=== PATIENT | male | born 1945 | race Caucasian/White ===

== ENCOUNTER → 2016-06-27 | Outpatient (CLI) | payer MEDICARE, OTHER ==
--- NOTE | 2016-06-27 07:40 | US ---
EXAMINATION TYPE: US gallbladder DATE OF EXAM: 06/27/2016 7:22 AM COMPARISON: NONE CLINICAL HISTORY: 70-year-old male with abdominal pain. TECHNIQUE: Multiple sonographic images of the right upper quadrant are obtained. FINDINGS: Liver Length: 16.0cm Gallbladder Wall: 3.5 mm CBD: 0.4cm Right Kidney: 11.7 x 4.9 x 5.8cm Pancreas: Within normal limits. Liver: Reaching the upper limits of normal in size. There is increased echogenicity with heterogeneo us echotexture. This secondarily limits assessment for focal lesion. Gallbladder: There is borderline to mild gallbladder wall thickening. No abnormal distention, perich olecystic fluid, or shadowing calculi. Evidence for sonographic Costa's sign: no CBD: Within normal limits. Right Kidney: No hydronephrosis. IMPRESSION: 1. Liver reaching the upper limits of normal in size. There is also increased echogenicity and hetero geneous echotexture. Correlate for hepatic steatosis or other nonspecific hepatocellular disease. 2. Nonspecific gallbladder wall thickening. No ancillary findings of acute cholecystitis. Gallbladder wall thickening can be seen in other settings such as fluid overload states and with adjacent inflam mation (hepatitis, pancreatitis, etc.). Clinical correlation recommended.
== END | disposition home or self-care (01) ==
LOC: RADUSWWP 06:51
PROVIDERS: ATTEND Surgery Plastic and Reconstructive Surgery
DX: K82.8 Other specified diseases of gallbladder (principal); R10.84 Generalized abdominal pain
CPT/HCPCS: 76705

== ENCOUNTER 2016-07-03 08:42 | Day surgery (SDC) | payer MEDICARE, OTHER ==
[2016-06-28 15:07] VITALS: BMI 28.1
[~2016-07-03 08:42] MED LIST: LACTATED RINGERS 1,000 ML IV SCH; LIDOCAINE 1% 20 ML VIAL (10MG/ML) FOR IV START INTRADERMA PRN
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
[2016-07-03] MEDS ORDERED: LIDOCAINE 1% INJ 10MG/ML (20 ML MDV) ONE (09:45)
[2016-07-03] MEDS ORDERED: PROPOFOL 10 MG/ML 20 ML VIAL IV ONE (09:45)
[2016-07-03 09:46] VITALS: TEMP 98.1
--- NOTE | 2016-07-03 10:00 | P.PCN ---
Date of Procedure: 07/03/16 Description of Procedure: PREOPERATIVE DIAGNOSIS: Gastroesophageal reflux disease. POSTOPERATIVE DIAGNOSIS: Erosive esophagitis. Diaphragmatic hiatal hernia. Gastroesophageal reflux disease. OPERATION: Esophagogastroduodenoscopy with biopsies along antrum and esophagus. SURGEON: Melania Murillo MD ANESTHESIA: MAC. INDICATIONS: The patient is a 70-year-old male who presents with a history of reflux disease. Benefits and risks of the procedure were described. Informed consent was obtained. DESCRIPTION: The patient was brought into the endoscopy suite and laid in the left lateral decubitus position. An Olympus gastroscope was passed along the posterior oropharynx down to the distal esophagus where the squamocolumnar junction was encountered at 35 cm from the incisors. The stomach was entered and minimal bile reflux was found. Additional findings are listed below. Biopsies with cold forceps were obtained of the antrum. The first through third portion of the duodenum was examined and unremarkable. Retroflexion of the scope confirmed Hill grade 4 lower esophageal valve. The squamocolumnar junction demostrated LA grade D erosive esophagitis. The stomach was desufflated. The patient tolerated the procedure well. FINDINGS: Squamocolumnar junction 35 cm from the incisors. Diaphragmatic hiatus at 39 cm from the incisors. Hiatal hernia, 4 cm, fixed. Hill grade 4 lower esophageal valve. LA grade D erosive esophagitis. No active duodenitis. RECOMMENDATIONS: Continue medical therapy. Further recommendations pending results of pathology report. Upper endoscopy as needed. Recommend antireflux operation for possible Cuellar's disease.
[2016-07-03 10:29] VITALS: BP 113/66; PULSE 66; RESP 18
== END 2016-07-03 10:50 | disposition home or self-care (01) ==
LOC: ORWHC2ENDO 08:42
PROVIDERS: ATTEND Surgery Plastic and Reconstructive Surgery
DX: K21.0 Gastro-esophageal reflux disease with esophagitis (principal); K44.9 Diaphragmatic hernia without obstruction or gangrene; J44.9 Chronic obstructive pulmonary disease, unspecified; Z86.73 Personal history of transient ischemic attack (TIA), and cerebral infarction without residual deficits; I10 Essential (primary) hypertension; E78.5 Hyperlipidemia, unspecified; Z79.82 Long term (current) use of aspirin; Z79.899 Other long term (current) drug therapy; Z87.891 Personal history of nicotine dependence
CPT/HCPCS: 88305; 43239; J2001; J2704

== ENCOUNTER 2016-09-20 06:41 | Inpatient (IN) | payer MEDICARE, OTHER ==
[2016-09-16 15:49] VITALS: BMI 28.1
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
[~2016-09-20 06:41] MED LIST changes: +ACETAMINOPHEN IV (For NPO) 1,000 MG in EMPTY BAG 1 BAG IVPB ONE; +DEXAMETHASONE SOD PHOSPHATE 10 MG/ML 1 ML VIAL IV ONE; +HEPARIN SODIUM,PORCINE 5,000 UNIT/ML 1 ML VIAL SQ ONE; +HYDROmorphone 1 MG/ML 1 ML SYRINGE IVP PRN; -LACTATED RINGERS 1,000 ML IV SCH; +MIDAZOLAM 2 MG/2 ML VIAL IV PRN; +ONDANSETRON 4 MG/2 ML VIAL IVP ONE; +SCOPOLAMINE 1.5MG/72HR PATCH TRANSDERM ONE; +ceFAZolin 2 GM in SODIUM CHLORIDE 0.9% 100 ML IVPB ONE
[2016-09-20] MEDS: LACTATED RINGERS 1,000 ML IV SCH (07:50)
[2016-09-20] MEDS ORDERED: fentaNYL (PF) 50 MCG/ML 2 ML AMP ONE (08:00)
[2016-09-20] MEDS ORDERED: NEOSTIGMINE 1 MG/ML 10 ML VIAL ONE (08:00)
[2016-09-20] MEDS ORDERED: SUCCINYLCHOLINE CHLORIDE 100 MG/5 ML SYR IV ONE (08:00)
[2016-09-20] MEDS ORDERED: PROPOFOL 10 MG/ML 20 ML VIAL IV ONE (08:00)
[2016-09-20] MEDS ORDERED: LIDOCAINE 1% INJ 10MG/ML (20 ML MDV) ONE (08:00)
[2016-09-20] MEDS ORDERED: ePHEDrine 50 MG/ML 1 ML AMP ONE (08:00)
[2016-09-20] MEDS ORDERED: VECURONIUM 10 MG VIAL IV ONE (08:00)
[2016-09-20] MEDS ORDERED: HYDROmorphone (PF) 1 MG/ML ONE (08:00)
[2016-09-20] MEDS ORDERED: MIDAZOLAM 2 MG/2 ML VIAL ONE (08:00)
[2016-09-20] MEDS ORDERED: GLYCOPYRROLATE 0.2 MG/ML 2 ML VIAL ONE (08:00)
[2016-09-20] MEDS ORDERED: PHENYLEPHRINE-0.9% NACL SYG 1 MG/10 ML SYRINGE ONE (08:00)
[2016-09-20 08:09] LABS: Basophils # (A) 0.1 k/uL (0-0.2); Basophils % (A) 1 %; CHCM 35.4; Eosinophils # (A) 0.3 k/uL (0-0.7); Eosinophils % (A) 6 %; HCT 39.3 % (39.0-53.0); HDW 3.05; HGB 13.6 gm/dL (13.0-17.5); Luc # (Auto) 0.13; Luc % (Auto) 2; Lymphocytes # (A) 1.4 k/uL (1.0-4.8); Lymphocytes % (A) 26 %; MCH 33.3 pg (25.0-35.0); MCHC 34.5 g/dL (31.0-37.0); MCV 96.5 fL (80.0-100.0); Mean Platelet Volume 7.4; Monocytes # (A) 0.4 k/uL (0-1.0); Monocytes % (A) 7 %; Neutrophils # (A) 3.1 k/uL (1.3-7.7); Neutrophils % (A) 57 %; RBC 4.08 m/uL (4.30-5.90); RDW 13.4 % (11.5-15.5); WBC 5.4 k/uL (3.8-10.6); WBC (Perox) 5.42
[2016-09-20 08:20] LABS: ALT 21 U/L (21-72); AST 18 U/L (17-59); Alkaline Phosphatase 42 U/L (38-126); Anion Gap 10 mmol/L; Blood Urea Nitrogen 16 mg/dL (9-20); Calcium 9.4 mg/dL (8.4-10.2); Carbon Dioxide 23 mmol/L (22-30); Chloride 106 mmol/L (98-107); Glucose 83 mg/dL (74-99); Non-African American GFR(MDRD) >60 (>60 ml/min/1.73 sqM); Potassium 3.9 mmol/L (3.5-5.1); Sodium 139 mmol/L (137-145); Total Bilirubin 0.8 mg/dL (0.2-1.3); Total Protein 5.9 g/dL (6.3-8.2)
[2016-09-20] MEDS ORDERED: BUPIVACAIN-EPI 0.25%-1:200,000 30 ML VIAL SQ ONE ×2 (08:34)
[2016-09-20] MEDS ORDERED: SIMETHICONE 40 MG/0.6 ML DROPS 2,000 MG/30 ML BOTTLE PO PRN (10:50)
[2016-09-20] MEDS ORDERED: ONDANSETRON 4 MG/2 ML VIAL IVP PRN (10:50)
[2016-09-20] MEDS ORDERED: HYOSCYAMINE ORAL DROPS 1.875 MG/15 ML BOTTLE PO PRN (10:50)
[2016-09-20] MEDS ORDERED: NALOXONE 0.4 MG/ML 1 ML VIAL IV PRN (10:50)
--- NOTE | 2016-09-20 10:50 | P.OP ---
Date of Procedure: 09/20/16 Description of Procedure: SURGEON: GELACIO FIORE MD PHYSICIAN LOCUMS URGENT CARE: NONE PREOPERATIVE DIAGNOSES: 1. Regurgitation. 2. Symptomatic diaphragmatic hiatal hernia. 3. Gastroesophageal reflux disease. 4. Atypical chest pain. 5. Angina. 6. COPD. 7. Previous history of CVA/TIA. 8. Hypertensive heart disease with heart failure, diastolic dysfunction. 9. Previous history of ischemic small bowel. 10. Migraines. 11. Kidney stones. POSTOPERATIVE DIAGNOSES: 1. Regurgitation. 2. Symptomatic diaphragmatic hiatal hernia. 3. Gastroesophageal reflux disease. 4. Atypical chest pain. 5. Paraesophageal midline diaphragmatic hernia, 5 cm. 6. COPD. 7. Previous history of CVA/TIA. 8. Hypertensive heart disease with heart failure, diastolic dysfunction. 9. Previous history of ischemic small bowel. 10. Migraines. 11. Kidney stones. 12. Angina. OPERATION: 1. Laparoscopic repair of incarcerated paraesophageal hiatal hernia 5 cm with mesh, [place] Biopatch A 8 x 8 cm. 2. Laparoscopic Jm fundoplasty. 3. Intraoperative esophagogastroduodenoscopy. ANESTHESIA: General with 30 mL 0.25% Marcaine with epinephrine. ESTIMATED BLOOD LOSS: 10 mL SPECIMENS: None. COMPLICATIONS: None. INDICATIONS: The patient is a 70-year-old male with long-standing history of gastroesophageal reflux disease including regurgitation. He completed an upper endoscopy demonstrating a symptomatic diaphragmatic hiatal hernia. Additionally a manometry demonstrating no evidence of achalasia or scleroderma. His total lower esophageal sphincter length including intra-abdominal length were short. Surgical intervention with a paraesophageal hiatal hernia repair, Jm fundoplasty and mesh was described. Risks and benefits including but not limited to collapse of the lung, dysphagia, recurrence, need for revisional surgery were reviewed in detail. Informed consent was obtained as all benefits and risks were described. DESCRIPTION: Patient was brought into the operating room, laid in supine position on a split-leg table. After general induction, the abdomen was prepped and draped in a standard sterile fashion using ChloraPrep. An [place] drape was placed. Hodges catheter was not place as the patient had voided. A timeout protocol was confirmed with the surgical team, for which the patient's name, procedure to be performed including DVT prophylaxis with bilateral SCDs, and preoperative antibiotics were also confirmed. From the xiphoid to the umbilicus, an incision was made approximately 12 cm distal and off to the left of the xiphoid using #11 blade after localizing the skin with anesthetic. His thoracic length is 19 cm for his 5 foot 7 inch frame. A 0-degree 5 mm laparoscopic trocar entry was performed to enter the peritoneal cavity at 12 cm distal to the xiphoid. Diagnostic laparoscopy demonstrated no hepatomegaly. A 5 mm trocar was placed along the left lateral costal margin followed by a 11 mm port along the left midclavicular line. A Abner medium-sized liver retractor was placed below the xiphoid and held in place using an iron spring intern. The patient was placed in steep reverse Trendelenburg position. Initial attention was brougth at the hiatus where a 5-cm defect of the anterior hiatus was measured. Circumferentially, the phrenoesophageal ligament and the hiatus were mobilized such that the right and left cathi were visualized. The final defect was 5 cm in size. The distal esophagus intra-abdominal length of at least 3 cm was obtained as moderate dissection into the chest was performed. The bilateral vagi nerves were identified and freed from harm during this portion of dissection. To adequately mobilize the posterior esophagus, the greater curvature of the stomach was mobilized along the short gastrics. Additional difficulty of the case included dense adherence of the gastric cardia to the diaphragm, hiatus and immediate adherence to the spleen. Careful dissection over 30 minutes was performed without injury to the stomach or spleen. The hiatus was reapproximated using 2-0 Surgidac on an Endo Stitch with a [id number] suture posteriorly. [place] Biopatch A 8 x 8 cm was cut in a "arriaga-hole fashion" and placed as an onlay and buttressed to the posterior and anterior hiatal hernia repair. The mesh was tacked to the left cathi using 2-0 Surgidac. The hiatal repair was consistent with a 56-Hungarian bougie as a fenestrated grasper had easily passed through the repair. I then went to the head of the bed to do an intraoperative esophagogastroduodenoscopy. The squamocolumnar junction laid into the intra- abdominal cavity. Additionally no injury to the stomach or esophagus was identified. No gastric or duodenal ulcers were found. A Hill grade 1 lower esophageal valve was confirmed. The stomach was desufflated. This concluded endoscopic portion procedure. All instruments and pneumoperitoneum were evacuated from the abdominal cavity. The incisions were reapproximated using 4-0 Monocryl in a subcuticular fashion for the skin. Total of 30 mL 0.25% Marcaine with epinephrine was infiltrated to all wounds for postop analgesia. Dermabond was applied to the skin. At the end of the procedure, needle, sponge, and instrument count was verified correct by certified surgical assistant. Total of 10 mL blood loss. Intraoperative films were taken and shared with the patient's family. FINDINGS: 1. 5 cm midline paraesophageal hiatal hernia, incarcerated type. 2. [place] Biopatch A 8 x 8 cm used for hernioplasty of the hiatus. 3. Hiatus repair consistent with 56-Hungarian bougie. 4. Dense adherence of super pole of the stomach to hiatus, diaphragm and adherence to the spleen requiring more than 30 minutes of additional dissection.
[2016-09-20] MEDS ORDERED: TAMSULOSIN 0.4 MG CAP.ER.24H PO STA (10:53)
[2016-09-20] MEDS ORDERED: ALBUTEROL INHALER 60 PUFF/8 GM INHALER INHALATION PRN (10:54)
[2016-09-20] MEDS ORDERED: NITROGLYCERIN SL TABS 0.4 MG TAB SUBLINGUAL PRN (10:54)
[2016-09-20] MEDS ORDERED: LORazepam 0.5 MG TAB PO PRN (10:54)
[2016-09-20] MEDS ORDERED: ACETAMINOPHEN IV (For NPO) 1,000 MG in EMPTY BAG 1 BAG IVPB ONE (12:30)
[2016-09-20] MEDS: GABAPENTIN 100 MG CAP PO SCH ×2 (13:31→20:34)
[2016-09-20] MEDS: 0.9% NACL WITH KCL 20 MEQ/L 1,000 ML IV SCH (14:57)
[2016-09-20] MEDS: ceFAZolin 2 GM in SODIUM CHLORIDE 0.9% 100 ML IVPB SCH ×2 (14:59→23:37)
--- NOTE | 2016-09-20 16:51 | FL ---
EXAMINATION TYPE: FL UGI DATE OF EXAM: 09/20/2016 4:43 PM LIMITED UGI-ESOPHAGRAM: CLINICAL HISTORY: History of multiple abdominal surgeries presents with severe reflux-like symptoms status post Justino fundoplication earlier today. TECHNIQUE: Limited esophagram is performed utilizing 50 oz of Omnipaque 350. A total of 92 seconds o f fluoroscopic time was utilized during procedure. FINDINGS: The patient swallowed contrast without difficulty or delay. Esophageal peristalsis and mo tility are satisfactory. There is delayed flow of contrast along the diaphragmatic hiatus into the st omach, there is no evidence of contrast extravasation to suggest leak. Only small amount of contrast flows into stomach majority pooled in dilated distal esophagus. No persistent hiatal hernia is seen. Patient it is noted to remain asymptomatic. IMPRESSION: No evidence of leak status post Justino fundoplication surgery earlier today. Fairly moder ate obstruction at diaphragmatic hiatus or site of surgery is present though patient is noted to yvonne in asymptomatic.
[2016-09-20] MEDS: HYDROmorphone 1 MG/ML 1 ML SYRINGE IVP PRN (18:52)
[2016-09-20] MEDS ORDERED: TAMSULOSIN 0.4 MG CAP.ER.24H PO SCH (21:00)
[2016-09-20] MEDS: HYDROcodone/APAP 15 ML SOLUTION PO PRN (21:55)
[2016-09-21] MEDS: 0.9% NACL WITH KCL 20 MEQ/L 1,000 ML IV SCH (01:13)
[2016-09-21] MEDS: HYDROmorphone 1 MG/ML 1 ML SYRINGE IVP PRN ×2 (01:56→12:58)
[2016-09-21] MEDS: ALBUTEROL NEBULIZED 2.5 MG/3 ML INHALATION PRN ×3 (02:53→11:29)
[2016-09-21] MEDS ORDERED: 0.9% NACL WITH KCL 20 MEQ/L 1,000 ML IV SCH (08:00)
[2016-09-21 08:06] VITALS: RESP 16
[2016-09-21] MEDS: LACTATED RINGERS 1,000 ML IV SCH (08:24)
[2016-09-21] MEDS: HYDROcodone/APAP 15 ML SOLUTION PO PRN (08:29)
[2016-09-21] MEDS: GABAPENTIN 100 MG CAP PO SCH ×2 (08:30→11:22)
[2016-09-21] MEDS ORDERED: ASPIRIN 81 MG CHEW PO SCH (09:00)
[2016-09-21] MEDS ORDERED: amLODIPine 10 MG TAB PO SCH (09:00)
[2016-09-21] MEDS ORDERED: PANTOPRAZOLE 40 MG/10 ML VIAL IV SCH (09:00)
[2016-09-21] MEDS ORDERED: LISINOPRIL 20 MG TAB PO SCH (09:00)
[2016-09-21] MEDS ORDERED: ENOXAPARIN 40 MG/0.4 ML SYRINGE SQ SCH (09:00)
[2016-09-21 09:18] LABS: Anion Gap 10 mmol/L; Blood Urea Nitrogen 10 mg/dL (9-20); Carbon Dioxide 22 mmol/L (22-30); Chloride 106 mmol/L (98-107); Non-African American GFR(MDRD) >60 (>60 ml/min/1.73 sqM); Phosphorous 3.4 mg/dL (2.5-4.5); Potassium 3.9 mmol/L (3.5-5.1); Sodium 138 mmol/L (137-145)
[2016-09-21] MEDS ORDERED: TAMSULOSIN 0.4 MG CAP.ER.24H PO STA (10:43)
--- NOTE | 2016-09-21 10:48 | P.PN ---
Subjective Principal diagnosis: Gastroesophageal reflux disease with hiatal hernia The patient is postoperative day one status post hiatal hernia repair with Jm fundoplasty. He reports mild chest pressure with drinking liquids. He completed an esophagram this morning. He complains of abdominal gas bloat. He was inadvertently given a straw to drink through. Pain is controlled. Objective - Vital Signs Vital signs: Vital Signs Temp 99.2 F 09/21/16 07:00 Pulse 80 09/21/16 07:34 Resp 16 09/21/16 08:00 BP 95/66 09/21/16 07:00 Pulse Ox 92 L 09/21/16 07:00 Intake & Output 09/20/16 09/21/16 09/21/16 18:59 06:59 18:59 Intake Total 2500 650 Output Total 780 2600 195 Balance 1720 -1950 -195 Weight 81.647 kg Intake: IV 2500 Oral 650 Output: Urine 770 2600 195 Straight 195 Estimated Blood Loss 10 Other: Voiding Method Indwelling Catheter Indwelling Catheter - Exam GENERAL: Well developed and in no acute distress. Pleasant. HEENT: No sclera icterus. Extraocular movements grossly intact. Moist buccal mucosa. Head is atraumatic, normocephalic. Hears conversational speech. No nasal drainage. NECK: Supple without lymphadenopathy. No JV distention. CHEST: Non-labored respirations and equal bilateral excursions. CARDIOVASCULAR: Regular rate and rhythm. Palpable 2+ radial pulses. ABDOMEN: Soft, nontender. Has mild to moderate abdominal distention. MUSCULOSKELETAL: No clubbing, cyanosis or edema. NEUROLOGIC: No focal or lateralizing signs. PSYCH: Appropriate affect. Alert and oriented to person, place and time. - Labs CBC & Chem 7: 09/20/16 07:40 09/21/16 07:45 - Imaging and Cardiology Esophagram demonstrates hesitancy of fluid into the stomach. No evidence of leak. Assessment and Plan (1) Status post Jm fundoplication Status: Acute (2) S/P hernia repair Status: Acute (3) GERD (gastroesophageal reflux disease) Status: Acute (4) Hiatal hernia Status: Acute Plan: 1. For his gas bloat, straws were discontinued. Nursing education was provided regarding Jm diet. 2. He has history of obstructive uropathy and is on Flomax. Additional dose of Flomax given this morning. Hodges catheter has been discontinued at 8 AM. Will reevaluate in 6 hours for voids. Bladder scan as needed if no void at noon. 3. For gases distention, Levsin including simethicone for discharge home. 4. Medication adjustment for pharmacy review including crushing medications or liquid form. 5. Potential discharge home pending voids this afternoon.
--- NOTE | 2016-09-21 10:51 | P.DS ---
Providers Date of admission: 09/20/16 06:41 Expected date of discharge: 09/21/16 Attending physician: Melania Murillo Primary care physician: Jayy Schmidt - Discharge Diagnosis(es) (1) Status post Jm fundoplication Current Visit: Yes Status: Acute (2) S/P hernia repair Current Visit: Yes Status: Acute (3) GERD (gastroesophageal reflux disease) Current Visit: No Status: Acute (4) Hiatal hernia Current Visit: No Status: Acute (5) History of urinary tract obstruction Current Visit: Yes Status: Acute Hospital Course: The patient is a 70-year-old gentleman with symptomatic diaphragmatic hiatal hernia including reflux disease. He is status post Jm fundoplasty including hiatal hernia repair. Post-Jm diet instructions reviewed in detail including liquid diet for 2 weeks. He did complain of gas bloat for which medications including simethicone and Levsin was advised for discharge as well. He was asked to avoid all straws to minimize abdominal distention. Medication review including adjustments were advised. Follow-up in the office within 5 days. Prior to discharge, he was unable to void with a history of obstructive uropathy. Urology consultation obtained. Patient will also follow up with urologist outpatient with clear instructions of discontinuing her Hodges catheter the morning of office visit. He was instructed to take those Flomax daily. Pertinent Studies: Esophagram demonstrated no leaks. Procedures: 1. Laparoscopic hiatal hernia repair with mesh. 2. Laparoscopic Jm fundoplasty. 3. Intraoperative esophagogastroduodenoscopy. Patient Condition at Discharge: Stable Plan - Discharge Summary New Discharge Prescriptions: HYDROcodone/APAP [[place] Elixir 7.5-325Mg/15Ml] 15 ml PO Q4HR PRN #300 ml PRN Reason: Pain RX: Simethicone 40 mg/0.6 ml Drops [Mylicon Drops] 40 mg PO QID #120 ml Discharge Medication List RX: Gabapentin [Neurontin] 100 mg PO DAILY@1200 06/17/14 [History] RX: Albuterol Inhaler [Ventolin Hfa Inhaler] 2 puff INHALATION RT-TID PRN [History] RX: Gabapentin [Neurontin] 200 mg PO BID 09/16/14 [History] RX: Aspirin EC [Ecotrin Low Dose] 81 mg PO DAILY tablet. 09/30/14 [Rx] RX: Nitroglycerin Sl Tabs [Nitrostat] 0.4 mg SUBLINGUAL Q5M PRN #0 tab 09/30/14 [Rx] RX: Albuterol Nebulized [Ventolin Nebulized] 2.5 mg INHALATION RT-Q6H PRN [History] LORazepam [Ativan] 0.5 mg PO TID PRN #10 tab 05/24/16 [Rx] Cyanocobalamin (Vitamin B-12) [Vitamin B-12] 1,000 mcg PO DAILY 09/16/16 [ History] amLODIPine BESYLATE/BENAZEPRIL [amLODIPine BESYLATE/BENAZEPRIL 10-20 mg] 1 cap PO DAILY 09/16/16 [History] Tamsulosin [Flomax] 0.4 mg PO HS 09/17/16 [History] HYDROcodone/APAP [[place] Elixir 7.5-325Mg/15Ml] 15 ml PO Q4HR PRN #300 ml [Rx] RX: Simethicone 40 mg/0.6 ml Drops [Mylicon Drops] 40 mg PO QID #120 ml [Rx] Follow up Appointment(s)/Referral(s): Melania Murillo MD [STAFF PHYSICIAN] - 09/24/16 (Please call to confirm time) Patient Instructions/Handouts: *Surgery [facility] - Hodges Catheter Instructions, Hodges Catheter Placement and Care (DC), Adult Laparoscopic Jm Fundoplication (DC), Urinary Leg Bag (GEN), Laparoscopic Hiatal Hernia Repair ( DC) Activity/Diet/Wound Care/Special Instructions: Please follow post-Jm diet. Liquid diet only for 2 weeks. No lifting over 4 pounds in 4 weeks. Please see list for medications to open capsule or crush. After at 6 AM in the morning prior to office visit. Discharge Disposition: HOME SELF-CARE
[2016-09-21 15:37] VITALS: BP 110/74; PULSE 87; TEMP 98.7
== END 2016-09-21 15:52 | disposition home or self-care (01) | DRG 328 ==
LOC: 2ORWHC 06:41 → EDSTATUS 07:30 → 4MS4W 11:24
PROVIDERS: ADMIT Surgery Plastic and Reconstructive Surgery; ATTEND Surgery Plastic and Reconstructive Surgery
PROC: 0BUR4JZ (ICD-10-PCS; principal; 2016-09-20 08:00)
PROC: 0DV44ZZ Restriction of Esophagogastric Junction, Percutaneous Endoscopic Approach (ICD-10-PCS; principal; 2016-09-20 08:00)
PROC: 0BUS4JZ (ICD-10-PCS; principal; 2016-09-20 08:00)
PROC: 0DJ08ZZ Inspection of Upper Intestinal Tract, Via Natural or Artificial Opening Endoscopic (ICD-10-PCS; principal; 2016-09-20 08:00)
DX: K44.9 Diaphragmatic hernia without obstruction or gangrene (principal); J44.9 Chronic obstructive pulmonary disease, unspecified; K21.9 Gastro-esophageal reflux disease without esophagitis; Z87.891 Personal history of nicotine dependence; Z79.899 Other long term (current) drug therapy; Z80.0 Family history of malignant neoplasm of digestive organs; Z82.5 Family history of asthma and other chronic lower respiratory diseases; Z86.73 Personal history of transient ischemic attack (TIA), and cerebral infarction without residual deficits; Z87.442 Personal history of urinary calculi
CPT/HCPCS: 74240; 80051; 80053; 82565; 83735; 84100; 84520; 85025; 94640

== ENCOUNTER 2016-10-22 13:07 | Emergency (ER) | payer MEDICARE, OTHER ==
[2016-10-22 13:19] VITALS: RESP 18
[2016-10-22] MEDS ORDERED: SODIUM CHLORIDE 0.9% 1,000 ML IV ONE (13:30)
[2016-10-22] MEDS ORDERED: MORPHINE SULFATE 4 MG/ML SYRINGE IVP STA (13:30)
[2016-10-22] MEDS ORDERED: KETOROLAC 30 MG/ML 1 ML VIAL IVP STA (13:30)
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
[2016-10-22 14:21] LABS: Basophils % (A) 1 %; CH 33.5; CHCM 35.6; Eosinophils # (A) 0.3 k/uL (0-0.7); Eosinophils % (A) 5 %; HCT 42.3 % (39.0-53.0); HDW 3.17; HGB 14.3 gm/dL (13.0-17.5); Luc % (Auto) 2; Lymphocytes # (A) 1.9 k/uL (1.0-4.8); Lymphocytes % (A) 34 %; MCH 32.1 pg (25.0-35.0); MCHC 33.9 g/dL (31.0-37.0); MCV 94.8 fL (80.0-100.0); Monocytes # (A) 0.4 k/uL (0-1.0); Monocytes % (A) 7 %; Neutrophils # (A) 2.8 k/uL (1.3-7.7); Neutrophils % (A) 52 %; RBC 4.46 m/uL (4.30-5.90); RDW 13.7 % (11.5-15.5); WBC 5.5 k/uL (3.8-10.6); WBC (Perox) 5.49
--- NOTE | 2016-10-22 14:30 | CT ---
EXAMINATION TYPE: CT abdomen pelvis wo con DATE OF EXAM: 10/22/2016 2:24 PM COMPARISON: 05/05/2016 HISTORY: Rt flank pain CT DLP: 374.5 mGycm FINDINGS: LUNG BASES: No evidence for nodule. No evidence for infiltrate. Small fixed hiatal hernia identified. LIVER/GB: The gallbladder is unremarkable. No space-occupying hepatic lesion. PANCREAS: No pancreatic mass identified. No inflammatory process seen. SPLEEN: No evidence for splenomegaly. No intrasplenic lesions seen. ADRENALS: No adrenal nodules identified. No evidence for thickening. KIDNEYS: Nonspecific hypoattenuating lesion mid pole right kidney may reflect a cyst. No nephrolithia sis. No hydronephrosis. BOWEL: Right hemicolectomy changes. Moderate fecal stasis. No evidence of bowel obstruction. No infla mmatory process. Lymph nodes: No evidence for adenopathy greater than 1 cm. Abdominal aorta: Atheromatous changes seen. No evidence for aneurysm. Genital organs: Prostate calcifications identified. Other: Postoperative changes lumbar spine. IMPRESSION: 1. NO EVIDENCE FOR HYDRONEPHROSIS OR NEPHROLITHIASIS. 2. SMALL FIXED HIATAL HERNIA. 3. MODERATE FECAL STASIS.
[2016-10-22 14:31] LABS: Appearance,Urine Clear (Clear); Bilirubin,Urine Negative (Negative); Glucose,Urine (UA) Negative (Negative); Ketones,Urine Negative (Negative); Leukocyte Esterase,Urine Negative (Negative); Nitrite,Urine Negative (Negative); PH, Urine 5.5 (5.0-8.0); Protein,Urine Negative (Negative); Specific Gravity,Urine 1.018 (1.001-1.035); UA Billing (MACRO vs. MICRO) CHEM; Urobilinogen,Urine <2.0 mg/dL (<2.0)
[2016-10-22 14:35] LABS: ALT 24 U/L (21-72); AST 19 U/L (17-59); Alkaline Phosphatase 42 U/L (38-126); Anion Gap 8 mmol/L; Blood Urea Nitrogen 10 mg/dL (9-20); Calcium 9.4 mg/dL (8.4-10.2); Carbon Dioxide 25 mmol/L (22-30); Chloride 107 mmol/L (98-107); Glucose 83 mg/dL (74-99); Non-African American GFR(MDRD) >60 (>60 ml/min/1.73 sqM); Potassium 3.7 mmol/L (3.5-5.1); Sodium 140 mmol/L (137-145); Total Bilirubin 0.7 mg/dL (0.2-1.3); Total Protein 5.9 g/dL (6.3-8.2)
[2016-10-22 15:40] VITALS: BP 127/70; PULSE 61; TEMP 98.3
== END 2016-10-22 15:45 | disposition home or self-care (01) ==
LOC: EC 13:07
DX: R10.9 Unspecified abdominal pain (principal); K59.00 Constipation, unspecified; R39.198 Other difficulties with micturition; M54.9 Dorsalgia, unspecified; I10 Essential (primary) hypertension; F41.9 Anxiety disorder, unspecified; Z87.891 Personal history of nicotine dependence; Z79.899 Other long term (current) drug therapy; Z91.041 Radiographic dye allergy status; Z87.442 Personal history of urinary calculi; Z86.79 Personal history of other diseases of the circulatory system
CPT/HCPCS: 36415; 80053; 85025; 81003; 74176; 99283; 96374; 96375; J2270; J1885; 76705

== ENCOUNTER → 2016-10-22 | Outpatient (CLI) | payer MEDICARE, OTHER ==
--- NOTE | 2016-10-22 18:36 | US ---
EXAMINATION TYPE: US gallbladder DATE OF EXAM: 10/22/2016 6:15 PM COMPARISON: CT and US in PACS 06/27/2016 CLINICAL HISTORY: Abd Pain R10.84. EXAM MEASUREMENTS: Liver Length: 16.0 cm Gallbladder Wall: 0.2 cm CBD: 0.5 cm Right Kidney: 10.4 x 4.9 x 4.6 cm Pancreas: Obscured by bowel gas Liver: Limited visualization due to overlying bowel gas, visualized portions are heterogeneous Gallbladder: Probable sludge visualized Evidence for sonographic Costa's sign: Yes CBD: wnl as visualized, distal portion obscured by bowel gas Right Kidney: Difficult visualization due to bowel gas. Cystic area visualize mid pole measuring 1.0 cm IMPRESSION: 1 cm right renal cortical cyst. Echogenic bile but no gallstones seen. No dilated ducts.
== END | disposition home or self-care (01) ==
LOC: RADUSMAIN 17:45
PROVIDERS: ATTEND Surgery Plastic and Reconstructive Surgery
DX: N28.1 Cyst of kidney, acquired (principal); R10.84 Generalized abdominal pain
CPT/HCPCS: 76705

== ENCOUNTER 2016-10-24 12:20 | Day surgery (SDC) | payer MEDICARE, OTHER ==
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
--- NOTE | 2016-10-24 11:50 | P.HPADDEND ---
H&P Addendum H&P Addendum Date: 10/24/16 Robotic-assisted laparoscopic cholecystectomy also discussed.
[2016-10-24] MEDS ORDERED: LIDOCAINE 1% 20 ML VIAL (10MG/ML) FOR IV START INTRADERMA ONE (13:30)
[2016-10-24] MEDS ORDERED: LACTATED RINGERS 1,000 ML IV ONE ×2 (13:31→17:02)
[2016-10-24 13:41] VITALS: BMI 26.6
[2016-10-24] MEDS ORDERED: MIDAZOLAM 2 MG/2 ML VIAL IV PRN (13:50)
[2016-10-24] MEDS ORDERED: LIDOCAINE 1% 20 ML VIAL (10MG/ML) FOR IV START INTRADERMA PRN (13:50)
[2016-10-24] MEDS ORDERED: DEXAMETHASONE SOD PHOSPHATE 10 MG/ML 1 ML VIAL IV ONE (13:50)
[2016-10-24] MEDS ORDERED: ONDANSETRON 4 MG/2 ML VIAL IVP ONE (13:50)
[2016-10-24] MEDS ORDERED: SCOPOLAMINE 1.5MG/72HR PATCH TRANSDERM ONE (13:50)
[2016-10-24] MEDS ORDERED: ceFAZolin 2 GM in SODIUM CHLORIDE 0.9% 100 ML IVPB ONE (14:48)
[2016-10-24] MEDS ORDERED: ACETAMINOPHEN IV (For NPO) 1,000 MG in EMPTY BAG 1 BAG IVPB ONE (14:48)
[2016-10-24] MEDS ORDERED: HEPARIN SODIUM,PORCINE 5,000 UNIT/ML 1 ML VIAL SQ ONE (14:49)
[2016-10-24] MEDS ORDERED: SUCCINYLCHOLINE CHLORIDE 100 MG/5 ML SYR IV ONE (15:10)
[2016-10-24] MEDS ORDERED: fentaNYL (PF) 50 MCG/ML 2 ML AMP ONE (15:10)
[2016-10-24] MEDS ORDERED: LABETALOL 5 MG/ML VIAL MDV ONE (15:10)
[2016-10-24] MEDS ORDERED: ePHEDrine 50 MG/ML 1 ML AMP ONE (15:10)
[2016-10-24] MEDS ORDERED: GLYCOPYRROLATE 0.2 MG/ML 2 ML VIAL ONE (15:10)
[2016-10-24] MEDS ORDERED: LIDOCAINE 1% INJ 10MG/ML (20 ML MDV) ONE (15:10)
[2016-10-24] MEDS ORDERED: HYDROmorphone (PF) 1 MG/ML ONE (15:10)
[2016-10-24] MEDS ORDERED: ROCURONIUM BROMIDE 10 MG/ML 10 ML VIAL IV ONE (15:10)
[2016-10-24] MEDS ORDERED: NEOSTIGMINE 1 MG/ML 10 ML VIAL ONE (15:10)
[2016-10-24] MEDS ORDERED: PROPOFOL 10 MG/ML 20 ML VIAL IV ONE (15:10)
[2016-10-24] MEDS ORDERED: MIDAZOLAM 2 MG/2 ML VIAL ONE (15:10)
[2016-10-24] MEDS ORDERED: BUPIVACAIN-EPI 0.25%-1:200,000 30 ML VIAL SQ ONE (15:46)
[2016-10-24] MEDS: HYDROmorphone 1 MG/ML 1 ML SYRINGE IVP PRN ×4 (17:36→18:03)
[2016-10-24] MEDS ORDERED: NALOXONE 0.4 MG/ML 1 ML VIAL IV PRN (18:13)
[2016-10-24] MEDS ORDERED: METOCLOPRAMIDE 5 MG/ML 2 ML VIAL IVP PRN (18:13)
[2016-10-24] MEDS ORDERED: NITROGLYCERIN SL TABS 0.4 MG TAB SUBLINGUAL PRN (18:16)
[2016-10-24] MEDS ORDERED: ALBUTEROL NEBULIZED 2.5 MG/3 ML INHALATION PRN (18:16)
[2016-10-24] MEDS ORDERED: ALBUTEROL INHALER 60 PUFF/8 GM INHALER INHALATION PRN (18:16)
--- NOTE | 2016-10-24 18:19 | P.PCN ---
Date of Procedure: 10/24/16 Preoperative Diagnosis: Right upper quadrant pain, cholecystitis, obstructive uropathy, angina Postoperative Diagnosis: Same, Procedure(s) Performed: Robotic assisted laparoscopic cholecystectomy Anesthesia: GETA, local Surgeon: Melania Murillo Estimated Blood Loss (ml): 10 Pathology: other (gallbladder) Condition: stable Disposition: floor
[2016-10-24 19:33] VITALS: RESP 14
--- NOTE | 2016-10-24 19:33 | P.PN ---
Progress Note - Text Patient seen and evaluated. He complains of moderate pain. He has history of obstructive uropathy and angia. Recommend hospitalization.
[2016-10-24] MEDS: HYDROmorphone 2 MG/ML 1 ML SYRINGE IVP PRN ×2 (19:39→23:39)
[2016-10-24] MEDS: HYDROcodone/APAP 5-325MG 1 EACH TAB PO PRN (20:54)
[2016-10-24] MEDS ORDERED: TAMSULOSIN 0.4 MG CAP.ER.24H PO SCH (21:00)
[2016-10-24] MEDS: DOCUSATE 100 MG CAP PO SCH (21:23)
[2016-10-24] MEDS: GABAPENTIN 100 MG CAP PO SCH (21:23)
[2016-10-25] MEDS: HYDROcodone/APAP 5-325MG 1 EACH TAB PO PRN ×3 (02:17→14:13)
[2016-10-25] MEDS: HYDROmorphone 2 MG/ML 1 ML SYRINGE IVP PRN ×3 (06:22→15:09)
[2016-10-25] MEDS: LACTATED RINGERS 1,000 ML IV SCH ×2 (07:12→10:12)
[2016-10-25 07:16] VITALS: BP 123/81; PULSE 71; TEMP 97.2
[2016-10-25 07:53] LABS: Anion Gap 13 mmol/L; Blood Urea Nitrogen 11 mg/dL (9-20); Calcium 9.5 mg/dL (8.4-10.2); Carbon Dioxide 19 mmol/L (22-30); Chloride 106 mmol/L (98-107); Glucose 94 mg/dL (74-99); Non-African American GFR(MDRD) >60 (>60 ml/min/1.73 sqM); Potassium 4.3 mmol/L (3.5-5.1); Sodium 138 mmol/L (137-145)
[2016-10-25] MEDS: DOCUSATE 100 MG CAP PO SCH (09:11)
[2016-10-25] MEDS: GABAPENTIN 100 MG CAP PO SCH (09:11)
[2016-10-25] MEDS ORDERED: GABAPENTIN 100 MG CAP PO SCH (12:00)
--- NOTE | 2016-10-25 13:20 | P.PN ---
Subjective 70-year-old male being seen and examined this morning. Patient is postop done on October 24 robotic-assisted laparoscopic cholecystectomy for right upper quadrant pain Has chronic obstructive uropathy patient is being straight cath this morning for inability to void 1000cc urine return. . Patient continued to not be able to void indwelling Hodges catheter was inserted with well over 1000 obtained. Patient states he has had this problem it's chronic not new patient has a past medical history of obstructive-uropathy. Patient states he's been seen by a urologist and is on Flomax which he does take daily at home. The last surgical event the patient stated that he did go home with an indwelling Hodges catheter and did follow-up with the urologist in the office as directed Objective - Vital Signs Vital signs: Vital Signs Temp 97.2 F L 10/25/16 07:15 Pulse 71 10/25/16 07:15 Resp 14 10/25/16 02:30 BP 123/81 10/25/16 07:15 Pulse Ox 98 10/25/16 07:15 Intake & Output 10/24/16 10/25/16 10/25/16 18:59 06:59 18:59 Intake Total 2125 320 Output Total 10 1300 Balance 2115 320 -1300 Weight 77.111 kg 77.111 kg Intake: IV 2125 Intake, IV Titration 0 Amount Lactated Ringers 1,000 ml 0 As IV .[facility] Rx#: [id number] Oral 320 Output: Urine 1300 Straight 1300 Estimated Blood Loss 10 - Exam Physical exam 70-year-old male sitting up in bed appears in no acute distress Lungs essentially clear adequate air movement on room air Heart S1-S2 audible regular Abdomen soft surgical sites dry no evidence of redness slight surgical tenderness no stool Extremities no edema noted - Labs CBC & Chem 7: 10/25/16 07:07 Labs: Abnormal Lab Results - Last 24 Hours (Table) 10/25/16 Range/Units 07:07 Carbon Dioxide 19 L (22-30) mmol/L Assessment and Plan Plan: Impression History of urinary tract obstruction followed by urologist Robotic-assisted laparoscopic cholecystectomy done on October 24 Right upper quadrant pain suspect due to cholecystitis Plan Inserted indwelling Hodges catheter leave in place follow-up in the outpatient setting with Dr. Meade Postop surgical care as ordered Pain control Home meds as appropriate DVT and GI prophylaxis Follow-up in the outpatient setting with urology as directed Probable discharge in the next 24 hours The above dictated assessment and findings were discussed with dr laurie Dyson and the plan of care have been dictated as directed. Deann Burger nurse practitioner acting as a scribe for dr grimm
--- NOTE | 2016-10-25 14:54 | P.PN ---
Progress Note - Text Patient case was discussed with urologist. Patient will follow up as outpatient in the office for chronic obstructive uropathy. The catheter will continue with follow-up in urologist office.
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
== END 2016-10-25 16:55 | disposition home or self-care (01) ==
LOC: OR 12:20 → 3SUR 18:30 → OR 10-25 16:55
PROVIDERS: ATTEND Surgery Plastic and Reconstructive Surgery
DX: K81.2 Acute cholecystitis with chronic cholecystitis (principal); K66.0 Peritoneal adhesions (postprocedural) (postinfection); I11.9 Hypertensive heart disease without heart failure; I42.9 Cardiomyopathy, unspecified; K21.9 Gastro-esophageal reflux disease without esophagitis; K52.9 Noninfective gastroenteritis and colitis, unspecified; N13.9 Obstructive and reflux uropathy, unspecified; I20.9 Angina pectoris, unspecified; J44.9 Chronic obstructive pulmonary disease, unspecified; Z86.73 Personal history of transient ischemic attack (TIA), and cerebral infarction without residual deficits; M10.9 Gout, unspecified; Z90.49 Acquired absence of other specified parts of digestive tract; F41.9 Anxiety disorder, unspecified; N40.0 Benign prostatic hyperplasia without lower urinary tract symptoms; Z79.2 Long term (current) use of antibiotics; Z79.899 Other long term (current) drug therapy; Z87.891 Personal history of nicotine dependence
CPT/HCPCS: 88304; 80048; 47562; 49329; J2250; J1170 ×3; J1644; J1100; J2710; J0690; J2405; J2001; J3010; J0131; J0330; J2704

== ENCOUNTER 2017-02-14 15:50 | Inpatient (IN) | payer MEDICARE, OTHER ==
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
[2017-02-14 16:50] LABS: Basophils % (A) 1 %; CHCM 35.6; Eosinophils # (A) 0.1 k/uL (0-0.7); Eosinophils % (A) 2 %; HCT 44.1 % (39.0-53.0); HDW 2.95; HGB 15.6 gm/dL (13.0-17.5); Luc # (Auto) 0.12; Luc % (Auto) 2; Lymphocytes # (A) 1.7 k/uL (1.0-4.8); Lymphocytes % (A) 34 %; MCH 32.9 pg (25.0-35.0); MCHC 35.4 g/dL (31.0-37.0); MCV 93.1 fL (80.0-100.0); Mean Platelet Volume 7.6; Monocytes # (A) 0.3 k/uL (0-1.0); Monocytes % (A) 6 %; Neutrophils # (A) 2.8 k/uL (1.3-7.7); Neutrophils % (A) 55 %; RBC 4.74 m/uL (4.30-5.90); RDW 13.5 % (11.5-15.5); WBC 5.1 k/uL (3.8-10.6)
[2017-02-14 16:59] LABS: INR 1.2 (<1.2); Partial Thromboplastin Time 27.6 sec (22.0-30.0); Prothrombin Time 11.7 sec (9.0-12.0)
[2017-02-14 17:00] LABS: ALT 29 U/L (21-72); AST 18 U/L (17-59); Alkaline Phosphatase 53 U/L (38-126); Anion Gap 8 mmol/L; Blood Urea Nitrogen 11 mg/dL (9-20); Calcium 9.7 mg/dL (8.4-10.2); Carbon Dioxide 27 mmol/L (22-30); Chloride 105 mmol/L (98-107); Glucose 74 mg/dL (74-99); Non-African American GFR(MDRD) >60 (>60 ml/min/1.73 sqM); Potassium 4.4 mmol/L (3.5-5.1); Sodium 140 mmol/L (137-145); Total Bilirubin 0.6 mg/dL (0.2-1.3); Total Protein 6.3 g/dL (6.3-8.2)
--- NOTE | 2017-02-14 17:09 | CT ---
EXAMINATION TYPE: CT brain wo con DATE OF EXAM: 02/14/2017 COMPARISON: 05/21/2016 HISTORY: Dizziness today. CT DLP: 1019.3 mGycm Automated exposure control for dose reduction was used. FINDINGS: There is cerebral cortical atrophy. There is no mass effect nor midline shift. There is no sign of in tracranial hemorrhage. The calvarium is intact. IMPRESSION: CEREBRAL ATROPHY. NO ACUTE INTRACRANIAL ABNORMALITY. NO CHANGE COMPARED TO OLD EXAM.
--- NOTE | 2017-02-14 17:12 | XR ---
EXAMINATION TYPE: XR chest 2V DATE OF EXAM: 02/14/2017 COMPARISON: 05/21/2017 HISTORY: Chest pain TECHNIQUE: Frontal and lateral views of the chest are obtained. FINDINGS: Heart has normal size lungs are clear. There is no heart failure. There is no pleural effu tracy. There are chest leads. Bony thorax is intact. IMPRESSION: No active cardiopulmonary disease. No change.
[2017-02-14 17:13] LABS: Creatine Kinase 61 U/L (55-170)
[2017-02-14 17:25] LABS: Creatine Kinase MB 1.4 ng/mL (0.0-2.4); Troponin I <0.012 ng/mL (0.000-0.034)
[2017-02-14] MEDS ORDERED: RX INFO: IV CONTRAST WAS GIVEN 1 EACH MISC MISCELLANE PRN (18:37)
[2017-02-14] MEDS ORDERED: methylPREDNISolone SOD SUCCI 125 MG/2 ML VIAL IV STA (18:41)
[2017-02-14] MEDS ORDERED: FAMOTIDINE 20 MG/2 ML VIAL IV STA (18:41)
[2017-02-14] MEDS ORDERED: diphenhydrAMINE 50 MG/ML 1 ML VIAL IVP STA (18:41)
[2017-02-14] MEDS ORDERED: ASPIRIN 325 MG TAB PO STA (19:23)
--- NOTE | 2017-02-14 19:47 | CT ---
EXAMINATION TYPE: CT angio chest DATE OF EXAM: 02/14/2017 7:38 PM COMPARISON: NONE HISTORY: Mid to left sided chest pain that wraps around to back. CT DLP: 247.00 mGycm Automated exposure control for dose reduction was used. CONTRAST: CTA scan of the thorax is performed with IV Contrast, patient injected with 78 mL of Omnipaque 350, p ulmonary embolism protocol. There are 3-D post processed images.. FINDINGS: There are emphysematous changes in the upper lobes. The lungs are clear of consolidation. There is no evidence of a pulmonary mass. There is a low-density 1 cm area in the anterior right upper lobe. The re is a low-density 5 mm subpleural area in the lingula left upper lobe. There is no pleural effusion . Heart size is normal. There is no pericardial effusion. There is normal contrast opacification of the pulmonary arteries. I see no filling defect. There are no hilar masses. There is no mediastinal adenopathy. There are a few mediastinal lymph nodes that juancarlos sure less than 1 cm. The bony thorax is intact. IMPRESSION: THERE ARE SMALL DENSITIES IN BOTH LUNGS WHICH PROBABLY RELATE TO SCARRING AND APPEAR NOT SIGNIFICANTL Y DIFFERENT THAN OLD EXAM OF 05/05/2016. THERE IS NO EVIDENCE OF PULMONARY EMBOLISM. EMPHYSEMA.
--- NOTE | 2017-02-14 20:07 | US ---
EXAMINATION TYPE: US carotid duplex BILAT DATE OF EXAM: 02/14/2017 COMPARISON: 05/22/2016 CLINICAL HISTORY: Dizziness. EXAM MEASUREMENTS: RIGHT: Peak Systolic Velocity (PSV) cm/sec ----- Right CCA: 62.5 ----- Right ICA: 86.7 ----- Right ECA: 69.1 ICA/CCA ratio: 1.4 RIGHT: End Diastole cm/sec ----- Right CCA: 20.7 ----- Right ICA: 40.6 ----- Right ECA: 8.7 LEFT: Peak Systolic Velocity (PSV) cm/sec ----- Left CCA: 67.5 ----- Left ICA: 83.6 ----- Left ECA: 80.1 ICA/CCA ratio: 1.2 LEFT: End Diastole cm/sec ----- Left CCA: 24.0 ----- Left ICA: 32.0 ----- Left ECA: 14.8 VERTEBRALS (direction of flow): Right Vertebral: Antegrade Left Vertebral: Antegrade Mild amount of plaque visualized in bilateral bulbs, no elevated velocities, no significant stenosis IMPRESSION: There is antegrade flow in the vertebral arteries. The images and measurements suggest 1 0-20% stenosis in both internal carotid arteries. Criteria for Assigning % of Stenosis / Diameter reduction (Estimation based on the indirect measurements of the internal carotid artery velocities (ICA PSV). 1. Normal (no stenosis)=ICA PSV < 125 cm/s: ratio < 2.0: ICA EDV<40 cm/s. 2. Less than 50% stenosis=ICA PSV < 125 cm/s: ratio < 2.0: ICA EDV<40 cm/s. 3. 50 to 69% stenosis=ICA PSV of 125 to 230 cm/s: ration 2.0 ? 4.0: ICA EDV 40-100 cm/s. 4. Greater than 70% stenosis to near occlusion= ICA PSV > 230 cm/s: ratio > 4.0: ICA EDV > 100 cm/s. 5. Near occlusion= ICA PSV velocities may be low or undetectable: variable ratio and ICA EDV. 6. Total occlusion=unable to detect flow.
[2017-02-14] MEDS ORDERED: NITROGLYCERIN SL TABS 0.4 MG TAB SUBLINGUAL ONE (21:04)
[2017-02-14] MEDS: SODIUM CHLORIDE 0.9% 1,000 ML IV SCH (21:11)
[2017-02-14] MEDS ORDERED: TAMSULOSIN 0.4 MG CAP.ER.24H PO STA (22:39)
[2017-02-14] MEDS ORDERED: GABAPENTIN 100 MG CAP PO STA (22:40)
[2017-02-14] MEDS: ACETAMINOPHEN TAB 500 MG TAB PO PRN (22:50)
[2017-02-15 06:18] LABS: Cholesterol 138 mg/dL (<200); HDL Cholesterol 49 mg/dL (40-60)
[2017-02-15] MEDS: SODIUM CHLORIDE 0.9% 1,000 ML IV SCH ×2 (06:21→21:13)
[2017-02-15] MEDS ORDERED: GABAPENTIN 300 MG CAP PO SCH (09:00)
[2017-02-15] MEDS ORDERED: ASPIRIN 325 MG TAB PO SCH (09:00)
[2017-02-15] MEDS: ATORVASTATIN 40 MG TAB PO SCH (09:17)
[2017-02-15] MEDS: ENOXAPARIN 40 MG/0.4 ML SYRINGE SQ SCH (09:17)
[2017-02-15] MEDS: ASPIRIN 81 MG CHEW PO SCH (09:17)
[2017-02-15] MEDS: GABAPENTIN 300 MG CAP PO SCH (09:17)
--- NOTE | 2017-02-15 10:04 | ECHOF ---
Referral Reason:Thrombus MEASUREMENTS -------- HEIGHT: 170.2 cm WEIGHT: 75.7 kg BP: 148/59 RVIDd: 3.3 cm (< 3.3) IVSd: 1.2 cm (0.6 - 1.1) LVIDd: 4.2 cm (3.9 - 5.3) LVPWd: 1.3 cm (0.6 - 1.1) EDV(Teich): 77 ml IVSs: 1.7 cm LVIDs: 3.0 cm LVPWs: 1.6 cm %IVS Thck: 37 % ESV(Teich): 35 ml EF(Teich): 55 % %FS: 28 % SV(Teich): 42 ml LA Diam: 3.4 cm (2.7 - 3.8) IVC: 1.9 cm LALs A4C: 4.1 cm LAAs A4C: 11.1 cm LAESV A-L A4C: 25 ml LAESV MOD A4C: 24 ml LALs A2C: 5.5 cm LAAs A2C: 15.4 cm LAESV A-L A2C: 37 ml LAESV MOD A2C: 37 ml LAESV(A-L): 35 ml LAESV Index (A-L): 18.75 ml/m Ao Diam: 3.2 cm (2.0 - 3.7) AV Cusp: 2.1 cm (1.5 - 2.6) MV EXCURSION: 12.690 mm (> 18.000) MV EF SLOPE: 83 mm/s (70 - 150) EPSS: 0.2 cm MV E Dread: 0.82 m/s MV DecT: 231 ms MV Dec Dodge: 3.6 m/s MV A Dread: 0.93 m/s MV E/A Ratio: 0.88 MV PHT: 67 ms E/E': 12.06 E': 0.07 m/s AV Vmax: 1.24 m/s AV maxP.16 mmHg FINDINGS -------- Sinus rhythm. This was a technically good study. The left ventricular size is normal. There is mild concentric left ventricular hypertrophy. Overall left ventricular systolic function is normal with, an EF between 60 - 65 %. The right ventricle is mildly enlarged. Normal LA size by volume 22+/-6 ml/m2. The right atrium is normal in size. There is mild aortic valve sclerosis. Mild mitral annular calcification present. There is trace mitral regurgitation. The tricuspid valve appears structurally normal. The pulmonic valve was not well visualized. The aortic root size is normal. Normal inferior vena cava with normal inspiratory collapse consistent with estimated right atrial pressure of 5 mmHg. There is no pericardial effusion. CONCLUSIONS -------- 1. Sinus rhythm. 2. Mild mitral annular calcification present. 3. There is trace mitral regurgitation. 4. The tricuspid valve appears structurally normal. 5. The pulmonic valve was not well visualized. 6. The aortic root size is normal. 7. Normal inferior vena cava with normal inspiratory collapse consistent with estimated right atrial pressure of 5 mmHg. 8. There is no pericardial effusion. 9. This was a technically good study. 10. The left ventricular size is normal. 11. There is mild concentric left ventricular hypertrophy. 12. Overall left ventricular systolic function is normal with, an EF between 60 - 65 %. 13. The right ventricle is mildly enlarged. 14. Normal LA size by volume 22+/-6 ml/m2. 15. The right atrium is normal in size. 16. There is mild aortic valve sclerosis. SLAG WHEELER: Thu Wu RDCS
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
--- NOTE | 2017-02-15 12:25 | MR ---
EXAMINATION TYPE: MR brain wo/w con DATE OF EXAM: 02/15/2017 COMPARISON: MRI brain May 22, 2016. CT brain February 14, 2017. HISTORY: chest and back pain/pressure radiating into right arm, dizziness TECHNIQUE: Multiplanar, multisequence images of the brain and brainstem is performed without and with IV contras t, utilizing 7.0 mL intravenous Gadavist . FINDINGS: Diffusion weighted images demonstrate no evidence of a recent infarct or other diffusion ab normality. There is no worrisome extra-axial fluid collection. There is persistent ventricular and s ulcal prominence consistent with diffuse cerebral atrophy. There is persistent slightly more prominen t bilateral frontal lobe atrophy with prominent sulci along the anterior interhemispheric fissure red emonstrated. More suspicious temporal lobe atrophy is noted. There are focal and confluent areas of T 2 hyperintensity seen throughout the deep and periventricular white matter. Lesions are nonspecific i n appearance and distribution but most likely on basis of product of chronic small vessel ischemic ch yessica in patient this age. Midline structures demonstrate normal morphology. The craniocervical junction appears within normal limits. Post contrast images demonstrate no abnormal enhancement. The dural venous sinuses appear pa tent. The visualized sinuses are relatively clear on current study. The globes are intact. No suspici ous fluid signal is seen in mastoid air cells. IMPRESSION: 1. No evidence of a recent infarct. 2. There is persistent moderate diffuse cerebral atrophy and chronic small vessel ischemic change wit h more asymmetrically more prominent bilateral frontal and temporal lobe atrophy once again noted finnegan sing concern for Pick's disease.
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
[2017-02-15] MEDS ORDERED: GABAPENTIN 100 MG CAP PO SCH (21:00)
[2017-02-15] MEDS: GABAPENTIN 100 MG CAP PO SCH (21:13)
[2017-02-15] MEDS: TAMSULOSIN 0.4 MG CAP.ER.24H PO SCH (21:13)
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
[2017-02-16] MEDS: SODIUM CHLORIDE 0.9% 1,000 ML IV SCH ×3 (05:19→21:30)
[2017-02-16] MEDS: ASPIRIN 81 MG CHEW PO SCH (08:53)
[2017-02-16] MEDS: ATORVASTATIN 40 MG TAB PO SCH (08:54)
[2017-02-16] MEDS: ENOXAPARIN 40 MG/0.4 ML SYRINGE SQ SCH (08:54)
[2017-02-16] MEDS: GABAPENTIN 300 MG CAP PO SCH (08:54)
[2017-02-16] MEDS: ACETAMINOPHEN TAB 500 MG TAB PO PRN ×2 (09:00→17:02)
--- NOTE | 2017-02-16 12:12 | P.PN ---
<AlvinoRamses - Last Filed: 02/16/17 19:21> Progress Note - Text Attending note. Date of service-02/16/2017 This patient was seen and examined by me . Discussed the patient with my nurse practitioner Ms. Hectortalia. Admitted with what appears to be all viral pleuritic pain. Some dizziness was present. On examination: Lungs-decreased breath sounds, cardiovascular first seconds are normal, psych and baseline able to answer simple questions Investigations: Assessment and plan: Probably a Acute viral pleurisy. Discussed with the patient that it it makes her take some time to get better. Also associated acute vestibulitis. We'll start the patient on Antivert. <MarilynjonathanGwendolyn Sharri - Last Filed: 02/16/17 20:51> Progress Note - Text DATE OF SERVICE: 02/16/2017 PRESENTING COMPLAINT: Dizziness and chest pain HISTORY OF PRESENT ILLNESS: 71-year-old patient presented with chest pain for about a week with associated dizziness. INTERVAL HISTORY: 02/16/2017: Patient lying in bed appears comfortable. Cardiology has seen the patient etiology of chest pain appears to be pleuritic in nature noncardiac etiology. Neurology saw the patient ataxia was not reproducible, has come intermittent compensatory gait. Has reproducible vision changes which may contribute to his dizziness. EEG is pending for today. Appetite good eating about 50-75% of his meal, last BM 02/15/2017. Able to ambulate with some assistance. REVIEW OF SYSTEMS: Done for constitutional ,cardiovascular, GI, pulmonary, neurologic with relevant findings as above. CURRENT MEDICATIONS Aspirin, Lipitor, Neurontin, Flomax, Lovenox. PHYSICAL EXAM VITAL SIGNS: Temperature 98.2, pulse 72, respiratory rate 17, blood pressure 113/64, oxygen saturation 97% on 2 L. GENERAL APPEARANCE: Lying in bed, not in distress. EYES: Pupils equal. Conjunctiva normal. NECK: JVD not raised. Mass not palpable. RESPIRATORY: Respiratory effort normal. Lungs clear to auscultation. CARDIOVASCULAR: First and second sounds normal. No edema. ABDOMEN: Soft. Liver and spleen not palpable. No tenderness. No mass palpable. PSYCHIATRY: Alert and oriented x3. Mood and affect normal. NEUROLOGICAL: Cranial nerves grossly intact. No facial asymmetry. Power and sensation grossly intact, dizziness upon standing, no noted ataxia INVESTIGATIONS: LABS: None new ASSESSMENT: -Left-sided chest pain likely pleurisy given his presentation and associated upper respiratory tract nasal stuffiness, likely viral in nature. Doubt cardiac cause. -Dizziness could be associated with the above presentation. We'll check rule out orthostatics. 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 Hays, dizziness should be followed with ENT further workup can be done outpatient, Antivert 12.5 mg 3 times a day added and memory loss has been greater than 20 years therefore will need further workup outpatient to discover the underlying etiology of memory loss. Plan of care discussed with the patient and he is in agreement. Discharge planning for the next 24-48 hours. We will continue to follow closely. FAMILY RESOURCE COORDINATOR statement: Patient was seen and examined by nurse practitioner Gwendolyn Young and all elements of the case discussed with attending Dr. De Oliveira
[2017-02-16] MEDS ORDERED: MECLIZINE 12.5 MG TAB PO PRN (17:08)
[2017-02-16 18:46] LABS: Glucose,Whole Blood 96 mg/dL (75-99)
[2017-02-16] MEDS: GABAPENTIN 100 MG CAP PO SCH (21:12)
[2017-02-16] MEDS: TAMSULOSIN 0.4 MG CAP.ER.24H PO SCH (21:12)
[2017-02-16] MEDS: MECLIZINE 12.5 MG TAB PO SCH ×2 (21:13→22:24)
[2017-02-16] MEDS ORDERED: RX INFO: IV CONTRAST WAS GIVEN 1 EACH MISC MISCELLANE PRN (22:20)
--- NOTE | 2017-02-16 22:31 | P.PN ---
Subjective Principal diagnosis: Ataxia, Dizziness February 16, 2017: Provider entered the patient's room today and noted that the patient was right lateral recumbent, provider called patient by name the patient turned towards provider and it was immediately noted that the patient was friedman, experiencing difficulty breathingwheezing and was also having difficulty with air exchange. Patient was immediately placed on nasal cannula at 6 liters per minute, nursing staff assistance requested, nonrebreather mask placed at 15 L/m, patient placed in high followers. Within approximately 5 minutes, the patient' s difficulty breathing relented and patients normal skin color return. Patient was diaphoretic and stated that he was having difficulty due to his previously noted pleurisy. Additionally, the patient states that he has been having upper extremity numbness and tingling as well as vertigo with changes of position of the head and neck. Patient's complaints and further investigation revealed that his vision changes are significantly positional. February 15, 2017: Patient is a 71-year-old male being followed by neurology for ataxia and dizziness, rule out CVA. Patient has a history of heart disease, TIA. Denies prior symptoms and began having difficulty walking when he woke up 2 days ago. Symptoms continued after napping that day the patient presented to the emergency department. A presentation the patient was very ataxic, but denied headache, numbness, tingling in lateralizing weakness. Patient also complained of left-sided chest pain. MRI of the brain conducted on February 15, 2017 noted no evidence of recent infarct. Persistent moderate diffuse cerebral atrophy and chronic small vessel ischemic changes with more asymmetric prominent bilateral frontal and temporal lobe atrophy once again noted raising concern for pick's disease. Objective - Vital Signs Vital signs: Vital Signs Temp 97.8 F 02/16/17 20:00 Pulse 56 L 02/16/17 20:00 Resp 17 02/16/17 20:00 BP 142/80 02/16/17 20:00 Pulse Ox 98 02/16/17 20:00 Intake & Output 02/16/17 02/16/17 02/17/17 06:59 18:59 06:59 Intake Total 1200 1060 600 Balance 1200 1060 600 Weight 74.5 kg Intake: IV 1200 700 Sodium Chloride 0.9% 1, 1200 700 000 ml @ 100 mls/hr IV . Q10H [facility] Rx#:[id number] Oral 360 600 Other: Voiding Method Toilet Toilet - Exam Constitutional: AOx3, cooperative HEENT: NC/AT, no facial asymmetry is seen. Throat: Supple, no masses Respiratory: No increased work of breathing Cardiac: Regular rate and Rhythm GI: non tender, non distended Musculoskeletal: Career Services Director strengths are equal bilaterally 5/5, Lower extremity strengths are equal bilaterally at 5/5. Neurological: CN II-XII in tact, patient was AOx3, speech and language are normal, no unilateralizing weakness, no seizure activity note on physical exam. Sensation was normal. bilateral upper extremity numbness and tingling. Tenderness to touch and palpation of the cervical spine, cervical paraspinal muscles and reproducible dizziness with head and neck positional changes. Integementary: no rash, no erythema Psychiatric: mood and affect appropriate - Labs CBC & Chem 7: 02/14/17 16:20 02/14/17 16:20 Assessment and Plan (1) Dizziness Status: Acute (2) Ataxia Status: Acute (3) Pick's disease Status: Acute Plan: 1. Ataxia: Patient states that since approximately 3-4 days ago, he has begun having ataxia with veering to the right on ambulation. On exam, the patient did not have ataxia that was reproducible. Patient does state that it is intermittent with no distinct pattern, frequency. 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 Patient is being followed by Dr Hays out patient. He does appear to have an intermittent compensatory gait. Further workup can be conducted outpatient. 2. Dizziness/Cervicalgia: Patient does have reproducible vision changes with finger to nose. Patient does have reproducible vision changes with rotation of the neck bilaterally. Further questioning reveals patient does have intermittent sensation of choppy vision. Patient does have intermittent sensation of vertigo like symptoms. Patient has not had diagnostic workup for these complaints. Recommended consult for ear nose and throat provider. Patiently currently utilizing Antivert 12.5 mg 3 times a day to 4 times a day as prescribed by primary care provider. CT angiogram of the neck was ordered. patient does have complaints consistent with cervicalgia and radiation the bilateral upper extremities distally to the fingers. No distinct dermatome was noted on exam. Negative Phalen's, negative Tinel's. Further diagnostic workup to include: MRI cervical spine without contrast. 3. Memory loss/pick's disease: Provider noted that the patient was taking sxrp-bzp-cwvrcan prevagen which is a marketed supplement for memory loss. Patient did admit that he has had difficulty with memory for greater than 20 years. He has virtually no memory recollection of his childhood years. Short-term memory will last approximately 1 weeks to a month. Patient has compensated for his long-term memory by forced memorization of important facts, dates, information. Patient will need further workup outpatient to further investigate the underlying etiology of his memory loss. 4. CVA: At this time it does not appear that the patient has had a CVA. Patient's MRI of the brain was negative for any acute process. EEG is pending. Lipid panel has been ordered and received. The results are within normal limits. Patient is currently on 81 mg aspirin. Continue neuro checks per previous order. Status: Neurology will continue to follow and provide further updates as needed or warranted. Feel free to contact our office with any questions. I discussed the patient's pertinent medical information with Dr. Oden. He agrees with the plan of care as implemented.
[2017-02-17] MEDS ORDERED: methylPREDNISolone SOD SUCCI 125 MG/2 ML VIAL IV ONE (02:00)
[2017-02-17] MEDS: SODIUM CHLORIDE 0.9% 1,000 ML IV SCH ×3 (06:46→19:54)
[2017-02-17] MEDS ORDERED: FAMOTIDINE 20 MG/2 ML VIAL IV ONE (07:30)
[2017-02-17] MEDS ORDERED: diphenhydrAMINE 50 MG/ML 1 ML VIAL IVP ONE (07:30)
[2017-02-17] MEDS: ASPIRIN 81 MG CHEW PO SCH (07:43)
[2017-02-17] MEDS: MECLIZINE 12.5 MG TAB PO SCH ×4 (07:43→19:54)
[2017-02-17] MEDS: ATORVASTATIN 40 MG TAB PO SCH (07:43)
[2017-02-17] MEDS: GABAPENTIN 300 MG CAP PO SCH (07:44)
[2017-02-17] MEDS: ENOXAPARIN 40 MG/0.4 ML SYRINGE SQ SCH (07:44)
--- NOTE | 2017-02-17 08:46 | CT ---
EXAMINATION TYPE: CT angio neck DATE OF EXAM: 02/17/2017 HISTORY: dizziness, difficulty ambulating COMPARISON: Carotid ultrasound from [address] DLP: 255 mGycm. Automated Exposure Control for Dose Reduction was Utilized. TECHNIQUE: CTA scan of the neck is performed with IV Contrast, patient injected with 65 mL of Omnipa que 350, axial images are obtained, coronal and sagittal reformatted images are reviewed. Three-D rec onstructed images are created on an independent workstation and reviewed. FINDINGS: Carotid/Vascular Structures: There is mild to moderate mixed plaque in the aortic arch. There is norm al three-vessel origin from the aortic arch. The right common carotid artery shows normal origin from right brachiocephalic artery. There is no significant plaque or stenosis along course of right commo n or internal carotid arteries including carotid bulb . There is patent external carotid artery witho ut significant plaque or stenosis. There is mild mixed plaque in the proximal left internal carotid artery just past bulb. Remainder of common and internal carotid artery shows no significant plaque or stenosis. There is tortuous course to the internal carotid arteries bilaterally. Left external carotid artery shows no significant plaqu e or stenosis. There is dominant left vertebral artery. Vertebral arteries are patent to basilar junction. Other: There is fairly moderate emphysematous change in visualized lung apices. Visualized portion of brain parenchyma shows generalized age-related cerebral atrophy. There is mild to moderate spurring and disc space narrowing at C4-C5 through C6-C7 levels in the mid to lower cervical spine. IMPRESSION: No significant plaque or stenosis in common or internal carotid arteries bilaterally. Fi ndings correlate with recent carotid ultrasound findings.
--- NOTE | 2017-02-17 16:12 | P.PN ---
Subjective Principal diagnosis: Ataxia, Dizziness February 17, 2017: Patient was alert and seated at the bedside eating breakfast. Patient stated that he is still having some dizziness with movement. patient CT angiogram of the neck was negative. Patient is currently on Antivert 12.5 mg 4 times a day, when necessary. Patient states the medication has helped some. However he still has intermittent dizziness. February 16, 2017: Provider entered the patient's room today and noted that the patient was right lateral recumbent, provider called patient by name the patient turned towards provider and it was immediately noted that the patient was friedman, experiencing difficulty breathingwheezing and was also having difficulty with air exchange. Patient was immediately placed on nasal cannula at 6 liters per minute, nursing staff assistance requested, nonrebreather mask placed at 15 L/m, patient placed in high followers. Within approximately 5 minutes, the patient' s difficulty breathing relented and patients normal skin color return. Patient was diaphoretic and stated that he was having difficulty due to his previously noted pleurisy. Additionally, the patient states that he has been having upper extremity numbness and tingling as well as vertigo with changes of position of the head and neck. Patient's complaints and further investigation revealed that his vision changes are significantly positional. February 15, 2017: Patient is a 71-year-old male being followed by neurology for ataxia and dizziness, rule out CVA. Patient has a history of heart disease, TIA. Denies prior symptoms and began having difficulty walking when he woke up 2 days ago. Symptoms continued after napping that day the patient presented to the emergency department. A presentation the patient was very ataxic, but denied headache, numbness, tingling in lateralizing weakness. Patient also complained of left-sided chest pain. MRI of the brain conducted on February 15, 2017 noted no evidence of recent infarct. Persistent moderate diffuse cerebral atrophy and chronic small vessel ischemic changes with more asymmetric prominent bilateral frontal and temporal lobe atrophy once again noted raising concern for pick's disease. Objective - Vital Signs Vital signs: Vital Signs Temp 97.1 F L 02/17/17 04:00 Pulse 78 02/17/17 15:33 Resp 17 02/17/17 15:33 BP 139/76 02/17/17 15:33 Pulse Ox 97 02/17/17 15:33 Intake & Output 02/16/17 02/17/17 02/17/17 18:59 06:59 18:59 Intake Total 1060 2200 1280 Balance 1060 2200 1280 Weight 74.8 kg Intake: IV 700 1600 560 Sodium Chloride 0.9% 1, 700 1600 560 000 ml @ 100 mls/hr IV . Q10H [facility] Rx#:[id number] Oral 360 600 720 Other: Voiding Method Toilet - Exam Constitutional: AOx3, cooperative HEENT: NC/AT, no facial asymmetry is seen. Throat: Supple, no masses Respiratory: No increased work of breathing Cardiac: Regular rate and Rhythm GI: non tender, non distended Musculoskeletal: Physician Office Rep strengths are equal bilaterally 5/5, Lower extremity strengths are equal bilaterally at 5/5. Neurological: CN II-XII in tact, patient was AOx3, speech and language are normal, no unilateralizing weakness, no seizure activity note on physical exam. Sensation was normal. bilateral upper extremity numbness and tingling. Tenderness to touch and palpation of the cervical spine, cervical paraspinal muscles and reproducible dizziness with head and neck positional changes. Integementary: no rash, no erythema Psychiatric: mood and affect appropriate - Labs CBC & Chem 7: 02/14/17 16:20 02/14/17 16:20 Assessment and Plan (1) Dizziness Status: Acute (2) Ataxia Status: Acute (3) Pick's disease Status: Acute Plan: 1. Ataxia: Patient has ataxia with veering to the right on ambulation reported but it has declined. On exam, the patient did not have ataxia that was reproducible. Patient does state that it is intermittent with no distinct pattern, frequency. 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 Patient is being followed by Dr Hays out patient. He does appear to have an intermittent compensatory gait. Further workup can be conducted outpatient. 2. Dizziness/Cervicalgia: Patient does have reproducible vision changes with finger to nose. Patient does have reproducible vision changes with rotation of the neck bilaterally. Further questioning reveals patient does have intermittent sensation of choppy vision. Patient does have intermittent sensation of vertigo like symptoms. Patient has not had diagnostic workup for these complaints. Recommended consult for ear nose and throat provider. Patiently currently utilizing Antivert 12.5 mg 3 times a day to 4 times a day as prescribed by primary care provider. CT angiogram of the neck was ordered and is negative. CT cervical noted mild to moderate spurring and degenerative disc disease from C4-C7. patient does have complaints consistent with cervicalgia and radiation the bilateral upper extremities distally to the fingers. No distinct dermatome was noted on exam. Negative Phalen's, negative Tinel's. Further diagnostic workup to include: MRI cervical spine without contrast can be performed out patient. 3. Memory loss/pick's disease: Provider noted that the patient was taking ohan-stk-vceorrr prevagen which is a marketed supplement for memory loss. Patient did admit that he has had difficulty with memory for greater than 20 years. He has virtually no memory recollection of his childhood years. Short-term memory will last approximately 1 weeks to a month. Patient has compensated for his long-term memory by forced memorization of important facts, dates, information. Patient will need further workup outpatient to further investigate the underlying etiology of his memory loss. 4. CVA: At this time it does not appear that the patient has had a CVA. Patient's MRI of the brain was negative for any acute process. EEG is pending. Lipid panel has been ordered and received. The results are within normal limits. Patient is currently on 81 mg aspirin. Continue neuro checks per previous order. Status: Neurology will clear the patient for discharge. Patient can obtain EEG and MRI cervical out patient. Patient to continue Antivert at current dose and frequency. Patient to follow uup with our office within 10-14 days. Feel free to contact our office with any questions. I discussed the patient's pertinent medical information with Dr. Oden. He agrees with the plan of care as implemented.
[2017-02-17] MEDS: TAMSULOSIN 0.4 MG CAP.ER.24H PO SCH (19:54)
[2017-02-17] MEDS: GABAPENTIN 100 MG CAP PO SCH (19:54)
[2017-02-17] MEDS: ACETAMINOPHEN TAB 500 MG TAB PO PRN (19:59)
[2017-02-18] MEDS: ACETAMINOPHEN TAB 500 MG TAB PO PRN ×4 (02:07→22:23)
--- NOTE | 2017-02-18 08:35 | MR ---
EXAMINATION TYPE: MR cervical spine wo con DATE OF EXAM: 02/18/2017 COMPARISON: 02/02/2011 HISTORY: cervicalgia, dizziness TECHNIQUE: Multiplanar, multisequence images of the cervical spine were acquired. C2-C3: No evidence for degenerative disc disease. No disc bulge/herniation or protrusion. No Canal stenosis. Foramina are patent bilaterally. C3-C4: Central disc bulge with anterior thecal sac compression. No AP spinal canal stenosis is presen t. Neural foramen are patent. C4-C5: Mild disc bulging is anterior thecal sac flattening. No AP spinal canal stenosis present. Mild foraminal narrowing is present on the left. This disc level is somewhat narrowed and is slightly pro gressive from the comparison study. C5-C6: Broad-based disc bulge has moderate anterior thecal sac flattening. No AP spinal canal stenosi s is present. Neural foramen and mild narrowing from uncovertebral joint hypertrophy. C6-C7: Broad-based central disc bulge is present with mild anterior thecal sac compression. No cord c ontact is evident. No spinal canal stenosis present. Uncovertebral joint hypertrophy is moderate righ t foraminal narrowing. Left foramen is patent. C7-T1: No evidence for degenerative disc disease. No disc bulge/herniation or protrusion. No Canal stenosis. Foramina are patent bilaterally. Cervical segments are intact. There is normal alignment. Cervical spinal cord is of normal signal. Craniovertebral junction relationships are within normal limits. IMPRESSION: 1. Disc bulging C3-4 through C6-7. This appears greatest at C5-6 without stenosis. 2. Mild to moderate foraminal narrowing discussed above. Correlate with radicular symptoms.
[2017-02-18] MEDS: ATORVASTATIN 40 MG TAB PO SCH (08:45)
[2017-02-18] MEDS: ENOXAPARIN 40 MG/0.4 ML SYRINGE SQ SCH (08:45)
[2017-02-18] MEDS: MECLIZINE 12.5 MG TAB PO SCH ×4 (08:45→22:24)
[2017-02-18] MEDS: ASPIRIN 81 MG CHEW PO SCH (08:45)
[2017-02-18] MEDS: GABAPENTIN 300 MG CAP PO SCH (08:45)
[2017-02-18] MEDS: IPRATROPIUM-ALBUTEROL 3 ML NEB INHALATION SCH ×4 (08:49→20:00)
--- NOTE | 2017-02-18 11:11 | PN ---
PROGRESS NOTE DATE OF SERVICE: 02/17/2017. PRESENTING COMPLAINT: Dizziness. INTERVAL HISTORY: This patient admitted with what appears to be acute and acute vestibulitis. Started on Antivert. Neurological workup was negative. The patient's dizziness is somewhat better. REVIEW OF SYSTEMS: Review of systems done for constitutional, cardiovascular, GI, pulmonary, musculoskeletal, and neurological; relevant findings as above. CURRENT MEDICATIONS: Current medications include Antivert. EXAMINATION: On examination, temperature 97.1 pulse 64, respirations 17, blood pressure 143/74, pulse of 96 on 2 L. GENERAL APPEARANCE: Lying in bed, awake. EYES: Pupils equal. Conjunctivae normal. NECK: JVD not raised. Mass not palpable. RESPIRATORY: Effort normal. LUNGS: Slightly decreased breath sounds. CARDIOVASCULAR: First and second sounds normal. No edema. PSYCH: Answering questions. INVESTIGATIONS: D-dimer done the previous night was less than 0.17. ASSESSMENT: 1. Episode of acute exacerbation last night. 2. Left-sided chest pain due to probably viral , probably acute vestibulitis. 3. 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 4. Chronic obstructive pulmonary disease in exacerbation-smoker with exacerbation last night. 5. Gastroesophageal reflux disease. 6. Essential hypertension. 7. Primary osteoarthritis in multiple joints. PLAN: Follow with Neurology. Will continue with a dose of Antivert. Care was discussed with the patient. will see how he does. SPECIAL NOTE: Patient was seen on 02/17/17. MMODL / SURJITN: [id number] /
[2017-02-18] MEDS: SODIUM CHLORIDE 0.9% 1,000 ML IV SCH ×2 (12:24→23:07)
--- NOTE | 2017-02-18 14:18 | P.PN ---
<Ramses De Oliveira - Last Filed: 02/18/17 17:28> Progress Note - Text Attending note. Date of service-02/18/2017 This patient was seen and examined by me . Discussed the patient with my nurse practitioner Ms. Young. Dizziness is somewhat better. On Antivert. Neck and arm pain seems to be from radiculopathy. 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 Acute vestibulitis likely viral responding well to Antivert. Dr. Blackburn from orthopedic spine is being consulted <Gwendolyn Young - Last Filed: 02/18/17 17:54> Progress Note - Text DATE OF SERVICE: 02/18/2017 PRESENTING COMPLAINT: Dizziness and chest pain HISTORY OF PRESENT ILLNESS: 71-year-old patient presented with chest pain for about a week with associated dizziness. INTERVAL HISTORY: 02/18/2017: Sitting up on the bed, appears anxious. States his dizziness is improved with the Antivert, just returned from MRI. Continues to have some numbness and tingling to his left upper extremity. Continues to have left-sided chest pain that is reproducible, most painful area just below his left scapula. States it' s painful to take deep breath which is consistent with pleurisy. Appetite is good eating about 50% of his meals, last BM today. Ambulating within the room and hallway 02/17/2017: Started on Antivert. Neurological workup negative dizziness somewhat improved. 02/16/2017: Patient lying in bed appears comfortable. Cardiology has seen the patient etiology of chest pain appears to be pleuritic in nature noncardiac etiology. Neurology saw the patient ataxia was not reproducible, has come intermittent compensatory gait. Has reproducible vision changes which may contribute to his dizziness. EEG is pending for today. Appetite good eating about 50-75% of his meal, last BM 02/15/2017. Able to ambulate with some assistance. REVIEW OF SYSTEMS: Done for constitutional ,cardiovascular, GI, pulmonary, neurologic with relevant findings as above. CURRENT MEDICATIONS Aspirin, Lipitor, Neurontin, Flomax, Lovenox. PHYSICAL EXAM VITAL SIGNS: Temperature 97.6, pulse 74, respiratory rate 16, blood pressure 136/79, oxygen saturation 95% on room air. GENERAL APPEARANCE: Sitting up on the bed, somewhat anxious appearing. EYES: Pupils equal. Conjunctiva normal. NECK: JVD not raised. Mass not palpable. RESPIRATORY: Respiratory effort normal. Lungs diminished to auscultation. CARDIOVASCULAR: First and second sounds normal. No edema. ABDOMEN: Soft. Liver and spleen not palpable. No tenderness. No mass palpable. PSYCHIATRY: Can carry on a conversation. Mood and affect somewhat anxious appearing NEUROLOGICAL: Has some difficulty with sensation of the left hand and fingers. MUSCULOSKELETAL: Tenderness to posterior left back/flank just below left scapula INVESTIGATIONS: MRI cervical spine: This bulging C3 through 4 and C 6 through 7 this appears greatest at C5-6 without stenosis, mild to moderate foraminal narrowing. ASSESSMENT: -Left-sided chest pain likely pleurisy/viral pneumonia given his presentation and associated upper respiratory tract nasal stuffiness, likely viral in nature. Doubt cardiac cause. -Cervical radiculopathy causing numbness and tingling to the left upper extremity. 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 Continue using Antivert for symptoms of dizziness. Discharge planning in the next 24-48 hours. Plan of care discussed with the patient the bedside he is in agreement. We'll follow closely. PATIENT ESCORT statement: Patient was seen and examined by nurse practitioner Gwendolyn Young and all elements of the case discussed with attending Dr. De Oliveira
[2017-02-18] MEDS: GABAPENTIN 100 MG CAP PO SCH (20:24)
[2017-02-18] MEDS: TAMSULOSIN 0.4 MG CAP.ER.24H PO SCH (20:24)
[2017-02-18 20:48] VITALS: RESP 16
--- NOTE | 2017-02-18 22:58 | EEG ---
ELECTROENCEPHALOGRAM REPORT DATE OF SERVICE: 02/17/2017. REASON FOR TESTING: Dizziness. PROCEDURE: This EEG was performed using a 21 channel digital electroencephalograph, following international 10-20 system. DESCRIPTION OF THE RECORDING: From the beginning of the tracing, with patient's eyes closed, the background rhythm was mostly consisting of 9 Hz alpha frequency in the posterior occipital leads. No obvious asymmetry is seen. Photic stimulation was performed with a minimal driving response seen. No pathological waves were elicited. The patient does reach stage II of sleep during the tracing and occasional sleep spindles and K complexes are seen. Hyperventilation was not performed. No epileptiform discharges were seen. His EKG lead showed a regular rate and rhythm. INTERPRETATION: This asleep and awake EEG can be considered within normal limits. There is no asymmetry seen. No epileptiform discharges were noticed. The absence of epileptiform discharges does not rule out the diagnosis of epilepsy, therefore clinical correlation is recommended. MMROSALIAL / IJN: [id number] /
[2017-02-19] MEDS: IPRATROPIUM-ALBUTEROL 3 ML NEB INHALATION SCH ×3 (08:22→17:40)
[2017-02-19] MEDS: ASPIRIN 81 MG CHEW PO SCH (08:26)
[2017-02-19] MEDS: ATORVASTATIN 40 MG TAB PO SCH (08:26)
[2017-02-19] MEDS: ACETAMINOPHEN TAB 500 MG TAB PO PRN ×2 (08:27→15:30)
[2017-02-19] MEDS: GABAPENTIN 300 MG CAP PO SCH (08:27)
[2017-02-19] MEDS: MECLIZINE 12.5 MG TAB PO SCH ×3 (08:27→17:22)
[2017-02-19] MEDS: ENOXAPARIN 40 MG/0.4 ML SYRINGE SQ SCH (08:27)
[2017-02-19] MEDS: SODIUM CHLORIDE 0.9% 1,000 ML IV SCH (08:30)
[2017-02-19 15:46] VITALS: BP 148/70; PULSE 68; TEMP 97.2
--- NOTE | 2017-02-19 17:24 | MR ---
EXAMINATION TYPE: MR thoracic spine wo/w con DATE OF EXAM: 02/19/2017 5:04 PM COMPARISON: NONE HISTORY: Numbness and Unsteady Baker Multiplanar MultiSpin echo imaging of the thoracic spine was performed. Pre and postcontrast enhance d images are submitted. Degenerative disc disease with disc bulging and spondylosis at C4-5 and C5-6. At C4-5 there may be mi ld central stenosis. Thoracic curvature seen convex to the right. Disc spaces: Mild disc desiccation at T4-5, T5-6, T7-8 and T8-9. Mild disc bulging at each of these l evels. No evidence for letty disc herniation protrusion or central stenosis. Mild scattered ventral s pondylosis. Spinal canal: No evidence for canal stenosis. No intrinsic or extrinsic lesion. Thoracic spinal cord: Thoracic spinal cord is of normal caliber and signal. Paraspinal soft tissues: No evidence for paraspinal mass. No destructive lesions seen. Vertebral segments: No evidence for fracture or bony lesion. IMPRESSION: 1. Degenerative disc disease with mild disc bulging thoracic spine as discussed. No evidence for cent ral stenosis or enhancing lesion. 2. Degenerative disc disease with disc bulging and spondylosis cervical spine as noted above.
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
--- NOTE | 2017-02-19 17:51 | P.DS ---
<Gwendolyn Young - Last Filed: 02/19/17 17:33> Providers Date of admission: 02/14/17 19:26 Expected date of discharge: 02/19/17 Attending physician: Ramses De Oliveira Consults: 02/14/17 19:24 Consult Physician Routine Consulting Provider: Sho Augustine Consult Reason/Comments: cp Do you want consulting provider notified?: Yes Consult Physician Routine Consulting Provider: Blu Oden Consult Reason/Comments: cva Do you want consulting provider notified?: Yes 02/18/17 17:58 Consult Physician Routine Consulting Provider: Jasen Blackburn Consult Reason/Comments: cervical radiculopathy, Bulging cervical discs Do you want consulting provider notified?: Yes Primary care physician: Jayy Harrell [facility] Course: FINAL DIAGNOSES: -Left-sided chest pain likely pleurisy/viral pneumonia given his presentation and associated upper respiratory tract nasal stuffiness, likely viral in nature. Doubt cardiac cause. -Cervical spine osteoarthritis with herniated disc causing radiculopathy radiculopathy . -Acute vestibulitis likely viral responding well to Antivert. 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 Patient admitted and cardiology neurology and orthopedics consulted. Cardiology believed this was atypical chest discomfort pleuritic in nature, nothing further to be done. Neurology felt patient did not have a CVA MRI was negative for any acute process EEG completed and was negative. Has reproducible vision changes and vertigo-like symptoms for which she receives Antivert. Noted to have ataxia with veering to the right on ambulation this was reproducible no distinct pattern or frequency has had a couple of failed back surgeries and is followed by Dr. Hays, Dr. Blackburn of orthopedics consulted and ordered an MRI of the thoracic spine will evaluate and MRI showed no indication for surgical intervention recommend following with medicine and neurology and to continue to follow with Dr. Hays and pain management. Patient tolerating his diet, moving his bowels, ambulatory in the room and hallway, would like very much to be discharged, patient condition is stable cleared by all consultants and as such stable for discharge. Please see detailed discharge instructions for follow-up appointments and specific medication instructions. PHYSICAL EXAM: CARDIOVASCULAR: first and second sound noted no edema RESPIRATORY: respiratory effort normal lung sounds diminished bilaterally MUSKULOSKELETAL: Upper extremities buyers' agent and strength equal bilaterally lower extremities straight leg raises able to be performed without difficulty or pain NEUROLOGIC: Alert and oriented 3, some dizziness remains when changing positions, Patient was seen and examined by nurse practitioner Gwendolyn Young in all elements of the case discussed with attending Dr. De Oliveira DISPOSITION: discharge home to the care of his Patient Condition at Discharge: Fair Plan - Discharge Summary New Discharge Prescriptions: New Atorvastatin [Lipitor] 40 mg PO DAILY #30 tab Ipratropium-Albuterol Nebulize [Duoneb 0.5 mg-3 mg/3 ml Soln] 3 ml INHALATION RT-QID #120 neb Meclizine [Antivert] 12.5 mg PO QID #8 tab Continue Gabapentin [Neurontin] 300 mg PO DAILY Gabapentin [Neurontin] 200 mg PO HS Nitroglycerin Sl Tabs [Nitrostat] 0.4 mg SUBLINGUAL Q5M PRN #0 tab PRN Reason: Chest Pain Tamsulosin [Flomax] 0.4 mg PO HS Aspirin [Adult Low Dose Aspirin EC] 81 mg PO DAILY Prevagen 1 cap PO DAILY PRN PRN Reason: MEMORY LOSS Discharge Medication List Gabapentin [Neurontin] 300 mg PO DAILY 06/17/14 [History] Gabapentin [Neurontin] 200 mg PO HS 09/16/14 [History] Nitroglycerin Sl Tabs [Nitrostat] 0.4 mg SUBLINGUAL Q5M PRN #0 tab 09/30/14 [Rx] Tamsulosin [Flomax] 0.4 mg PO HS 09/17/16 [History] Aspirin [Adult Low Dose Aspirin EC] 81 mg PO DAILY 02/14/17 [History] Prevagen 1 cap PO DAILY PRN 02/14/17 [History] Atorvastatin [Lipitor] 40 mg PO DAILY #30 tab 02/19/17 [Rx] Ipratropium-Albuterol Nebulize [Duoneb 0.5 mg-3 mg/3 ml Soln] 3 ml INHALATION RT -QID #120 neb 02/19/17 [Rx] Meclizine [Antivert] 12.5 mg PO QID #8 tab 02/19/17 [Rx] Follow up Appointment(s)/Referral(s): Ramandeep Lopez MD [STAFF PHYSICIAN] - 1 Week (OFFICE STATES WILL CALL WITH APPOINTMENT TIME. PLEASE CALL IN 24 HOURS IF YOU HAVE NOT HEARD FROM THEM) Jasen Blackburn DO [Doctor of Osteopathic Medicine] - 02/25/17 3:00 pm [facility], [NON-STAFF] - Blu Oden MD [STAFF PHYSICIAN] - 2 Weeks (OFFICE STATES WILL CALL WITH APPOINTMENT TIME. PLEASE CALL IN 24 HOURS IF YOU HAVE NOT HEARD FROM THEM) Jayy Schmidt MD [Primary Care Provider] - 02/21/17 1:00 pm Sukhdev Hays DO [Doctor of Osteopathic Medicine] - 03/06/17 9:50 am Patient Instructions/Handouts: Transient Ischemic Attack (DC) Activity/Diet/Wound Care/Special Instructions: [facility] - [phone] Discharge Disposition: HOME WITH HOME HEALTH SERVICES <Alvino,Ramses - Last Filed: 02/20/17 13:36> Hospital Course: Attending note. Date of service-02/19/2017 This patient was seen and examined by me . Discussed the patient with my nurse practitioner Ms. Young. Doing well. Dizziness much improved. On examination: Lungs-decreased breath sounds, psych-able answer simple questions. Mild weakness of the upper extremity strength 4 x [address] Blackburn Investigations: Assessment and plan: Acute left pleurisy likely viral improving. Acute vasculitis likely while responding well to Antivert. Acute cervical spine osteoarthritis with disc herniation causing some radiculopathy. Follow-up with Dr. Blackburn as an outpatient. Other treatment plan discussed with the patient. Medications listed out.
== END 2017-02-19 18:09 | disposition home health service (06) | DRG 190 ==
LOC: EC 15:50 → 6SEL 19:26
PROVIDERS: ADMIT Hospitalist; ATTEND Hospitalist
DX: J44.0 Chronic obstructive pulmonary disease with (acute) lower respiratory infection (principal); J12.9 Viral pneumonia, unspecified; G31.01 Pick's disease; F02.80 Dementia in other diseases classified elsewhere, unspecified severity, without behavioral disturbance, psychotic disturbance, mood disturbance, and anxiety; J44.1 Chronic obstructive pulmonary disease with (acute) exacerbation; K21.9 Gastro-esophageal reflux disease without esophagitis; I10 Essential (primary) hypertension; R09.1 Pleurisy; H83.09 Labyrinthitis, unspecified ear; K58.9 Irritable bowel syndrome, unspecified; G43.909 Migraine, unspecified, not intractable, without status migrainosus; M50.121 Cervical disc disorder at C4-C5 level with radiculopathy; M47.22 Other spondylosis with radiculopathy, cervical region; M19.91 Primary osteoarthritis, unspecified site; Z79.82 Long term (current) use of aspirin; Z79.899 Other long term (current) drug therapy; Z87.11 Personal history of peptic ulcer disease; Z90.49 Acquired absence of other specified parts of digestive tract; Z98.49 Cataract extraction status, unspecified eye; Z87.891 Personal history of nicotine dependence; Z86.73 Personal history of transient ischemic attack (TIA), and cerebral infarction without residual deficits; Z86.14 Personal history of Methicillin resistant Staphylococcus aureus infection; Z87.442 Personal history of urinary calculi; Z98.1 Arthrodesis status; Z91.041 Radiographic dye allergy status; Z82.5 Family history of asthma and other chronic lower respiratory diseases
CPT/HCPCS: 36415; 70450; 70498; 70553; 71020; 71275; 72141; 72157; 80053; 80061; 82550; 82553; 83090; 83690; 83735; 83880; 84484; 85025; 85379; 85610; 85730; 93306; 93880; 94640; 94760; 95819; 99291

== ENCOUNTER 2018-06-02 09:37 | Emergency (ER) | payer MEDICARE, OTHER ==
--- NOTE | 2018-06-02 10:59 | XR ---
EXAMINATION TYPE: XR chest 2V DATE OF EXAM: 06/02/2018 COMPARISON: 06/04/2017 HISTORY: Chest pain and cough TECHNIQUE: Frontal and lateral views of the chest are obtained. FINDINGS: There is no focal air space opacity, pleural effusion, or pneumothorax seen. Eventration of the right hemidiaphragm is incidentally noted. The cardiac silhouette size is again mildly enlarge d. The osseous structures are intact. IMPRESSION: No acute cardiopulmonary process.
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
[2018-06-02] MEDS ORDERED: diphenhydrAMINE 50 MG/ML 1 ML VIAL IVP STA (13:40)
[2018-06-02] MEDS ORDERED: methylPREDNISolone SOD SUCCI 125 MG/2 ML VIAL IV STA (13:40)
[2018-06-02] MEDS ORDERED: FAMOTIDINE 20 MG/2 ML VIAL IV STA (13:40)
[2018-06-02] MEDS ORDERED: MORPHINE SULFATE 4 MG/ML SYRINGE IVP STA (15:16)
--- NOTE | 2018-06-02 15:26 | CT ---
EXAMINATION TYPE: CT angio chest DATE OF EXAM: 06/02/2018 COMPARISON: 02/14/2017 HISTORY: 72-year-old male Chest pain, possible heart attack TECHNIQUE: Contiguous axial scanning of the chest performed with IV Contrast, patient injected with 1 00 mL of Isovue 370. Coronal/sagittal MIP reconstructions performed. CT DLP: 628 mGycm Automated exposure control for dose reduction was used. FINDINGS: Heart normal size with trace pericardial effusion. No flattening of the interventricular septum or re flux of contrast into the hepatic veins. Aorta normal caliber with conventional arch vessel branching anatomy and mild atherosclerotic arch ca lcifications. Satisfactory opacification of the pulmonary arterial system without evidence for pulmonary embolus. Borderline sized hilar lymph nodes are unchanged to smaller. No thoracic lymphadenopathy by CT size c riteria. Question prior Jose fundoplication with herniated wrap. Mild subpleural reticular densities suggesting interstitial scarring. Mild centrilobular emphysema is present. A 4 mm lingular pulmonary nodule, axial image 77 is smaller from 02/14/2017 compatible with a benign et iology. Abdomen reported separately. Bones: No osseous destructive process. IMPRESSION: 1. NO EVIDENCE FOR PULMONARY EMBOLUS. 2. COPD WITH MILD EMPHYSEMA. NO ACUTE PULMONARY PROCESS. 3. CORRELATE WITH PATIENT'S PRIOR SURGICAL HISTORY. SUSPECT THAT THERE IS A PRIOR JOSE FUNDOPLICATI ON BUT THE WRAP HAS HERNIATED NOW. OUTPATIENT SURGICAL REFERRAL RECOMMENDED.
--- NOTE | 2018-06-02 15:37 | CT ---
EXAMINATION TYPE: CT abdomen pelvis w con DATE OF EXAM: 06/02/2018 COMPARISON: 10/22/2016 HISTORY: Abdominal pain CT DLP: 493.5 mGycm Automated exposure control for dose reduction was used. TECHNIQUE: Helical acquisition of images was performed from the lung bases through the pelvis. CONTRAST: Performed without Oral Contrast and with IV Contrast, patient injected with 100-used in CTA chest mL of Isovue 370. FINDINGS: LUNG BASES: No significant abnormality is appreciated. Trace pericardial effusion is incidentally not ed. LIVER/GB: Hepatic parenchyma is diffusely hypoattenuated in comparison to that of the spleen, most co mmonly seen in hepatic steatosis. This finding limits evaluation for hepatic masses. No gross evidenc e of hepatic mass is seen. No intrahepatic biliary ductal dilatation. Gallbladder appears surgically absent. PANCREAS: No significant abnormality is seen. SPLEEN: No significant abnormality is seen. No splenomegaly as the spleen measures 9.7 cm in cranioca udal dimension. ADRENALS: No significant abnormality is seen. KIDNEYS: There is gross dilatation of the urinary bladder with mild bilateral hydroureteronephrosis l ikely secondary to the vesicular ureteral reflux. There is diffuse enlargement and heterogeneity of t he prostate gland impresses upon the urinary bladder, therefore findings could relate to urinary blad efren outlet obstruction. Additionally on the single image only within the posterior urinary bladder wa ll (axial image 69 of series 501) and also appreciated on the sagittal images on 62. Right cortical renal cyst measures 1.8 cm. FREE AIR: No free air is visualized. ADENOPATHY: No greater than 1 cm short axis lymph nodes seen within the abdomen or pelvis. OSSEOUS STRUCTURES: Postoperative changes are seen of the lower lumbar spine. Overlying the postsurg ical site there is soft tissue density such as on image 46 of series 501 and paraspinal muscular atro phy. Osseous structures appear intact. BOWEL: There is circumferential wrapping of the gastroesophageal junction from Jm fundoplication without proximal esophageal dilatation. There is a large degree of retained stool throughout the red undant colon. Ileocolic anastomotic site is noted with few loops of small bowel demonstrating small b owel feces sign and air-filled loops of mildly prominent small bowel with a few loops of dilated smal l bowel in the left mid abdomen. Findings suggest small bowel ileus. OTHER: Moderate atherosclerosis is seen in the abdominal aorta and its branches. Curvilinear calcific ations within the gluteal musculature extending to the left iliac crest are unchanged from the prior and likely sequela of prior trauma. IMPRESSION: 1. MARKED URINARY BLADDER DISTENTION WITH BILATERAL MILD HYDROURETERONEPHROSIS. COMBINATION OF FINDIN GS SUGGEST URETEROVESICULAR REFLUX, POSSIBLY FROM URINARY BLADDER OUTLET OBSTRUCTION GIVEN THE ENLARG ED AND HETEROGENOUS PROSTATE GLAND. 2. DEPENDENT CRESCENTIC FILLING DEFECT WITHIN THE POSTERIOR URINARY BLADDER THAT COULD RELATE TO FOCA L WALL THICKENING, BLOOD PRODUCTS OR MASS. CT UROGRAM OR DIRECT VISUALIZATION COULD FURTHER ASSESS TH IS FINDING. 3. FINDINGS SUGGESTIVE OF SMALL BOWEL ILEUS AND MARKED AMOUNT OF COLONIC RETAINED FECAL DEBRIS. 4. HEPATIC STEATOSIS. 5. POSTSURGICAL CHANGE OF THE LUMBAR SPINE WITH OVERLYING SOFT TISSUE DENSITY THAT COULD REPRESENT EP IDURAL FIBROSIS. MR WITH CONTRAST COULD FURTHER ASSESS THIS FINDING.
[2018-06-02 17:38] VITALS: BP 149/99; TEMP 98.6
[2018-06-02 18:01] VITALS: PULSE 70; RESP 17
== END 2018-06-02 18:01 | disposition home or self-care (01) ==
LOC: EC 09:37
DX: K21.9 Gastro-esophageal reflux disease without esophagitis (principal); K44.9 Diaphragmatic hernia without obstruction or gangrene; J44.9 Chronic obstructive pulmonary disease, unspecified; I69.911 Memory deficit following unspecified cerebrovascular disease; Z91.041 Radiographic dye allergy status; Z87.19 Personal history of other diseases of the digestive system; Z90.49 Acquired absence of other specified parts of digestive tract; Z95.818 Presence of other cardiac implants and grafts; Z80.0 Family history of malignant neoplasm of digestive organs
CPT/HCPCS: 93005; 71046; 71275; 74177; 99285; 96374; 96375 ×3; J2270; J1200; J2930; Q9967

== ENCOUNTER → 2018-06-26 | Outpatient (CLI) | payer MEDICARE, OTHER ==
--- NOTE | 2018-06-26 12:56 | US ---
EXAMINATION TYPE: US kidneys/renal and bladder DATE OF EXAM: 06/26/2018 COMPARISON: NONE CLINICAL HISTORY: N13.30 HX HYDRONEPHROSIS; Followup from recent CT. Patient stated has difficulty em ptying bladder. EXAM MEASUREMENTS: Right Kidney: 10.4 x 6.4 x 4.7 cm Left Kidney: 10.6 x 4.7 x 5.7 cm Post Void Residual Volume: 196.1mL Right Kidney: simple lateral cortical cyst = 1.8 x 1.7 x 1.6cm Left Kidney: possible calcified vessel reis as noted mid pole hyperechoic vessel resi. Bladder: well distended Bilateral Jets seen: yes Normal Post Void Residual: no, as volume is greater than 50.0ml. There is no evidence for hydronephrosis at this point in time. No nephrolithiasis is seen. The urina ry bladder is anechoic. Bilateral ureteral jets are seen. IMPRESSION: 1. Interval resolution of the previously seen mild bilateral hydroureter ureteral nephrosis. 2. Simple appearing 1.8 cm right renal cyst. 3. Abnormal post void urinary bladder residual of 196.1.
== END | disposition home or self-care (01) ==
LOC: RADUSWWP 10:41
PROVIDERS: ATTEND Urology
DX: N13.30 Unspecified hydronephrosis (principal)
CPT/HCPCS: 76770

== ENCOUNTER → 2018-07-03 | Outpatient (CLI) | payer MEDICARE, OTHER ==
--- NOTE | 2018-07-03 12:23 | FL ---
EXAMINATION TYPE: FL barium swallow DATE OF EXAM: 07/03/2018 CLINICAL HISTORY: Dysphagia TECHNIQUE: A double contrast esophagram is performed utilizing air and barium. Fluoroscopy time: 42 seconds. Images: 15 FINDINGS: Esophagus dilates to normal caliber has normal contour to the gastroesophageal junction. Ga stroesophageal junction opens to normal caliber. Hiatal hernia is not identified. No stenosis is evid ent. There is complete stripping of the esophageal bolus in the horizontal drinking position. Proximal stomach within the [id number] appears unremarkable. IMPRESSION: 1. Normal esophagram
== END | disposition home or self-care (01) ==
LOC: RADFLWHC 10:02
PROVIDERS: ATTEND Surgery Plastic and Reconstructive Surgery
DX: R13.10 Dysphagia, unspecified (principal)
CPT/HCPCS: 74220

== ENCOUNTER 2018-07-29 10:37 | Day surgery (SDC) | payer MEDICARE, OTHER ==
[2018-07-27 10:14] VITALS: BMI 27.3
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
[~2018-07-29 10:37] MED LIST changes: -ACETAMINOPHEN IV (For NPO) 1,000 MG in EMPTY BAG 1 BAG IVPB ONE; -DEXAMETHASONE SOD PHOSPHATE 10 MG/ML 1 ML VIAL IV ONE; -HEPARIN SODIUM,PORCINE 5,000 UNIT/ML 1 ML VIAL SQ ONE; -HYDROmorphone 1 MG/ML 1 ML SYRINGE IVP PRN; +LACTATED RINGERS 1,000 ML IV SCH; -MIDAZOLAM 2 MG/2 ML VIAL IV PRN; -ONDANSETRON 4 MG/2 ML VIAL IVP ONE; -SCOPOLAMINE 1.5MG/72HR PATCH TRANSDERM ONE; -ceFAZolin 2 GM in SODIUM CHLORIDE 0.9% 100 ML IVPB ONE
[2018-07-29 11:22] VITALS: RESP 16; TEMP 98.2
[2018-07-29] MEDS ORDERED: KETAMINE 10 MG/ML 20 ML VIAL ONE (11:35)
[2018-07-29] MEDS ORDERED: MIDAZOLAM 2 MG/2 ML VIAL ONE (11:35)
[2018-07-29] MEDS ORDERED: PROPOFOL 10 MG/ML 20 ML VIAL IV ONE ×2 (11:35→12:05)
[2018-07-29] MEDS ORDERED: LIDOCAINE 1% INJ 10MG/ML (20 ML MDV) ONE (12:05)
--- NOTE | 2018-07-29 12:26 | P.PCN ---
Date of Procedure: 07/29/18 Description of Procedure: PREOPERATIVE DIAGNOSIS: Dysphagia. Gastroesophageal reflux disease History of Jm fundoplication Upper esophageal sphincter hypertension POSTOPERATIVE DIAGNOSIS: Dysphagia. Gastroesophageal reflux disease History of Jm fundoplication Upper esophageal sphincter hypertension Cuellar's esophagus OPERATION: Esophagogastroduodenoscopy with rigid dilator over the guidewire 57 Fr. Esophagogastroduodenoscopy with cold forceps biopsy distal esophagus SURGEON: Melania Murillo MD ANESTHESIA: MAC. INDICATIONS: The patient is a 72-year-old male who presents with a history of dysphagia. He had a manometry demonstrating upper esophageal sphincter disorder. He reports trouble swallowing her pills. Benefits and risks of the procedure were described. Informed consent was obtained. DESCRIPTION: The patient was brought into the endoscopy suite and laid in the left lateral decubitus position. After a timeout was confirmed, the procedure was initiated. An Olympus gastroscope was passed and the stomach was entered. Mild gastritis was identified. The scope was advanced to the duodenum which was unremarkable. Retroflexion the scope confirmed a Hill grade 3 lower esophageal valve. Next using an Prydeinig rigid dilator, a guidewire was placed through the gastroscope. Next the scope was withdrawn. A 57-Burkinan rigid Prydeinig dilator was passed carefully along the posterior oropharynx to 50 cm and left in place for 2 minutes stretch. The dilator was withdrawn including the guidewire. The scope was reentered along the posterior oropharynx with no findings of full-thickness tear of the upper esophageal sphincter. At the distal esophagus , Cuellar's was identified and was cold forceps biopsy obtained. No full-thickness injury was encountered. The GI tract was desufflated. The patient tolerated the procedure well. FINDINGS: Squamocolumnar junction unremarkable at 40 cm. Stricture of the upper esophagus, consistent with hypertensive upper esophageal sphincter. Prydeinig rigid dilator 57-Burkinan completed. Cuellar's esophagus, 3 cm 2 columns identified and biopsied Diffuse gastritis. Hill grade 3 lower esophageal valve. Recurrent hiatal hernia, 4 cm. LA grade D esophagitis. RECOMMENDATIONS: Cuellar's esophagus, repeat upper endoscopy 3 years, 2021 Plan - Discharge Summary Discharge Rx Participant: No New Discharge Prescriptions: No Action Nitroglycerin Sl Tabs [Nitrostat] 0.4 mg SUBLINGUAL Q5M PRN #0 tab PRN Reason: Chest Pain Aspirin [Adult Low Dose Aspirin EC] 81 mg PO DAILY PRN PRN Reason: Chest Pain Albuterol Nebulized [Ventolin Nebulized] 2.5 mg INHALATION RT-Q4H PRN PRN Reason: Shortness Of Breath Tamsulosin [Flomax] 0.4 mg PO DAILY Omeprazole 40 mg PO DAILY LORazepam [Ativan] 1 mg PO DAILY PRN PRN Reason: SPASMS-COUGHING Finasteride [Proscar] 5 mg PO DAILY Acetaminophen Tab [Tylenol Tab] 650 mg PO Q4H PRN PRN Reason: Pain Discharge Medication List Nitroglycerin Sl Tabs [Nitrostat] 0.4 mg SUBLINGUAL Q5M PRN #0 tab 09/30/14 [Rx] Aspirin [Adult Low Dose Aspirin EC] 81 mg PO DAILY PRN 02/14/17 [History] Albuterol Nebulized [Ventolin Nebulized] 2.5 mg INHALATION RT-Q4H PRN 05/29/17 [ History] Acetaminophen Tab [Tylenol Tab] 650 mg PO Q4H PRN 07/27/18 [History] Finasteride [Proscar] 5 mg PO DAILY 07/27/18 [History] LORazepam [Ativan] 1 mg PO DAILY PRN 07/27/18 [History] Omeprazole 40 mg PO DAILY 07/27/18 [History] Tamsulosin [Flomax] 0.4 mg PO DAILY 07/27/18 [History] Follow up Appointment(s)/Referral(s): Melania Murillo MD [STAFF PHYSICIAN] - 09/01/18 Patient Instructions/Handouts: Cuellar Esophagus (DC), Esophageal Stricture (DC ), Esophageal Stricture (IP) Activity/Diet/Wound Care/Special Instructions: Liquid diet today Discharge Disposition: HOME SELF-CARE
[2018-07-29] MEDS ORDERED: LACTATED RINGERS 1,000 ML IV ONE (12:50)
[2018-07-29 12:54] VITALS: BP 129/86; PULSE 66
== END 2018-07-29 13:06 | disposition home or self-care (01) ==
LOC: ORWHC2ENDO 10:37
PROVIDERS: ATTEND Surgery Plastic and Reconstructive Surgery
DX: K22.2 Esophageal obstruction (principal); K22.70 Barrett's esophagus without dysplasia; K29.70 Gastritis, unspecified, without bleeding; K21.0 Gastro-esophageal reflux disease with esophagitis; K44.9 Diaphragmatic hernia without obstruction or gangrene; K22.4 Dyskinesia of esophagus; J43.9 Emphysema, unspecified; Z87.891 Personal history of nicotine dependence; M19.90 Unspecified osteoarthritis, unspecified site; N40.0 Benign prostatic hyperplasia without lower urinary tract symptoms; Z86.73 Personal history of transient ischemic attack (TIA), and cerebral infarction without residual deficits; Z90.49 Acquired absence of other specified parts of digestive tract; Z80.1 Family history of malignant neoplasm of trachea, bronchus and lung; Z80.0 Family history of malignant neoplasm of digestive organs; Z79.899 Other long term (current) drug therapy; Z91.041 Radiographic dye allergy status
CPT/HCPCS: 88305; 43239; 43248; J2250; J2001; J2704; 43249

== ENCOUNTER 2018-09-09 17:57 | Emergency (ER) | payer MEDICARE, OTHER ==
[2018-09-09 18:23] VITALS: BP 135/83; PULSE 70; RESP 16; TEMP 97.8
[2018-09-09] MEDS ORDERED: MORPHINE SULFATE 2 MG/ML SYRINGE IM STA (18:47)
[2018-09-09] MEDS ORDERED: DIAZEPAM 5 MG TAB PO STA (18:47)
--- NOTE | 2018-09-09 19:26 | CT ---
EXAMINATION TYPE: CT lumbar spine wo con DATE OF EXAM: 09/09/2018 7:01 PM COMPARISON: 06/02/2018 HISTORY: Low back pain. CT DLP: 1035 mGycm Automated exposure control for dose reduction was used. Unenhanced CT of the lumbar spine was performed. Bone and soft tissue window settings are submitted as well as coronal and sagittal reconstructions. There are rods and screws fusing posteriorly the lumbar spine at L3-4. There is disc prosthesis at L3 -4 L4-5. There is previous posterior hardware at L5-S1. The vertebra have fairly normal alignment. There is no compression fracture. There is disc space narr owing at L1-2. There is disc space narrowing at L4-5 and L5-S1. I see no focal bone destruction. Ther e is no lumbar paraspinal mass. Sacroiliac joints appear intact. There is mild lateral posterior hopi ents to 3 disc herniation. I see no evidence of spinal stenosis. There is multilevel laminectomy defe ct. Sacroiliac joints are intact. There is no subluxation deformity. IMPRESSION: Multilevel spondylotic changes. Multilevel surgery. No fracture. Small posterior left side L2-3 disc herniation. Exam limited by metal artifact. No spinal stenosis. No adverse change compared to old [place] m.
[2018-09-09] MEDS ORDERED: ACET/COD 300 MG/30 MG STARTER PACK 6 TAB BTL PO STA (19:41)
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
== END 2018-09-09 19:57 | disposition home or self-care (01) ==
LOC: EC 17:57
DX: G89.29 Other chronic pain (principal); M51.26 Other intervertebral disc displacement, lumbar region; M48.061 Spinal stenosis, lumbar region without neurogenic claudication; J44.9 Chronic obstructive pulmonary disease, unspecified; Z86.73 Personal history of transient ischemic attack (TIA), and cerebral infarction without residual deficits; N42.9 Disorder of prostate, unspecified; Z86.14 Personal history of Methicillin resistant Staphylococcus aureus infection; Z98.890 Other specified postprocedural states; Z95.818 Presence of other cardiac implants and grafts; Z79.899 Other long term (current) drug therapy; Z91.041 Radiographic dye allergy status
CPT/HCPCS: 72131; 99284; 96372; J2270

== ENCOUNTER → 2018-10-08 | Outpatient (CLI) | payer MEDICARE, OTHER ==
[2018-10-08 14:28] LABS: HCT 50.4 % (39.0-53.0); HGB 16.7 gm/dL (13.0-17.5); MCH 31.7 pg (25.0-35.0); MCHC 33.2 g/dL (31.0-37.0); MCV 95.4 fL (80.0-100.0); Mean Platelet Volume 7.2; Platelet Count 200 k/uL (150-450); RBC 5.29 m/uL (4.30-5.90); RDW 13.1 % (11.5-15.5); WBC 10.5 k/uL (3.8-10.6)
--- NOTE | 2018-10-08 16:56 | XR ---
EXAMINATION TYPE: XR chest 2V DATE OF EXAM: 10/08/2018 COMPARISON: 06/02/2018 HISTORY: 72-year-old male previous abnormal exam, preoperative for hernia repair. TECHNIQUE: Frontal and lateral views FINDINGS: The cardiomediastinal silhouette, aorta, and pulmonary vasculature are within normal limits. Hyperinf lation. Mild interstitial prominence is unchanged. Otherwise, lungs and pleural spaces are clear. IMPRESSION: Suspect underlying COPD. Otherwise, no acute cardiopulmonary process.
[2018-10-08 20:13] LABS: Albumin 4.8 g/dL (3.80-4.90); Albumin/Globulin Ratio 2.82 (1.60-3.17); Calcium 10.2 mg/dL (8.7-10.3); Globulin 1.7 g/dL (1.6-3.3); Potassium 4.4 mmol/L (3.5-5.5); Total Bilirubin 0.9 mg/dL (0.3-1.2); Total Protein 6.5 g/dL (6.2-8.2)
== END | disposition home or self-care (01) ==
LOC: LABWHC1 13:29
PROVIDERS: ATTEND Surgery Plastic and Reconstructive Surgery
DX: R91.8 Other nonspecific abnormal finding of lung field (principal); K44.9 Diaphragmatic hernia without obstruction or gangrene
CPT/HCPCS: 36415; 71046; 80053; 85027

== ENCOUNTER 2018-10-15 10:26 | Inpatient (IN) | payer MEDICARE, OTHER ==
[2018-10-07 14:54] VITALS: BMI 29.3
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
[~2018-10-15 10:26] MED LIST changes: +HEPARIN SODIUM,PORCINE 5,000 UNIT/ML 1 ML VIAL SQ ONE; +ONDANSETRON 4 MG/2 ML VIAL IVP ONE; +PANTOPRAZOLE 40 MG/10 ML VIAL IV STA; +ceFAZolin IN SWFI 2 GM/20 ML SYRINGE IVP ONE
[2018-10-15 11:23] LABS: Glucose,Whole Blood 81 mg/dL (75-99)
[2018-10-15] MEDS ORDERED: MIDAZOLAM 2 MG/2 ML VIAL ONE (11:24)
[2018-10-15] MEDS ORDERED: NEOSTIGMINE 1 MG/ML 10 ML VIAL ONE (11:24)
[2018-10-15] MEDS ORDERED: LIDOCAINE 1% INJ 10MG/ML (20 ML MDV) ONE (11:24)
[2018-10-15] MEDS ORDERED: SUCCINYLCHOLINE CHLORIDE 100 MG/5 ML SYR IV ONE (11:24)
[2018-10-15] MEDS ORDERED: ROCURONIUM BROMIDE 10 MG/ML 10 ML VIAL IV ONE (11:24)
[2018-10-15] MEDS ORDERED: fentaNYL (PF) 50 MCG/ML 2 ML AMP ONE (11:24)
[2018-10-15] MEDS ORDERED: PROPOFOL 10 MG/ML 20 ML VIAL IV ONE (11:24)
[2018-10-15] MEDS ORDERED: DEXAMETHASONE SOD PHOS (MDV) 100 MG/10 ML VIAL ONE (11:24)
[2018-10-15] MEDS ORDERED: GLYCOPYRROLATE 0.2 MG/ML 2 ML VIAL ONE (11:24)
[2018-10-15] MEDS ORDERED: BUPIVACAIN-EPI 0.5%-1:200,000 30 ML VIAL SQ ONE (12:14)
[2018-10-15] MEDS ORDERED: LACTATED RINGERS 1,000 ML IV ONE (13:46)
[2018-10-15] MEDS ORDERED: NITROGLYCERIN SL TABS 0.4 MG TAB SUBLINGUAL PRN (15:31)
[2018-10-15] MEDS ORDERED: ONDANSETRON 4 MG/2 ML VIAL IVP PRN (15:33)
[2018-10-15] MEDS ORDERED: diphenhydrAMINE 50 MG/ML 1 ML VIAL IVP PRN (15:33)
[2018-10-15] MEDS ORDERED: NALOXONE 0.4 MG/ML 1 ML VIAL IV PRN (15:33)
--- NOTE | 2018-10-15 15:39 | P.OP ---
Date of Procedure: 10/15/18 Operative Findings: 1. Recurrent midline incarcerated paraesophageal hiatal hernia 4 x 4 centimeters, type III 2. Extensive dissection into the mediastinum for release of hernia sac for complete reduction of stomach into abdomen 3. Intraesophageal length over 1.5 cm obtained 4. Cuellar's esophagus 1 cm short segment LA grade D erosive esophagitis 5. Negative intraoperative leak 6. Esophageal dilation for hypertensive upper esophageal sphincter using 56- Wallisian bougie 7. Estimated blood loss 20 mL Description of Procedure: SURGEON: GELACIO FIORE MD PREOPERATIVE DIAGNOSES: 1. Gastroesophageal reflux disease. 2. Paraesophageal hiatal hernia, midline, recurrent 3. History of previous Jm fundoplasty 4. Epigastric abdominal pain 5. Erosive esophagitis 6. Dysphagia 7. Hypertensive upper esophageal sphincter 8. Ineffective esophageal motility 9. Anxiety disorder 10. Bipolar disorder 11. Migraine headaches 12. Hypertensive heart disease POSTOPERATIVE DIAGNOSES: 1. Gastroesophageal reflux disease. 2. Paraesophageal hiatal hernia, midline, recurrent, incarcerated 6 x 8 cm 3. History of previous Jm fundoplasty 4. Epigastric abdominal pain 5. Erosive esophagitis 6. Dysphagia 7. Hypertensive upper esophageal sphincter 8. Ineffective esophageal motility 9. Anxiety disorder 10. Bipolar disorder 11. Migraine headaches 12. Hypertensive heart disease OPERATION: 1. Robotic-assisted da Elia Xi laparoscopic takedown of Jm fundoplasty 2. Robotic-assisted da Elia Xi laparoscopic extensive lysis of adhesions over 2 hours for perigastric adhesions 3. Robotic-assisted da Elia Xi laparoscopic reduction and repair of recurrent incarcerated paraesophageal hiatal hernia, 6 x 8 cm, with [place] Biopatch A 8 x 8 cm. 4. Intraoperative esophagogastroduodenoscopy 5. Placement of 56-Wallisian bougie Implants: [place] Biopatch A 8 x 8 cm Anesthesia: GETA, local Estimated Blood Loss (ml): 50 Pathology: none sent Condition: stable Disposition: floor COMPLICATIONS: None. Operative Findings: 1. Recurrent incarcerated paraesophageal hiatal hernia, 6 x 8 cm 2. Severe peritoneal adhesions perigastric with incarcerated hiatal hernia with previous Jm fundoplasty requiring over 2 hours 3. Squamocolumnar junction at 32 cm without injury to esophagus or stomach. 4. Large intrathoracic hernia sac causing incarceration of stomach 5. Division and take down of fundoplasty using vessel sealer and stapler 6. More than 30% of stomach incarcerated into chest reduced into abdominal cavity 7. EGD demonstrates no esophageal injury or full-thickness gastrotomy INDICATIONS: The patient is a 52-year-old female who presents with gastroesophageal reflux and a symptomatic diaphragmatic hiatal hernia. Preoperative workup including upper endoscopy demonstrated recurrent hiatal hernia and slipped Jm fundoplasty. She completed an esophageal manometry. Given the severity of his symptoms, particularly of his symptomatic diaphragmatic hiatal hernia, she had elected for surgical intervention. Benefits and risks including bleeding, infection, recurrence, dysphagia, injury to the lung, need for further surgery was described at length. Informed consent was obtained. DESCRIPTION: The patient was brought into the operating room and placed in supine position. Preoperatively he had received heparin subcutaneously for DVT prophylaxis. After general induction, the abdomen was prepped and draped in standard sterile fashion. Hodges catheter was placed. Ioban draping was placed along the abdomen. A timeout protocol was confirmed with the surgical team, for which the patient's name, procedure to be performed including DVT prophylaxis with bilateral SCDs, and preoperative antibiotics were also confirmed. Robotic da Elia Xi system was prepped and primed. At 12 cm from the xiphoid to just below the umbilicus, proposed port sites were marked with indelible marker along the left axillary line, left mid-clavicular line with each ports were marked 10 cm from each other. A 5 mm 0 degrees laparoscopic trocar entry was performed along the left upper quadrant. The abdomen was insufflated to 15 mmHg pressure he tolerated well. Diagnostic laparoscopy demonstrated no injury to bowel, viscera, or mesentery. No injury had occurred to the small bowel or viscera. Along the hiatus, moderate perigastric adhesions were found from the previous fundoplasty. Next, one 8 mm robotic port was placed along the right upper abdomen. An 8-mm port was were placed along the left lateral abdominal wall. The camera 8-mm port was maintained along the epigastrium. A 12 mm port was placed along the left upper abdominal wall after exchanging the 5 mm port. Please note that the ports were placed at least 20 cm away from the target anatomy. Care was taken to check that each robotic arm were safely away from collision with the bed or the patient. At the epigastrium, a medium sized Abner liver retractor was placed under direct visualization with the [employer] Media Manager placed under the right shoulder of the patient. The additional third robotic arm was used. The patient was repositioned in reverse Trendelenburg position at 14-degrees after lowering the bed. The robot was docked above the left side of the patient. Using a grasper for arm 3, a grasper for arm 1, including vessel sealer for arm 4, the robotic system was docked and primed as described. Instruments were interchanged by the bookkeeping assistant. I had sat at the console. The phrenoesophageal ligament had moderate scarring where the distal esophagus was mobilized circumferentially. Care was taken to avoid any injury to the The hiatal hernia sac was incarcerated into the mediastinum and divided to allow complete mobilization and freeing of the distal esophagus into the abdominal cavity. Care was taken to avoid any gastrotomy to the incarcerated upper pole of the stomach including takedown of the Jm fundoplasty. Extensive lysis of adhesions went more than 2 hours for extended dissection of the adherent stomach including to the liver bed including incarcerated stomach of the mediastinum to the hernia sac. The measured defect was consistent with 8 cm axial length and 6 cm in width. To prevent any injury to the stomach or esophagus, intraoperative EGD was used to monitor the short esophageal length of 32 cm including slipped Jm. Once the hiatus and crura was dissected, 2-0 VLOC suture was placed as a running suture to re-approximate the diaphragmatic hiatus posteriorly including anteriorly with imbricating stitch. To buttress the repair, a [place] Biopatch A was prepared along the back table and cut to reinforce the repair as an underlay. The mesh was placed along the crural repair posteriorly then cut in half and tagged using horizontal mattress sutures using 2-0 VLOC. I went to the head of the bed to perform intraoperative esophagogastroduodenoscopy. An Olympus gastroscope was passed through posterior oropharynx, where the GE junction was found just proximal to the diaphragmatic hiatus. The esophagus was short with the squamocolumnar junction at 32 cm from the incisors. Complete takedown of the Jm was confirmed as a tortuous winding stomach was unraveled. The stomach was entered. Chronic gastritis was found. LA grade A erosive esophagitis was identified. Retroflexion of the scope was limited due to incompetent pylorus. The stomach had been desufflated. No evidence of leaks were found or mucosal defects of the esophagus or stomach. This concluded the endoscopic portion of the case. The robot was undocked from the patient. I re-scrubbed into the case. All instruments and pneumoperitoneum were evacuated from the abdominal cavity. Incisions were reapproximated using 4-0 Monocryl in an interrupted subcuticular fashion. All incisions were cleaned using dilute hydrogen peroxide. The 12-mm port site fascial defect was less than 8 mm in size. Liquid glue was applied to the skin. Local anesthetic was infiltrated in all wounds for postop analgesia. Multiple intra-abdominal films were obtained. At the end of the procedure, needle, sponge, and instrument count was verified correct by the surgical scrub technologist. The patient had tolerated the procedure well and was taken to the postanesthesia unit in stable condition. Intraoperative films were reviewed with the patient's family who were pleased with the level of care. Console time 151 minutes
[2018-10-15] MEDS: HYDROmorphone 0.5 MG/0.5 ML SYRINGE IVP PRN ×6 (15:40→16:33)
[2018-10-15] MEDS: ALBUTEROL NEBULIZED 2.5 MG/3 ML INHALATION SCH ×2 (17:14→22:14)
[2018-10-15] MEDS: 0.9% NACL WITH KCL 20 MEQ/L 1,000 ML IV SCH ×2 (17:38→23:53)
[2018-10-15] MEDS: SIMETHICONE 40 MG/0.6 ML DROPS 2,000 MG/30 ML BOTTLE PO SCH ×2 (17:38→23:15)
[2018-10-15] MEDS: HYDROcodone/APAP 15 ML SOLUTION PO PRN (18:47)
[2018-10-15] MEDS: ceFAZolin IN SWFI 2 GM/20 ML SYRINGE IVP SCH (20:58)
[2018-10-15] MEDS: HYDROmorphone 1 MG/ML 1 ML SYRINGE IVP PRN (22:10)
[2018-10-16] MEDS: HYDROcodone/APAP 15 ML SOLUTION PO PRN ×3 (00:42→14:35)
[2018-10-16] MEDS: HYDROmorphone 1 MG/ML 1 ML SYRINGE IVP PRN ×2 (02:05→04:58)
[2018-10-16] MEDS: SIMETHICONE 40 MG/0.6 ML DROPS 2,000 MG/30 ML BOTTLE PO SCH (04:53)
[2018-10-16] MEDS: ceFAZolin IN SWFI 2 GM/20 ML SYRINGE IVP SCH (04:53)
[2018-10-16] MEDS: 0.9% NACL WITH KCL 20 MEQ/L 1,000 ML IV SCH (05:01)
[2018-10-16] MEDS: ALBUTEROL NEBULIZED 2.5 MG/3 ML INHALATION SCH ×2 (07:55→11:05)
[2018-10-16] MEDS ORDERED: 0.9% NACL WITH KCL 20 MEQ/L 1,000 ML IV SCH (08:00)
[2018-10-16 08:11] LABS: Basophils % (A) 0 %; Eosinophils % (A) 0 %; HCT 46.5 % (39.0-53.0); HGB 15.5 gm/dL (13.0-17.5); Lymphocytes % (A) 8 %; MCH 32.4 pg (25.0-35.0); MCHC 33.4 g/dL (31.0-37.0); MCV 97.2 fL (80.0-100.0); Monocytes # (A) 0.8 k/uL (0-1.0); Monocytes % (A) 7 %; Neutrophils # (A) 9.9 k/uL (1.3-7.7); Neutrophils % (A) 84 %; Platelet Count 139 k/uL (150-450); RBC 4.78 m/uL (4.30-5.90); RDW 13.6 % (11.5-15.5); WBC 11.8 k/uL (3.8-10.6)
[2018-10-16 08:16] LABS: Anion Gap 4 mmol/L; Blood Urea Nitrogen 15 mg/dL (9-20); Calcium 8.8 mg/dL (8.4-10.2); Carbon Dioxide 24 mmol/L (22-30); Chloride 108 mmol/L (98-107); Magnesium 2.1 mg/dL (1.6-2.3); Phosphorus 2.4 mg/dL (2.5-4.5); Potassium 4.2 mmol/L (3.5-5.1); Sodium 136 mmol/L (137-145)
[2018-10-16] MEDS ORDERED: METOPROLOL TARTRATE 25 MG TAB PO SCH (09:00)
[2018-10-16] MEDS ORDERED: GABAPENTIN 100 MG CAP PO SCH (09:00)
[2018-10-16] MEDS ORDERED: TAMSULOSIN 0.4 MG CAP.ER.24H PO SCH (09:00)
[2018-10-16] MEDS ORDERED: ENOXAPARIN 40 MG/0.4 ML SYRINGE SQ SCH (09:00)
[2018-10-16] MEDS ORDERED: PANTOPRAZOLE 40 MG/10 ML VIAL IV SCH (09:00)
[2018-10-16] MEDS ORDERED: FINASTERIDE 5 MG TAB PO SCH (09:00)
[2018-10-16 09:31] VITALS: BP 146/80; RESP 12; TEMP 98
[2018-10-16] MEDS ORDERED: Phosphorus Replacement Protoco 1 EACH MISC MISCELLANE PRN (09:48)
--- NOTE | 2018-10-16 09:55 | P.PN ---
Subjective Progress Note Date: 10/16/18 CHIEF COMPLAINT: Paraesophageal hiatal hernia recurrent with gastroesophageal reflux disease HISTORY OF PRESENT ILLNESS: 72-year-old male who is status post robotic-assisted da Elia Xi laparoscopic takedown of Jm fundoplasty, extensive lysis of adhesions for perigastric adhesions, and reduction repair of recurrent incarcerated paraesophageal hiatal hernia. POD #1. Patient does report some dysphagia this morning but overall is tolerating his breakfast. Denies nausea or vomiting. Patient required straight cath overnight for 700cc. Patient has not voided since straight cath. Patient reports issues with voiding after surgeries and sometimes at home. He is on Flomax and Proscar. Vital signs are stable. Patient afebrile. WBC 11.8. Hemoglobin 15.5. Potassium 4.2. Phosphorus 2.4. Magnesium 2.1. PHYSICAL EXAM: VITAL SIGNS: Reviewed. GENERAL: Well-developed in no acute distress. HEENT: No sclera icterus. Extraocular movements grossly intact. Moist buccal mucosa. Head is atraumatic, normocephalic. ABDOMEN: Soft to slightly firm-patient reports baseline. Mild surgical tenderness. Positive bowel sounds. Laparoscopic incision sites clean dry and intact without drainage. NEUROLOGIC: Alert and oriented. Cranial nerves II through XII grossly intact. ASSESSMENT: 1. Diaphragmatic paraesophageal hiatal hernia with severe gastroesophageal reflux disease 2. Hypertensive upper esophageal sphincter 3. Postoperative urinary retention, and expected outcome of surgery secondary to patient's pre-existing obstructive uropathy PLAN: 1. Await results of esophagram 2. Continue liquid diet 3. Pain control 4. Activity as tolerated. Patient encouraged to be out of bed and ambulatory today 5. Bladder scan patient. Notify provider with results greater than 300 mL. Continue Proscar and Flomax. If patient continues to have urinary retention may require insertion of indwelling urinary catheter. If patient requires urinary catheter, will discharge patient with blas and leg bag 6. Replace phosphorus Nurse practitioner note has been reviewed by physician. Signing provider agrees with the documented findings, assessment, and plan of care. Objective - Vital Signs Vital signs: Vital Signs Temp 98 F 10/16/18 07:00 Pulse 77 10/16/18 08:10 Resp 12 10/16/18 07:00 BP 146/80 10/16/18 07:00 Pulse Ox 95 10/16/18 07:00 Intake & Output 10/15/18 10/16/18 10/16/18 18:59 06:59 18:59 Intake Total 1780 1875 Output Total 620 700 Balance 1160 1175 Intake: IV 1600 Intake, IV Titration 1875 Amount 0.9% NaCl with KCl 20 Meq 1875 /l 1,000 ml @ 150 mls/hr IV .Q6H40M GAMAL Rx#: [id number] Oral 180 Output: Urine 600 700 Straight 700 Estimated Blood Loss 20 Other: Voiding Method Urinal # Voids 1 - Labs CBC & Chem 7: 10/16/18 07:22 10/16/18 07:22 Labs: Abnormal Lab Results - Last 24 Hours (Table) 10/16/18 10/16/18 Range/Units 07:22 07:22 WBC 11.8 H (3.8-10.6) k/uL Plt Count 139 L (150-450) k/uL Neutrophils # 9.9 H (1.3-7.7) k/uL Sodium 136 L (137-145) mmol/L Chloride 108 H (98-107) mmol/L Creatinine 0.60 L (0.66-1.25) mg/dL Phosphorus 2.4 L (2.5-4.5) mg/dL Assessment and Plan (1) Urinary retention due to benign prostatic hyperplasia Current Visit: Yes Status: Acute Code(s): N40.1 - BENIGN PROSTATIC HYPERPLASIA WITH LOWER URINARY TRACT SYMP; R33.8 - OTHER RETENTION OF URINE SNOMED Code(s): 355793471 (2) Urinary retention Current Visit: Yes Status: Acute Code(s): R33.9 - RETENTION OF URINE, UNSPECIFIED SNOMED Code(s): 630398918 (3) Hiatal hernia Current Visit: Yes Status: Acute Code(s): K44.9 - DIAPHRAGMATIC HERNIA WITHOUT OBSTRUCTION OR GANGRENE SNOMED Code(s): 98358614
--- NOTE | 2018-10-16 09:59 | FL ---
EXAMINATION TYPE: FL esophagus cervic/pharynx DATE OF EXAM: 10/16/2018 CLINICAL HISTORY: Status post gastric sleeve post op Jm fundoplasty for HH repair, thin Barium used beacause of iodine allergy, 23sec fl time The patient ingested contrast without difficulty or delay. Noted are postsurgical changes of gastric sleeve. There is no evidence for leak or obstruction. Mild edema at the site of surgical procedur e. Contrast is noted within the duodenum. IMPRESSION: Post-surgical change of gastric sleeve without evidence for obstruction or leak at this point in time.
[2018-10-16] MEDS ORDERED: SODIUM PHOSPHATE 10 MMOL in SODIUM CHLORIDE 0.9% 250 ML IVPB ONE (10:00)
[2018-10-16 11:21] VITALS: PULSE 80
--- NOTE | 2018-10-16 13:26 | P.DS ---
Providers Date of admission: 10/15/2018 Expected date of discharge: 10/16/18 Attending physician: Melania Murillo Primary care physician: Jayy Schmidt - Discharge Diagnosis(es) (1) COPD (chronic obstructive pulmonary disease) Current Visit: Yes Status: Acute (2) Dysphagia Current Visit: Yes Status: Acute (3) Esophageal dysmotility Current Visit: Yes Status: Acute (4) Esophageal hypertension Current Visit: Yes Status: Acute (5) Hypertensive heart disease Current Visit: Yes Status: Acute (6) Incarcerated paraesophageal hernia Current Visit: Yes Status: Acute (7) Ischemic dilated cardiomyopathy Current Visit: Yes Status: Acute (8) Urinary retention due to benign prostatic hyperplasia Current Visit: Yes Status: Acute (9) GERD (gastroesophageal reflux disease) Current Visit: No Status: Acute (10) History of urinary tract obstruction Current Visit: No Status: Acute Patient Condition at Discharge: Stable Plan - Discharge Summary Discharge Rx Participant: Yes New Discharge Prescriptions: New Bisacodyl [Dulcolax] 5 mg PO DAILY PRN #10 tablet.dr PRN Reason: Constipation Simethicone 40 mg/0.6 ml Drops [Mylicon Drops] 40 mg PO PCHS PRN #30 ml PRN Reason: gas HYDROcodone/APAP [[place] Elixir 7.5-325Mg/15Ml] 15 ml PO Q6HR PRN 3 Days #180 ml PRN Reason: Pain Ondansetron Odt [Zofran Odt] 4 mg PO Q8HR PRN #9 tab PRN Reason: Nausea Continue Nitroglycerin Sl Tabs [Nitrostat] 0.4 mg SUBLINGUAL Q5M PRN #0 tab PRN Reason: Chest Pain Aspirin [Adult Low Dose Aspirin EC] 81 mg PO DAILY Albuterol Nebulized [Ventolin Nebulized] 2.5 mg INHALATION RT-Q4H PRN PRN Reason: Shortness Of Breath Tamsulosin [Flomax] 0.4 mg PO DAILY Omeprazole 40 mg PO DAILY Finasteride [Proscar] 5 mg PO DAILY Acetaminophen Tab [Tylenol] 650 mg PO Q4H PRN PRN Reason: Pain Gabapentin [Neurontin] 200 mg PO DAILY Metoprolol Tartrate 25 mg PO DAILY Atorvastatin [Lipitor] 20 mg PO DAILY Discontinued methylPREDNISolone Dose Pack [Medrol Dose Pack] 4 mg PO DIRECTED Discharge Medication List Nitroglycerin Sl Tabs [Nitrostat] 0.4 mg SUBLINGUAL Q5M PRN #0 tab 09/30/14 [Rx] Aspirin [Adult Low Dose Aspirin EC] 81 mg PO DAILY 02/14/17 [History] Albuterol Nebulized [Ventolin Nebulized] 2.5 mg INHALATION RT-Q4H PRN 05/29/17 [History] Acetaminophen Tab [Tylenol] 650 mg PO Q4H PRN 07/27/18 [History] Finasteride [Proscar] 5 mg PO DAILY 07/27/18 [History] Omeprazole 40 mg PO DAILY 07/27/18 [History] Tamsulosin [Flomax] 0.4 mg PO DAILY 07/27/18 [History] Gabapentin [Neurontin] 200 mg PO DAILY 10/07/18 [History] Atorvastatin [Lipitor] 20 mg PO DAILY 10/15/18 [History] Metoprolol Tartrate 25 mg PO DAILY 10/15/18 [History] Bisacodyl [Dulcolax] 5 mg PO DAILY PRN #10 tablet. 10/16/18 [Rx] HYDROcodone/APAP [[place] Elixir 7.5-325Mg/15Ml] 15 ml PO Q6HR PRN 3 Days #180 ml 10/16/18 [Rx] Ondansetron Odt [Zofran Odt] 4 mg PO Q8HR PRN #9 tab 10/16/18 [Rx] Simethicone 40 mg/0.6 ml Drops [Mylicon Drops] 40 mg PO PCHS PRN #30 ml 10/16/18 [Rx] Follow up Appointment(s)/Referral(s): Melania Murillo MD [STAFF PHYSICIAN] - 10/20/18 Jayy Schmidt MD [Primary Care Provider] - 1 Week Patient Instructions/Handouts: *Surgery [facility] - ([facility]) Lap Jm Fundiplication Post-Op Instructions Activity/Diet/Wound Care/Special Instructions: No lifting over 4 pounds in 4 weeks. May shower. No bath tub soaks. Liquid diet only for 2 weeks. No straws or carbonated beverages. Discharge Disposition: HOME SELF-CARE
[2018-10-17] MEDS ORDERED: BISACODYL 5 MG TABLET.DR PO PRN (08:00)
== END 2018-10-16 14:42 | disposition home or self-care (01) | DRG 327 ==
LOC: OR 10:26 → 2ORMAIN 10:27 → 4SSUR 15:16 → OR 10-16 15:34
PROVIDERS: ADMIT Surgery Plastic and Reconstructive Surgery; ATTEND Surgery Plastic and Reconstructive Surgery
DX: K44.0 Diaphragmatic hernia with obstruction, without gangrene (principal); K22.10 Ulcer of esophagus without bleeding; I42.0 Dilated cardiomyopathy; N13.8 Other obstructive and reflux uropathy; K29.50 Unspecified chronic gastritis without bleeding; K21.0 Gastro-esophageal reflux disease with esophagitis; K66.0 Peritoneal adhesions (postprocedural) (postinfection); K22.4 Dyskinesia of esophagus; K22.2 Esophageal obstruction; F41.9 Anxiety disorder, unspecified; F31.9 Bipolar disorder, unspecified; M19.90 Unspecified osteoarthritis, unspecified site; J44.9 Chronic obstructive pulmonary disease, unspecified; N52.9 Male erectile dysfunction, unspecified; E78.5 Hyperlipidemia, unspecified; I10 Essential (primary) hypertension; N40.1 Benign prostatic hyperplasia with lower urinary tract symptoms; R33.8 Other retention of urine; G89.29 Other chronic pain; M54.6 Pain in thoracic spine; I25.10 Atherosclerotic heart disease of native coronary artery without angina pectoris; I11.9 Hypertensive heart disease without heart failure; I25.5 Ischemic cardiomyopathy; G43.909 Migraine, unspecified, not intractable, without status migrainosus; Z79.82 Long term (current) use of aspirin; Z86.73 Personal history of transient ischemic attack (TIA), and cerebral infarction without residual deficits; Z86.14 Personal history of Methicillin resistant Staphylococcus aureus infection; Z87.891 Personal history of nicotine dependence; Z79.899 Other long term (current) drug therapy; Z79.891 Long term (current) use of opiate analgesic; I25.2 Old myocardial infarction; Z80.0 Family history of malignant neoplasm of digestive organs; Z82.5 Family history of asthma and other chronic lower respiratory diseases; Z87.442 Personal history of urinary calculi; Z90.49 Acquired absence of other specified parts of digestive tract
CPT/HCPCS: 74210; 80051; 82310; 82565; 83735; 84100; 84520; 85025; 94640

== ENCOUNTER 2019-01-20 09:17 | Day surgery (SDC) | payer MEDICARE, OTHER ==
[2019-01-14 15:28] VITALS: BMI 26.5
[~2019-01-20 09:17] MED LIST changes: -HEPARIN SODIUM,PORCINE 5,000 UNIT/ML 1 ML VIAL SQ ONE; -ONDANSETRON 4 MG/2 ML VIAL IVP ONE; -PANTOPRAZOLE 40 MG/10 ML VIAL IV STA; -ceFAZolin IN SWFI 2 GM/20 ML SYRINGE IVP ONE
[2019-01-20 09:39] VITALS: RESP 16; TEMP 97.6
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
[2019-01-20] MEDS ORDERED: PROPOFOL 10 MG/ML 20 ML VIAL IV ONE (10:16)
--- NOTE | 2019-01-20 10:47 | P.PCN ---
Date of Procedure: 01/20/19 Description of Procedure: PREOPERATIVE DIAGNOSIS: Colonoscopy screening. History of polyps POSTOPERATIVE DIAGNOSIS: Colonoscopy screening. History of polyps External hemorrhoids OPERATION: Colonoscopy to the ileocecal valve and appendiceal orifice. SURGEON: Melania Murillo MD. ANESTHESIA: MAC. INDICATIONS: The patient is a 73-year-old male who presents for colonoscopy screening. Benefits and risks were described and informed consent was obtained. DESCRIPTION OF PROCEDURE: The patient had undergone Suprep. He had been brought into the operating room and laid in the left lateral decubitus position. After adequate intravenous sedation, the rectum was examined with 2% lidocaine jelly. The prostate was unremarkable. External hemorrhoids were encountered. The rectal tone was within normal limits. No lesions were palpated in the rectal vault. An Olympus colonoscope was advanced to the ascending colon using abdominal pressure for highly redundant sigmoid colon The prep was excellent with clear visualization of the mucosal folds. No scattered diverticulosis was encountered. No colonic polyps were found. No evidence of focal colitis was found. Retroflexion of the scope demonstrated grade 2 internal hemorrhoids without active bleeding or inflammation. The colon was desufflated. The patient had tolerated the procedure well. Withdrawal time was over 6 minutes. FINDINGS: Aronchick preparation quality scale 1 (1-5) Internal hemorrhoids, grade 2 External prolapsed hemorrhoids, grade 3 Highly redundant sigmoid colon requiring abdominal wall pressure No arteriovenous malformations. No adenomatous polyps. No focal colitis. RECOMMENDATIONS: Lower endoscopy in 3 years, 2021 Plan - Discharge Summary Discharge Rx Participant: No New Discharge Prescriptions: No Action Nitroglycerin Sl Tabs [Nitrostat] 0.4 mg SUBLINGUAL Q5M PRN #0 tab PRN Reason: Chest Pain Albuterol Nebulized [Ventolin Nebulized] 2.5 mg INHALATION RT-Q4H PRN PRN Reason: Shortness Of Breath Tamsulosin [Flomax] 0.4 mg PO DAILY Finasteride [Proscar] 5 mg PO DAILY Gabapentin [Neurontin] 600 mg PO DAILY Metoprolol Tartrate 25 mg PO DAILY Atorvastatin [Lipitor] 20 mg PO DAILY Discharge Medication List Nitroglycerin Sl Tabs [Nitrostat] 0.4 mg SUBLINGUAL Q5M PRN #0 tab 09/30/14 [Rx] Albuterol Nebulized [Ventolin Nebulized] 2.5 mg INHALATION RT-Q4H PRN 05/29/17 [History] Finasteride [Proscar] 5 mg PO DAILY 07/27/18 [History] Tamsulosin [Flomax] 0.4 mg PO DAILY 07/27/18 [History] Gabapentin [Neurontin] 600 mg PO DAILY 10/07/18 [History] Atorvastatin [Lipitor] 20 mg PO DAILY 10/15/18 [History] Metoprolol Tartrate 25 mg PO DAILY 10/15/18 [History] Follow up Appointment(s)/Referral(s): Melania Murillo MD [STAFF PHYSICIAN] - As Needed Patient Instructions/Handouts: *Surgery [facility] - (Anesthesia) Endoscopy Discharge Instructions, Colonoscopy (DC) Activity/Diet/Wound Care/Special Instructions: Repeat colonoscopy in 3 years, 2021 Discharge Disposition: HOME SELF-CARE
[2019-01-20] MEDS ORDERED: IV FLUID CONTINUATION 700 ML IV ONE (10:50)
[2019-01-20 10:52] VITALS: PULSE 63
[2019-01-20 11:09] VITALS: BP 121/79
== END 2019-01-20 11:23 | disposition home or self-care (01) ==
LOC: ORWHC2ENDO 09:17
PROVIDERS: ATTEND Surgery Plastic and Reconstructive Surgery
DX: Z12.11 Encounter for screening for malignant neoplasm of colon (principal); Z86.010 Personal history of colon polyps; I10 Essential (primary) hypertension; I25.2 Old myocardial infarction; J44.9 Chronic obstructive pulmonary disease, unspecified; K58.9 Irritable bowel syndrome, unspecified; K64.4 Residual hemorrhoidal skin tags; M19.90 Unspecified osteoarthritis, unspecified site; Z86.73 Personal history of transient ischemic attack (TIA), and cerebral infarction without residual deficits; Z87.442 Personal history of urinary calculi; Z87.891 Personal history of nicotine dependence; Z80.8 Family history of malignant neoplasm of other organs or systems; Z83.6 Family history of other diseases of the respiratory system; Z79.899 Other long term (current) drug therapy; Z98.42 Cataract extraction status, left eye; Z98.41 Cataract extraction status, right eye; Z91.041 Radiographic dye allergy status
CPT/HCPCS: J2704; G0105

== ENCOUNTER → 2019-03-01 | Outpatient (CLI) | payer MEDICARE, OTHER | END | disposition home or self-care (01) | LOC: LABPAT 12:44 | PROVIDERS: ATTEND Orthopaedic Surgery Orthopaedic Surgery of the Spine | DX: Z01.812 Encounter for preprocedural laboratory examination (principal); Z01.818 Encounter for other preprocedural examination; M51.26 Other intervertebral disc displacement, lumbar region | CPT/HCPCS: 36415; 86850; 86900; 86901; 87070 ==

== ENCOUNTER 2019-03-10 09:10 | Day surgery (SDC) | payer MEDICARE, OTHER ==
[2019-03-05 14:35] VITALS: BMI 26.5
[~2019-03-10 09:10] MED LIST changes: +BACITRACIN 50,000 UNIT, POLYMYXIN B 500,000 UNIT in SODIUM CHLORIDE 0.9% IRRIGATIO 1,00... IRRIGATION ONE; +DEXAMETHASONE SOD PHOSPHATE 10 MG/ML 1 ML VIAL IV ONE; -LACTATED RINGERS 1,000 ML IV SCH; +ONDANSETRON 4 MG/2 ML VIAL IVP PRN
[2019-03-10] MEDS: LACTATED RINGERS 1,000 ML IV SCH (10:20)
[2019-03-10] MEDS: ONDANSETRON 4 MG/2 ML VIAL IVP ONE ×2 (10:20→13:10)
[2019-03-10] MEDS ORDERED: LIDOCAINE 1% INJ 10MG/ML (20 ML MDV) ONE (11:17)
[2019-03-10] MEDS ORDERED: NEOSTIGMINE 1 MG/ML 10 ML VIAL ONE (11:17)
[2019-03-10] MEDS ORDERED: fentaNYL (PF) 50 MCG/ML 2 ML AMP ONE (11:17)
[2019-03-10] MEDS ORDERED: MIDAZOLAM 2 MG/2 ML VIAL ONE (11:17)
[2019-03-10] MEDS ORDERED: ROCURONIUM BROMIDE 10 MG/ML 10 ML VIAL IV ONE (11:17)
[2019-03-10] MEDS ORDERED: PHENYLEPHRINE-0.9% NACL SYG 1 MG/10 ML SYRINGE ONE (11:17)
[2019-03-10] MEDS ORDERED: KETAMINE 10 MG/ML 20 ML VIAL ONE (11:17)
[2019-03-10] MEDS ORDERED: GLYCOPYRROLATE 0.2 MG/ML 2 ML VIAL ONE (11:17)
[2019-03-10] MEDS ORDERED: PROPOFOL 10 MG/ML 20 ML VIAL IV ONE (11:17)
[2019-03-10] MEDS ORDERED: ceFAZolin 1,000 MG VIAL IVPB ONE (11:22)
[2019-03-10] MEDS ORDERED: LIDOCAINE 0.5%-EPI 1:200,000 50 ML VIAL SQ ONE (11:51)
[2019-03-10] MEDS ORDERED: methylPREDNISolone ACETATE 80 MG/ML 1 ML VIAL INJ ONE (12:28)
[2019-03-10] MEDS ORDERED: ONDANSETRON 4 MG/2 ML VIAL IVP PRN (13:09)
[2019-03-10] MEDS ORDERED: MAGNESIUM HYDROXIDE 2,400 MG/10 ML CUP PO PRN (13:09)
[2019-03-10] MEDS ORDERED: IBUPROFEN 600 MG TAB PO PRN (13:09)
[2019-03-10] MEDS ORDERED: HYDROcodone/APAP 5-325MG 1 EACH TAB PO PRN (13:09)
[2019-03-10] MEDS ORDERED: BENZOCAINE/MENTHOL LOZENG 1 EACH LOZENGE MUCOUS MEM PRN (13:09)
[2019-03-10] MEDS: HYDROmorphone 0.5 MG/0.5 ML SYRINGE IVP PRN ×7 (13:10→18:38)
[2019-03-10] MEDS ORDERED: NITROGLYCERIN SL TABS 0.4 MG TAB SUBLINGUAL PRN (13:15)
[2019-03-10] MEDS ORDERED: ALBUTEROL NEBULIZED 2.5 MG/3 ML INHALATION PRN (13:15)
[2019-03-10] MEDS: KETOROLAC 30 MG/ML 1 ML VIAL IVP PRN (13:22)
--- NOTE | 2019-03-10 13:23 | P.OP ---
Date of Procedure: 03/10/19 Preoperative Diagnosis: Severe spinal stenosis L2-3, herniated nucleus pulposis L2-3, history of prior fusion L3 4, neurogenic claudication, bilateral lower extremity radiculopathy Postoperative Diagnosis: Severe spinal stenosis L2-3, herniated nucleus pulposis L2-3, history of prior fusion L3 4, neurogenic claudication, bilateral lower extremity radiculopathy Anesthesia: GETA Pathology: none sent Condition: stable Disposition: PACU Description of Procedure: BRIEF OPERATIVE NOTE Preoperative Diagnosis: Severe spinal stenosis L2-3, degenerative disc disease L2-3, herniated nucleus pulposis L2-3 neurogenic claudication, lower extremity radiculopathy, history of prior fusion L3 4 Postoperative Diagnosis: Same Procedure: Laminectomy and decompression with wide bilateral foraminotomies L2-3 Discectomy for decompression L2-3 Placement of the interlaminar stabilization device, Coflex device at L2-3 Surgeon: Dr. Blackburn Learning And Development Officer: Shin Nunes is present throughout the entire the case persistence during positioning, dissection, exposure, visualization, and all crucial elements of the case as well as closure. Anesthesia: General anesthesia per Dr. Lewis Estimated blood loss: approximately 50 mL Complications: None apparent Components implanted: Coflex interlaminar stabilization device L2-3 measuring 8 mm Disposition: To recovery room in good stable condition. OPERATIVE INDICATIONS The patient has been having issues in their lower back and lower extremities. He had undergone prior laminectomy decompression and fusion at L3 4 the past a Giovanni 2 years ago. He C done well with that but over the course of the past several months has been elevating worsening pain at his bilateral lower extremities with neurogenic claudication and radiculopathy. She was found have severe stenosis L2-3 with progressive adjacent level degeneration and disc herniation at L2-3. he is having severe claudication symptoms due to her severe spinal stenosis at his lumbar spine particularly at L2-3 We discussed various treatment options. The patient has been through conservative treatment. she is not having any prolonged benefit despite aggressive conservative treatment We discussed various treatment options including surgery, ranging from laminectomy alone to the possibility of decompression with stabilization as well as the decompression and fusion. We felt that the patient could benefit with decompression and interlaminar stabilization,and the patient wishes to proceed with surgery We discussed the risk, patient's alternatives and benefits of surgery including but not limited to, risk of bleeding risk of infection, risk of need for further surgery, risk of decreased, loss of motion, loss of function, nerve damage, paralysis, heart attack, blindness and . OPERATIVE SUMMARY After discussing all the risks, patient alternatives and benefits at length, the patient elected to proceed with surgical intervention, signed informed consent, and presented for their procedure. The patient was seen and examined in the preoperative holding area and the surgical site was marked. The patient was gi alex antibiotics and brought to the operating room. The patient was sedated and intubated by anesthesia in standard fashion. The patient was positioned on to the operating room table in a prone position on the appropriate frame which was well-padded and well molded. We were careful to pad any bony prominences and pressure points. We were careful to maintain the patient's cervical spine and good neutral alignment and position throughout. The patient was prepped and draped in a normal standard fashion. An appropriate timeout and keystone protocol performed. We were able to proceed with the surgery. Fluoroscopy was utilized to establish the appropriate level. The local wound area was infiltrated with local anesthetic. An incision was made at the midline longitudinally over the appropriate levels at L2-3 utilizing the prior incision. Dissection was taken down subcutaneously to the level of the fascia which was split midline. Dissection was taken over the lamina. Intraoperative fluoroscopy was taken which showed a marker at the appropriate level at L2-3. With the appropriate level positively confirmed, we were able to proceed with laminectomy. The wound was copiously irrigated and suctioned dry as had been done periodically throughout the case. I performed a laminectomy with a combination of curettes and a high-speed bur and Kerrison rongeurs. A small medial facetectomy was performed again further access. A partial foraminotomy was also performed. Portions of the ligamentum flavum were taken down to expose the dura and traversing nerve root. There is severe t hickening of the ligamentum flavum and significant facet hypertrophy with osteophytes causing severe central and bilateral foraminal stenosis. This was remedied with the decompression.there is also significant impingement at the traversing nerve root on the left side caused by disc herniation. I was able to expose the disc itself and perform discectomy which gave further decompression at the traversing nerve root .There is no evidence of dural tear or leak. Good hemostasis maintained. The wound was copiously irrigated and suctioned dry. Good decompression was noted. I was able to measure the appropriate size interlaminar stabilizing device. I was able get good alignment at the intralaminar spaces. I was able to trial with the appropriate size device and get gentle distraction at each level. I chose he is appropriate size interlaminar stabilizer of an 8 mm stabilizer. The Coflex device was positioned and malleted in place and good alignment good position with good fixation at each level. With his prior laminectomy decompression at L3 4 there was some of the spinous process at L3 missing however he had good lamina and stability at the L3 lamina. The construct was checked and found to be stable. There is good decompression without any evidence of dural tear or leak. There is no evidence of fracture. We were able to proceed with closure. The fascia was closed for a watertight closure. The subcuticular tissue was closed with absorbable suture. The wound was cleaned and dried and dressed with the appropriate dressing. The drapes were broken down. The patient was gently rolled back onto their hospital bed being careful to maintain their cervical spine and good neutral alignment and position. They were woken up by anesthesia, extubated, and brought to the r ecovery room in good stable condition. The patient will be admitted to the hospital for observation and for appropriate postoperative care, medical management and monitoring. We will continue to fol low them closely about the postoperative course.
[2019-03-10] MEDS: diphenhydrAMINE 50 MG/ML 1 ML VIAL IVP ONE ×2 (13:30→14:27)
--- NOTE | 2019-03-10 14:43 | FL ---
Fluoroscopy HISTORY: Lumbar laminectomy 3 seconds fluoroscopy time supplied to the referring clinician. 1 intraoperative C-arm images docume nt the procedure. See dictated report from orthopedic surgery.
--- NOTE | 2019-03-10 15:11 | XR ---
The limited lumbar spine HISTORY: Posterior lumbar fusion Single intraoperative lateral lumbar spine view documents the procedure.
[2019-03-10] MEDS: HYDROcodone/APAP 5-325MG 1 EACH TAB PO PRN ×3 (15:28→23:59)
[2019-03-11] MEDS: LACTATED RINGERS 1,000 ML IV SCH (01:12)
[2019-03-11 01:44] VITALS: RESP 18
[2019-03-11] MEDS: HYDROmorphone 0.5 MG/0.5 ML SYRINGE IVP PRN (03:00)
[2019-03-11 07:22] VITALS: BP 89/62; PULSE 82; TEMP 98.6
[2019-03-11] MEDS: HYDROcodone/APAP 5-325MG 1 EACH TAB PO PRN (07:51)
--- NOTE | 2019-03-11 07:56 | P.DS ---
Providers Date of admission: 03/10/19 Expected date of discharge: 03/11/19 Attending physician: Jasen Blackburn Primary care physician: Jayy Schmidt [facility] Course: The patient presented on the day of admission as per their operative note. He had severe spinal stenosis at L23 with lower extremity radiculopathy and neurogenic claudication. It had a prior laminectomy decompression and fusion at L3 4 the past approximately 2 years ago and had initially done well with that however started developing worsening symptoms and was found have adjacent level degeneration with stenosis at L2-3 which seem to be the primary source of his symptoms. After failing conservative treatment patient elected to proceed with surgical intervention and presented yesterday for his surgery as per his operative note. He feels his legs are doing better today. He says his legs are not giving him any pain today. He says the pain is located around the surgical site as expected. Physical Exam The incision site is clean dry and intact. There is no erythema no drainage. There is no purulence no evidence of infection. There is no active drainage. Abdomen soft and nontender. Chest has good excursion with deep inspiration and expiration. The patient has active and passive range of motion intact at the upper and lower extremities. There is no acute change in neurologic status. He has sustained dorsal flexion plantar flexion and EHL intact. He is able lift his legs up off the bed independently. Hospital Course Postoperative day #1 status post laminectomy decompression with bilateral foraminotomy and discectomy at L2-3 with placement of interlaminar stabilizer. Patient is doing well thus far postoperatively. The patient has been making good progress postoperatively. They have completed the prophylactic antibiotics without any signs or symptoms of infection. The patient has been able to advance their diet, and is tolerating diet adequately. The pain was initially controlled with IV medications and is now controlled appr opriately with oral medications. The patient has been able to increase their mobilization. The patient has progressed appropriately. I think they are in good stable condition for discharge today. They will be sent home with appropriate prescriptions. I answered their questions to the best of my ability in a language that they can understand and they are agreeable with the plan. They will follow up as directed in approximately 2 weeks or sooner if he is having any problems. Patient Condition at Discharge: Good Plan - Discharge Summary Discharge Rx Participant: No New Discharge Prescriptions: New HYDROcodone/APAP 5-325MG [[place] 5] 1 each PO Q6HR PRN #28 tab PRN Reason: Pain No Action Nitroglycerin Sl Tabs [Nitrostat] 0.4 mg SUBLINGUAL Q5M PRN #0 tab PRN Reason: Chest Pain Albuterol Nebulized [Ventolin Nebulized] 2.5 mg INHALATION RT-Q4H PRN PRN Reason: Shortness Of Breath Tamsulosin [Flomax] 0.4 mg PO DAILY Finasteride [Proscar] 5 mg PO DAILY Gabapentin [Neurontin] 600 mg PO DAILY Metoprolol Tartrate 25 mg PO DAILY Atorvastatin [Lipitor] 20 mg PO DAILY Polyethylene Glycol 3350 [Miralax] 17 gm PO DAILY #30 packet Aspirin [Adult Low Dose Aspirin EC] 81 mg PO DAILY HYDROcodone/APAP 5-325MG [[place] 5-325] 1 tab PO BID PRN PRN Reason: Pain Discharge Medication List Nitroglycerin Sl Tabs [Nitrostat] 0.4 mg SUBLINGUAL Q5M PRN #0 tab 09/30/14 [Rx] Albuterol Nebulized [Ventolin Nebulized] 2.5 mg INHALATION RT-Q4H PRN 05/29/17 [History] Finasteride [Proscar] 5 mg PO DAILY 07/27/18 [History] Tamsulosin [Flomax] 0.4 mg PO DAILY 07/27/18 [History] Gabapentin [Neurontin] 600 mg PO DAILY 10/07/18 [History] Atorvastatin [Lipitor] 20 mg PO DAILY 10/15/18 [History] Metoprolol Tartrate 25 mg PO DAILY 10/15/18 [History] Polyethylene Glycol 3350 [Miralax] 17 gm PO DAILY #30 packet 01/20/19 [Rx] Aspirin [Adult Low Dose Aspirin EC] 81 mg PO DAILY 03/05/19 [History] HYDROcodone/APAP 5-325MG [[place] 5-325] 1 tab PO BID PRN 03/05/19 [History] HYDROcodone/APAP 5-325MG [[place] 5] 1 each PO Q6HR PRN #28 tab 03/10/19 [Rx] Follow up Appointment(s)/Referral(s): Jasen Blackburn DO [Doctor of Osteopathic Medicine] - 2 Weeks Activity/Diet/Wound Care/Special Instructions: Keep site clean. May shower with waterproof Tegaderm intact. Do not soak in a tub. After 72 hours postoperatively, patient May remove dressing and then may shower with area uncovered. Leave Steri-Strips intact and allow them to fray off on their own. May ambulate as tolerated. Avoid heavy or rigorous activity. No repetitive bending twisting or lifting. No overhead work. Discharge Disposition: HOME SELF-CARE
[2019-03-11] MEDS ORDERED: FINASTERIDE 5 MG TAB PO SCH (09:00)
[2019-03-11] MEDS ORDERED: TAMSULOSIN 0.4 MG CAP.ER.24H PO SCH (09:00)
[2019-03-11] MEDS ORDERED: POLYETHYLENE GLYCOL 3350 17 GM POWD.PACK PO SCH (09:00)
[2019-03-11] MEDS ORDERED: GABAPENTIN 300 MG CAP PO SCH (09:00)
[2019-03-11] MEDS ORDERED: METOPROLOL TARTRATE 25 MG TAB PO SCH (09:00)
[2019-03-11] MEDS ORDERED: SENNOSIDES-DOCUSATE SODIUM 1 EACH TAB PO SCH (09:00)
[2019-03-11] MEDS ORDERED: ATORVASTATIN 20 MG TAB PO SCH (09:00)
[2019-03-11] MEDS ORDERED: ASPIRIN 81 MG PO SCH (09:00)
[2019-03-11] MEDS: KETOROLAC 30 MG/ML 1 ML VIAL IVP PRN (10:03)
== END 2019-03-11 10:23 | disposition home or self-care (01) ==
LOC: OR 09:10 → 4SSUR 12:58 → OR 03-11 10:23
PROVIDERS: ATTEND Orthopaedic Surgery Orthopaedic Surgery of the Spine
DX: M51.16 Intervertebral disc disorders with radiculopathy, lumbar region (principal); M48.062 Spinal stenosis, lumbar region with neurogenic claudication; I11.9 Hypertensive heart disease without heart failure; M19.90 Unspecified osteoarthritis, unspecified site; M41.9 Scoliosis, unspecified; G43.909 Migraine, unspecified, not intractable, without status migrainosus; M75.41 Impingement syndrome of right shoulder; M75.51 Bursitis of right shoulder; R27.0 Ataxia, unspecified; G89.4 Chronic pain syndrome; M96.1 Postlaminectomy syndrome, not elsewhere classified; M99.04 Segmental and somatic dysfunction of sacral region; K27.9 Peptic ulcer, site unspecified, unspecified as acute or chronic, without hemorrhage or perforation; J43.9 Emphysema, unspecified; J45.909 Unspecified asthma, uncomplicated; R41.3 Other amnesia; Z98.1 Arthrodesis status; Z86.73 Personal history of transient ischemic attack (TIA), and cerebral infarction without residual deficits; Z90.49 Acquired absence of other specified parts of digestive tract; Z79.899 Other long term (current) drug therapy; Z97.3 Presence of spectacles and contact lenses; Z79.82 Long term (current) use of aspirin; Z79.891 Long term (current) use of opiate analgesic; Z87.891 Personal history of nicotine dependence; Z91.041 Radiographic dye allergy status; Z98.0 Intestinal bypass and anastomosis status
CPT/HCPCS: 63047; 94640; 94760; 97161; 72020; C1713; S0138; J2250; J1200; J1040; J2710; J0690 ×2; J2405; J2001; J3010; J1885 ×2; J2370; J2704; J1170 ×2; 36415; 86850; 86900; 86901; 87070

== ENCOUNTER → 2019-12-10 | Outpatient (CLI) | payer MEDICARE, OTHER ==
[2019-12-10 14:49] LABS: HCT 50.4 % (39.0-53.0); HGB 16.7 gm/dL (13.0-17.5); MCH 31.8 pg (25.0-35.0); MCHC 33.1 g/dL (31.0-37.0); MCV 96.1 fL (80.0-100.0); Mean Platelet Volume 8.1; Platelet Count 154 k/uL (150-450); RBC 5.24 m/uL (4.30-5.90); RDW 13.3 % (11.5-15.5)
[2019-12-10 15:15] LABS: African American GFR (CKD) >90 (>60 ml/min/1.73 sqM); Anion Gap 6 mmol/L; Blood Urea Nitrogen 11 mg/dL (9-20); Carbon Dioxide 26 mmol/L (22-30); Chloride 104 mmol/L (98-107); Non-African American GFR(CKD) 88 (>60 ml/min/1.73 sqM); Potassium 4.1 mmol/L (3.5-5.1); Sodium 136 mmol/L (137-145)
== END | disposition home or self-care (01) ==
LOC: LABPAT 14:27
PROVIDERS: ATTEND Internal Medicine Interventional Cardiology
DX: Z01.818 Encounter for other preprocedural examination (principal); I25.10 Atherosclerotic heart disease of native coronary artery without angina pectoris
CPT/HCPCS: 36415; 80051; 82565; 84520; 85027

== ENCOUNTER 2019-12-24 06:15 | Day surgery (SDC) | payer MEDICARE, OTHER ==
[2019-12-21 09:58] VITALS: BMI 28.2
[~2019-12-24 06:15] MED LIST changes: +ALPRAZolam 0.25 MG TAB PO PRN; +ALPRAZolam 0.5 MG TAB PO PRN; -BACITRACIN 50,000 UNIT, POLYMYXIN B 500,000 UNIT in SODIUM CHLORIDE 0.9% IRRIGATIO 1,00... IRRIGATION ONE; -DEXAMETHASONE SOD PHOSPHATE 10 MG/ML 1 ML VIAL IV ONE; -LIDOCAINE 1% 20 ML VIAL (10MG/ML) FOR IV START INTRADERMA PRN; +NITROGLYCERIN SL TABS 0.4 MG TAB SUBLINGUAL PRN; -ONDANSETRON 4 MG/2 ML VIAL IVP PRN; +SODIUM CHLORIDE 0.9% 1,000 ML in EMPTY BAG 1 BAG IV ONE
[2019-12-24] MEDS ORDERED: ASPIRIN 325 MG TAB PO ONE (07:00)
[2019-12-24] MEDS ORDERED: ATORVASTATIN 80 MG TAB PO ONE (07:00)
[2019-12-24] MEDS ORDERED: LIDOCAINE 1% INJ 10MG/ML (20 ML MDV) ONE (07:10)
[2019-12-24] MEDS ORDERED: HEPARIN SODIUM 1,000 UN/ML (10ML VL) ONE (07:10)
[2019-12-24] MEDS ORDERED: VERAPAMIL 2.5 MG/ML 2 ML AMP ONE (07:10)
[2019-12-24] MEDS ORDERED: SODIUM CHLORIDE 0.9% 1,000 ML IV ONE (07:13)
[2019-12-24] MEDS ORDERED: MIDAZOLAM 2 MG/2 ML VIAL IVP ONE (07:27)
[2019-12-24] MEDS ORDERED: fentaNYL (PF) 50 MCG/ML 2 ML AMP ONE (07:32)
[2019-12-24] MEDS ORDERED: LIDOCAINE 1% INJ 10MG/ML (20 ML MDV) SQ ONE (07:32)
[2019-12-24] MEDS ORDERED: VERAPAMIL SYRINGE (5 MG/10 ML) INTRAARTER ONE (07:34)
[2019-12-24] MEDS ORDERED: BIVALIRUDIN BOLUS 250 MG/50 ML IV ONE (07:52)
[2019-12-24] MEDS ORDERED: BIVALIRUDIN 250 MG in SODIUM CHLORIDE 0.9% 50 ML IV ONE (07:53)
[2019-12-24] MEDS ORDERED: IOPAMIDOL-370 100ML BTL INJ ONE ×2 (07:59→08:19)
[2019-12-24] MEDS ORDERED: fentaNYL (PF) 50 MCG/ML 2 ML AMP IV ONE (08:00)
[2019-12-24] MEDS: NITROGLYCERIN 1000MCG/10ML SYRINGE INTRACORON ONE ×2 (08:09→08:15)
[2019-12-24] MEDS ORDERED: TICAGRELOR 90 MG TAB PO ONE (08:19)
[2019-12-24] MEDS ORDERED: TICAGRELOR 90 MG TAB ONE (08:20)
[2019-12-24] MEDS ORDERED: SODIUM CHLORIDE 0.9% 1,000 ML IV SCH (08:28)
[2019-12-24 08:38] VITALS: RESP 16; TEMP 98.1
[2019-12-24] MEDS ORDERED: NITROGLYCERIN SL TABS 0.4 MG TAB SUBLINGUAL PRN (09:05)
[2019-12-24] MEDS ORDERED: ALBUTEROL NEB (CONC) 2.5 MG/0.5 ML INHALATION PRN (09:05)
[2019-12-24] MEDS ORDERED: ALBUTEROL NEBULIZED 2.5 MG/3 ML INHALATION PRN (09:05)
[2019-12-24] MEDS ORDERED: ISOSORBIDE MONONITRATE ER 30 MG TAB.ER.24H PO SCH (12:00)
--- NOTE | 2019-12-24 12:49 | CC ---
CARDIAC CATHETERIZATION REPORT DATE OF SERVICE: 12/24/2019 PROCEDURE: 1. Left heart catheterization and coronary angiography. 2. PTCA and stenting of mid LAD with a drug-eluting stent. PERFORMED BY: Dr. Bill Lopez. Moderate conscious sedation time was 50 minutes. Patient was administered Versed, oxygenation saturation, hemodynamics and EKG were monitored closely. CLINICAL INFORMATION: Mr. Chapo Hewitt is a 74-year-old gentleman with history of CAD, prior cardiac cath 18 years ago, which did not reveal significant obstructive CAD, but has been having symptoms of chest pain, had an abnormal stress test. He was advised cardiac cath after due discussion regarding risks, benefits, and options. PROCEDURE NOTE: Under strict aseptic precautions and local anesthesia, a 6-Irish introducer was placed in the right radial artery. Using a JL3.5 and JR4 catheters, I performed coronary angiography. The same right Christopher catheter was used to check LV pressures and LV gram was not performed. Following the coronary angiography, I performed intervention of mid LAD with a drug-eluting stent. After which the sheath was taken out and TR band applied as per protocol and saturation of the fingers of the right hand was more than 93%. The patient tolerated procedure well without complications. CARDIAC CATHETERIZATION FINDINGS: The left foot end-diastolic pressure was 6 mmHg without any gradient across the aortic valve. CORONARY ANGIOGRAPHY FINDINGS: RIGHT CORONARY ARTERY: Dominant vessel. Minor irregularities. No significant disease distally, bifurcates into PDA and PLV. LEFT MAIN CORONARY ARTERY: Short patent vessel, free of significant disease that bifurcates into LAD and circumflex. LEFT ANTERIOR DESCENDING CORONARY: This vessel has somewhat of a sluggish flow in the midportion after the origin of two diagonal branches. There is an eccentric 70%-80% stenosis followed by some improvement in caliber and then there is another 70% stenosis, eccentric, well seen in cranial projection. Beyond this, the caliber of the vessel is small and there appears to be mild disease in the distal LAD as well. LAD therefore is a mid tandem lesions of about 70% to 80%. LEFT POSTERIOR CIRCUMFLEX CORONARY ARTERY: Technically nondominant vessel, gives off a single good-sized obtuse marginal,. that runs laterally and divides into 2 branches. The inferior branch has mild diffuse disease but superior branch is free of significant disease. The AV groove branch and left atrial circumflex branch are free of significant disease. FINAL IMPRESSION: This patient has a mid LAD tandem lesion 70%-80%. A right-dominant system, no significant gradient across the aortic valve and normal filling pressures. The inferior limb of obtuse marginal also has mild diffuse disease in the nondominant circumflex. RECOMMENDATIONS: I recommended PCI of LAD and proceeded to perform this in the same setting. PCI PROCEDURE DETAILS: A JL3.5, 6-Irish guide catheter was used to cannulate the left coronary artery. A run- through wire was used to cross the lesion. A 2.5 caliber 20 mm NC Trek balloon was used to pre-dilate the lesion. Initially, I used an 18 and then switched over to a 23 mm long Xience stent of 3.0 caliber and deployed this at 12 atmospheres. Patient did not have much chest pain but had EKG changes. Excellent angiographic result was achieved with remarkable improvement in flow throughout the vessel. I then turned my attention to the inferior limb of the circumflex vessel. As soon as I passed the wire and gave nitroglycerin, the vessel improved and the angiographic appearance almost completely normalized. This suggested that there was a significant element of spasm for this patient. The sheath was then taken out and TR band applied as per protocol and he was sent to the room in a stable condition. FINAL IMPRESSION: Excellent angiographic result was achieved with a stenting of the LAD with a drug- eluting stent with excellent result. Patient received Angiomax bolus and infusion as per protocol and also 180 mg of Brilinta was given. I expect he will be discharged later on today if he remains stable and I will see him within a week. Discharge instructions regarding activity, diet and medications were given. The patient will increase his Imdur from 15 to 30 mg daily, aspirin 81 mg daily, Brilinta 90 mg b.i.d., and Lipitor will be increased from 20-40 mg daily. Given the heart rate of mid to low 50s, I am recommending no beta blockers for him. Discussed my thoughts in detail with the patient and talked to his . MMROSALIAL / IJN: [id number] /
[2019-12-24 18:01] VITALS: BP 139/71; PULSE 53
[2019-12-25] MEDS ORDERED: bisacodyL 5 MG TABLET.DR PO SCH (09:00)
[2019-12-25] MEDS ORDERED: OMEPRAZOLE PO SCH (09:00)
[2019-12-25] MEDS ORDERED: SODIUM BICARBONATE PO SCH (09:00)
[2019-12-25] MEDS ORDERED: ATORVASTATIN 20 MG TAB PO SCH (09:00)
[2019-12-25] MEDS ORDERED: ASPIRIN 81 MG PO SCH (09:00)
== END 2019-12-24 18:07 | disposition home or self-care (01) ==
LOC: CATHCVL 06:15
PROVIDERS: ATTEND Internal Medicine Interventional Cardiology
DX: I25.110 Atherosclerotic heart disease of native coronary artery with unstable angina pectoris (principal); I10 Essential (primary) hypertension; K21.0 Gastro-esophageal reflux disease with esophagitis; E78.00 Pure hypercholesterolemia, unspecified; Z72.0 Tobacco use; Z79.82 Long term (current) use of aspirin; Z79.899 Other long term (current) drug therapy
CPT/HCPCS: 93458; C9600; C1887; C1725; C1769 ×2; C1874; C1894; J2250; J2001; J0583; J1644; Q9967

== ENCOUNTER → 2020-08-21 | Day surgery (SDC) | payer MEDICARE, OTHER ==
[2020-08-15 10:11] VITALS: BMI 28.2
[~2020-08-21] MED LIST changes: +ASPIRIN 325 MG TAB PO ONE; +ASPIRIN 81 MG ONE; +ATORVASTATIN 80 MG TAB PO ONE; +HEPARIN SODIUM 1,000 UN/ML (10ML VL) IV ONE; +IOPAMIDOL-370 100ML BTL INJ ONE; +LIDOCAINE 1% INJ 10MG/ML (20 ML MDV) SQ ONE; +MIDAZOLAM 2 MG/2 ML VIAL IV ONE; +SODIUM CHLORIDE 0.9% 1,000 ML IV ONE; +niCARdipine Syringe (1,000 mcg/10 mL) INTRAARTER ONE
[2020-08-21 07:04] VITALS: RESP 16; TEMP 81.6
[2020-08-21] MEDS: VERAPAMIL SYRINGE (5 MG/10 ML) INTRAARTER ONE ×2 (07:50→08:06)
--- NOTE | 2020-08-21 10:06 | CC ---
CARDIAC CATHETERIZATION REPORT DATE OF SERVICE: 08/21/2020. PROCEDURE: Left heart catheterization and coronary angiography. PERFORMED BY: Dr. Bill Lopez. CLINICAL INFORMATION: Mr. Hewitt is a 74-year-old gentleman with history of hypertension, hyperlipidemia, underwent stenting of mid LAD, which was a long lesion and this was performed on December 24, 2019. He had a single 23 mm long Xience stent deployed. There was also an element of spasm in the circumflex at that time, which was improved once I passed the wires. Because of symptoms of unstable angina, I recommended coronary angiography after due discussion with the patient regarding risks, benefits, and options. Patient understood all details and wished to proceed with the procedure. PROCEDURE NOTE: Under local anesthesia and strict aseptic precautions, a 6-Montserratian introducer was placed in the right radial artery. Using a JL3.5 and JR4 catheters I performed coronary angiography and the right same right catheter was used to check LV pressures. I gave intracoronary nicardipine, which improved the flow in the LAD remarkably. LV gram was not performed. LV pressures were checked. The sheath was taken out and TR band applied as per protocol. The saturation of the fingers of the right hand of 95%. Patient tolerated the procedure well without complication. Moderate conscious sedation time was 19 minutes. Patient was administered Versed, oxygen saturation, hemodynamics and EKG were monitored closely. CARDIAC CATHETERIZATION FINDINGS: The left ventricular end-diastolic pressure was about 14 mmHg without any gradient across the aortic valve. CORONARY ANGIOGRAPHY FINDINGS: RIGHT CORONARY ARTERY: Large dominant vessel has no significant disease. Distally it bifurcates into PDA and PLV. The PLV gives another secondary branch. All of the RCA which is a dominant vessel is free of significant disease and distal branches have mild irregularities. LEFT MAIN CORONARY ARTERY: A very short patent vessel that immediately bifurcates into LAD and circumflex. There is no significant disease in the left main, which is a very small vessel. LEFT ANTERIOR DESCENDING CORONARY ARTERY. Initial injection showed some sluggish flow, but subsequent repositioning of the catheter and nicardipine revealed that the flow was brisk. There is no disease in the LAD at the site of previous stenting. The flow is quite brisk. There is no significant disease in the entire LAD system other than minor irregularities in the stented segment in the mid LAD is widely patent with brisk flow. The LAD gives off diagonal and septal branches which have minor irregularities. LEFT POSTERIOR CIRCUMFLEX CORONARY ARTERY: Nondominant vessel. Good caliber, good distribution, minor irregularities and distal branches have minor irregularities but the flow in the circumflex is free of significant disease. There is a left atrial circumflex branch, which has some diffuse disease. The nondominant circumflex therefore has no significant disease. FINAL IMPRESSION: This patient has widely patent left anterior descending artery at the site of previous stenting. He has a right dominant system. No significant disease in the right coronary artery or circumflex. Normal filling pressures. No gradient. RECOMMENDATIONS: I am recommending that we add Cardizem CD 120 mg daily to his regimen, which already includes Imdur, which I will reduce to 15 mg daily and metoprolol tartrate which will be now 25 mg one in the morning instead of b.i.d. He will be discharged later on today if he remains stable. Findings are discussed with the patient and . CARLOS / SURJITN: [id number] /
[2020-08-21 13:11] VITALS: BP 111/65
[2020-08-21 14:08] VITALS: PULSE 58
== END ==
LOC: CATHCVL 06:23
PROVIDERS: ATTEND Internal Medicine Interventional Cardiology
DX: I20.0 Unstable angina (principal); I10 Essential (primary) hypertension; E78.00 Pure hypercholesterolemia, unspecified; Z95.5 Presence of coronary angioplasty implant and graft; E78.2 Mixed hyperlipidemia; Z79.02 Long term (current) use of antithrombotics/antiplatelets; Z79.82 Long term (current) use of aspirin; Z79.899 Other long term (current) drug therapy
CPT/HCPCS: 93458; C1769 ×2; C1894; J2250; J2001; J1644; Q9967

== ENCOUNTER → 2020-09-12 | Outpatient (CLI) | payer MEDICARE, OTHER ==
--- NOTE | 2020-09-13 08:47 | US ---
EXAMINATION TYPE: US prostate transrectal DATE OF EXAM: 09/12/2020 COMPARISON: NONE CLINICAL HISTORY: N40.1 Benign prostatic hyperplasia. Elevated PSA. This examination was performed using the transrectal probe. EXAM MEASUREMENTS: Gland Size: 4.2 x 2.6 x 5.0 cm Volume: 28.5 Predicted PSA: 3.4 Actual PSA (if available):8.5 Calcifications visualized. No peripheral zone lesions seen. Seminal vesicles are unremarkable. IMPRESSION: Discordant actual PSA with predicted PSA. No visible lesions seen. Continued follow-up advised with s erial PSA and/or ultrasound. If elevated PSA persist consider biopsy. Predicted PSA = volume x 0.12 ng/ml Calculated Volume = 0.5236 x L x W x H
== END | disposition home or self-care (01) ==
LOC: RADUSWWP 07:31
PROVIDERS: ATTEND Family Medicine
DX: N40.1 Benign prostatic hyperplasia with lower urinary tract symptoms (principal)
CPT/HCPCS: 76872

== ENCOUNTER → 2021-01-24 | Outpatient (CLI) | payer MEDICARE, OTHER ==
[2021-01-24 19:48] LABS: HCT 48.4 % (39.6-50.0); HGB 16.4 g/dL (13.0-17.0); MCH 32.1 pg (27.0-32.0); MCHC 33.9 g/dL (32.0-37.0); MCV 94.7 fL (80.0-97.0); Mean Platelet Volume 10.9 fL (9.5-12.2); Platelet Count 177 X 10*3/uL (140-440); RBC 5.11 X 10*6/uL (4.40-5.60); RDW 13.1 % (11.5-14.5); WBC 7.76 X 10*3/uL (4.50-10.00)
== END | disposition home or self-care (01) ==
LOC: LABWHC1 14:50
PROVIDERS: ATTEND Internal Medicine Interventional Cardiology
DX: I25.10 Atherosclerotic heart disease of native coronary artery without angina pectoris (principal)
CPT/HCPCS: 36415; 85027

== ENCOUNTER 2021-02-07 17:29 | Observation (INO) | payer MEDICARE, OTHER ==
[2021-02-07] MEDS ORDERED: ASPIRIN 81 MG PO STA (18:15)
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
[2021-02-07 18:25] LABS: Basophils % (A) 0 %; Eosinophils # (A) 0.1 k/uL (0-0.7); Eosinophils % (A) 1 %; HCT 45.9 % (39.0-53.0); HGB 15.8 gm/dL (13.0-17.5); Lymphocytes # (A) 1.2 k/uL (1.0-4.8); Lymphocytes % (A) 15 %; MCHC 34.5 g/dL (31.0-37.0); MCV 98.3 fL (80.0-100.0); Mean Platelet Volume 8.3; Monocytes # (A) 0.5 k/uL (0-1.0); Monocytes % (A) 6 %; Neutrophils # (A) 6.2 k/uL (1.3-7.7); Neutrophils % (A) 77 %; Platelet Count 184 k/uL (150-450); Poikilocytosis Slight; RBC 4.67 m/uL (4.30-5.90); RDW 14.2 % (11.5-15.5); WBC 8.1 k/uL (3.8-10.6)
[2021-02-07 18:34] LABS: ALT 18 U/L (4-49); AST 27 U/L (17-59); African American GFR (CKD) >90 (>60 ml/min/1.73 sqM); Albumin 4.2 g/dL (3.5-5.0); Alkaline Phosphatase 72 U/L (38-126); Anion Gap 9 mmol/L; Blood Urea Nitrogen 14 mg/dL (9-20); Calcium 9.5 mg/dL (8.4-10.2); Carbon Dioxide 21 mmol/L (22-30); Chloride 107 mmol/L (98-107); Glucose 103 mg/dL (74-99); Lipase 181 U/L (23-300); Non-African American GFR(CKD) 88 (>60 ml/min/1.73 sqM); Potassium 3.9 mmol/L (3.5-5.1); Sodium 137 mmol/L (137-145); Total Bilirubin 0.9 mg/dL (0.2-1.3); Total Protein 6.4 g/dL (6.3-8.2)
[2021-02-07 18:40] LABS: INR 1.1 (<1.2); Partial Thromboplastin Time 25.9 sec (22.0-30.0); Prothrombin Time 11.6 sec (9.0-12.0)
--- NOTE | 2021-02-07 20:08 | XR ---
EXAMINATION TYPE: XR chest 2V DATE OF EXAM: 02/07/2021 CLINICAL HISTORY: sob. TECHNIQUE: Frontal and lateral view of the chest. COMPARISON: 10/08/2018 FINDINGS: The cardiomediastinal silhouette is within normal limits for size. Pulmonary vasculature i s normal. There is no focal air space opacity. No pleural effusion. No pneumothorax seen. No acute d isplaced osseous fracture. IMPRESSION: No acute cardiopulmonary process.
[2021-02-07] MEDS ORDERED: NITROGLYCERIN SL TABS 0.4 MG TAB SUBLINGUAL PRN (21:14)
[2021-02-07] MEDS ORDERED: ACETAMINOPHEN TAB 325 MG TAB PO PRN (21:15)
[2021-02-07] MEDS ORDERED: TEMAZEPAM 15 MG CAP PO PRN (21:15)
[2021-02-07] MEDS ORDERED: ONDANSETRON 4 MG/2 ML VIAL IVP PRN (21:15)
[2021-02-07] MEDS ORDERED: NALOXONE 0.4 MG/ML 1 ML VIAL IV PRN (21:15)
[2021-02-07] MEDS ORDERED: SODIUM CHLORIDE 0.9% 1,000 ML IV SCH (21:15)
[2021-02-07] MEDS ORDERED: ALPRAZolam 0.5 MG TAB PO PRN (21:15)
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
[2021-02-08] MEDS: HEPARIN SODIUM,PORCINE/PF 5,000 UNIT/0.5 ML SYRINGE SQ SCH ×2 (00:24→09:07)
[2021-02-08] MEDS: IPRATROPIUM 0.5 MG/2.5 ML NEBU INHALATION SCH ×2 (07:18→11:27)
[2021-02-08 07:49] LABS: ALT 14 U/L (4-49); AST 22 U/L (17-59); African American GFR (CKD) >90 (>60 ml/min/1.73 sqM); Albumin 3.5 g/dL (3.5-5.0); Alkaline Phosphatase 65 U/L (38-126); Anion Gap 6 mmol/L; Blood Urea Nitrogen 16 mg/dL (9-20); Calcium 8.9 mg/dL (8.4-10.2); Carbon Dioxide 22 mmol/L (22-30); Chloride 109 mmol/L (98-107); Glucose 84 mg/dL (74-99); Magnesium 1.9 mg/dL (1.6-2.3); Non-African American GFR(CKD) >90 (>60 ml/min/1.73 sqM); Potassium 3.8 mmol/L (3.5-5.1); Sodium 137 mmol/L (137-145); Total Protein 5.7 g/dL (6.3-8.2)
[2021-02-08] MEDS ORDERED: SYMBICORT 80-4.5 MCG INHALER INHALATION SCH (08:00)
[2021-02-08 08:22] LABS: Basophils % (A) 0 %; Eosinophils # (A) 0.1 k/uL (0-0.7); Eosinophils % (A) 1 %; HCT 45.4 % (39.0-53.0); HGB 15.4 gm/dL (13.0-17.5); Lymphocytes # (A) 1.4 k/uL (1.0-4.8); Lymphocytes % (A) 23 %; MCH 33.4 pg (25.0-35.0); MCHC 33.8 g/dL (31.0-37.0); MCV 98.7 fL (80.0-100.0); Mean Platelet Volume 8.5; Monocytes # (A) 0.3 k/uL (0-1.0); Monocytes % (A) 5 %; Neutrophils # (A) 4.3 k/uL (1.3-7.7); Neutrophils % (A) 69 %; Platelet Count 155 k/uL (150-450); RBC 4.61 m/uL (4.30-5.90); RDW 13.9 % (11.5-15.5); WBC 6.3 k/uL (3.8-10.6)
[2021-02-08] MEDS ORDERED: ASPIRIN 81 MG PO SCH (09:00)
[2021-02-08] MEDS ORDERED: ATORVASTATIN 40 MG TAB PO SCH (09:00)
[2021-02-08] MEDS ORDERED: CLOPIDOGREL 75 MG TAB PO SCH (09:00)
[2021-02-08] MEDS: METOPROLOL TARTRATE 25 MG TAB PO SCH ×2 (09:04→11:59)
[2021-02-08] MEDS: ISOSORBIDE MONONITRATE ER 30 MG TAB.ER.24H PO SCH ×2 (09:05→12:00)
[2021-02-08 09:06] VITALS: RESP 18
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
[2021-02-08 12:30] VITALS: BP 163/93; PULSE 58
[2021-02-08 12:33] VITALS: TEMP 96.9
[2021-02-08] MEDS ORDERED: DILTIAZEM CD 120 MG CAP.ER.24H PO SCH (13:30)
--- NOTE | 2021-02-08 15:21 | P.DS ---
Providers Date of admission: 02/07/21 21:19 Expected date of discharge: 02/08/21 Attending physician: Tejas Pereira MD Consults: 02/07/21 21:17 Consult Physician Routine Consulting Provider: Sanchez Hanson Consult Reason/Comments: atypical chest pain Do you want consulting provider notified?: Yes, Notify in am Consult Physician Urgent Consulting Provider: [facility] Consult Reason/Comments: chest pain Do you want consulting provider notified?: Yes, Notify in am Primary care physician: Jayy Schmidt MD Hospital Course: Atypical chest pain Hypertension COPD currently compensated Patient was admitted with atypical chest pain. Seen in consultation by cardiology who cleared him for discharge with follow up. Trops were negative, EKG non-ischemic. Echo without WMA, and with good EF. No changes to home medications. Assessment: Gen: awake, alert HEENT: normocephalic, atraumatic, good hearing acuity, moist mucous membranes Resp: good air exchange, breathing comfortably with no accessory muscle use CVS: good distal perfusion x 4, GI: soft, NTTP, ND : no SPT, no CVAT, blas catheter not present MSK: no pitting edema, no clubbing Neuro: non-focal, moving all extremities Psych: cooperative, euthymic mood Plan - Discharge Summary Discharge Rx Participant: Yes New Discharge Prescriptions: Continue Nitroglycerin Sl Tabs [Nitrostat] 0.4 mg SUBLINGUAL Q5M PRN #0 tab PRN Reason: Chest Pain Aspirin 81 mg PO DAILY Clopidogrel [Plavix] 75 mg PO DAILY Isosorbide Mononitrate ER [Imdur] 30 mg PO DAILY Atorvastatin [Lipitor] 40 mg PO DAILY dilTIAZem HCL [dilTIAZem HCL 24Hr ER (Xr)] 120 mg PO PC-LUNCH Metoprolol Tartrate [Lopressor] 25 mg PO DAILY Baclofen [Lioresal] 20 mg PO BID PRN PRN Reason: Muscle Spasm Fluticasone/Umeclidin/Vilanter [Trelegy Ellipta 100-62.5-25] 1 puff INHALATION RT-DAILY Discharge Medication List Nitroglycerin Sl Tabs [Nitrostat] 0.4 mg SUBLINGUAL Q5M PRN #0 tab 09/30/14 [Rx] Aspirin 81 mg PO DAILY 12/24/19 [History] Atorvastatin [Lipitor] 40 mg PO DAILY 08/15/20 [History] Clopidogrel [Plavix] 75 mg PO DAILY 08/15/20 [History] Isosorbide Mononitrate ER [Imdur] 30 mg PO DAILY 08/15/20 [History] Metoprolol Tartrate [Lopressor] 25 mg PO DAILY 08/21/20 [History] dilTIAZem HCL [dilTIAZem HCL 24Hr ER (Xr)] 120 mg PO PC-LUNCH 08/21/20 [History] Baclofen [Lioresal] 20 mg PO BID PRN 02/07/21 [History] Fluticasone/Umeclidin/Vilanter [Trelegy Ellipta 100-62.5-25] 1 puff INHALATION RT-DAILY 02/07/21 [History] Follow up Appointment(s)/Referral(s): Ramandeep Lopez MD [STAFF PHYSICIAN] - 2 Weeks (The office will call you with appointment date and time.) Jayy Schmidt MD [Primary Care Provider] - 02/12/21 9:30 am Patient Instructions/Handouts: Chest Pain (DC) Discharge Disposition: HOME SELF-CARE
[2021-02-08 17:31] LABS: Chol/HDL Ratio 2.51; Cholesterol 103 mg/dL (0-200); LDL Cholesterol,Calculated 48.4 mg/dL (0.0-131.0)
== END 2021-02-08 14:32 | disposition home or self-care (01) ==
LOC: EC 17:29 → 6NMEDSUR 21:19 → 3SCARD 02-08 09:32
PROVIDERS: ADMIT Internal Medicine; ATTEND Internal Medicine
DX: R07.89 Other chest pain (principal); E78.5 Hyperlipidemia, unspecified; F41.9 Anxiety disorder, unspecified; G89.29 Other chronic pain; I10 Essential (primary) hypertension; I25.111 Atherosclerotic heart disease of native coronary artery with angina pectoris with documented spasm; I25.2 Old myocardial infarction; J44.9 Chronic obstructive pulmonary disease, unspecified; Z79.02 Long term (current) use of antithrombotics/antiplatelets; Z79.82 Long term (current) use of aspirin; Z79.899 Other long term (current) drug therapy; Z80.0 Family history of malignant neoplasm of digestive organs; Z82.5 Family history of asthma and other chronic lower respiratory diseases; Z86.73 Personal history of transient ischemic attack (TIA), and cerebral infarction without residual deficits; Z87.442 Personal history of urinary calculi; Z87.891 Personal history of nicotine dependence; Z90.49 Acquired absence of other specified parts of digestive tract; Z95.5 Presence of coronary angioplasty implant and graft
CPT/HCPCS: 96372; 99285; 36415; 94640 ×2; 93005 ×2; 93306; 85379; 83880; 80061; 80053 ×2; 84443; 83690; 83735; 84484 ×2; 85025 ×2; 85610; 85730; 71046; G0378 ×3; J1644

== ENCOUNTER → 2021-06-07 | Outpatient (CLI) | payer MEDICARE, OTHER ==
--- NOTE | 2021-06-07 10:31 | CT ---
EXAMINATION TYPE: CT chest wo con DATE OF EXAM: 06/07/2021 COMPARISON: CT chest 06/02/2018 HISTORY: dyspnea CT DLP: 595 mGycm. Automated Exposure Control for Dose Reduction was Utilized. TECHNIQUE: CT scan of the thorax is performed without IV contrast. FINDINGS: LUNGS: The lungs are showing paraseptal emphysematous changes especially in the upper lobes, stable s ubpleural nodule left upper lobe axial image 16 measuring only 2 to 3 mm, additional subpleural nodul e axial image #30 shows a similar size and appearance, similar nodule within the lingula on axial chris ge 36 is stable. Mild interstitial changes, interlobular septal pleural thickening lines present at t he lung bases greater on the left, some probable scarring present in the right lower lobe shows a sim ilar appearance. There is some areas of pleural thickening present. There is no pleural effusion or pneumothorax seen. The tracheobronchial tree is patent. MEDIASTINUM: Lack of IV contrast is noted to limit evaluation for mediastinal and especially hilar ad enopathy. There are no definitive greater than 1 cm hilar or mediastinal lymph nodes. No cardiomega ly or pericardial effusion is seen. Coronary artery calcifications present. Question a stent having b een placed in the interval OTHER: Postop changes are noted in the upper abdomen IMPRESSION: Emphysema and interstitial lung disease, coronary artery disease
== END | disposition home or self-care (01) ==
LOC: RADCTMAIN 07:47
PROVIDERS: ATTEND Family Medicine
DX: J43.9 Emphysema, unspecified (principal); J84.9 Interstitial pulmonary disease, unspecified; I25.10 Atherosclerotic heart disease of native coronary artery without angina pectoris
CPT/HCPCS: 71250

== ENCOUNTER 2021-10-18 08:16 | Observation (INO) | payer MEDICARE, OTHER ==
[2021-10-18] MEDS ORDERED: ASPIRIN 81 MG PO STA (08:39)
[2021-10-18] MEDS ORDERED: HYDROmorphone 0.5 MG/0.5 ML SYRINGE IVP STA (08:40)
[2021-10-18] MEDS ORDERED: PANTOPRAZOLE 40 MG/10 ML VIAL IVP STA (08:40)
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
[2021-10-18 09:25] LABS: Partial Thromboplastin Time 29.4 sec (22.0-30.0); Prothrombin Time 11.3 sec (9.0-12.0)
[2021-10-18 09:31] LABS: Basophils % (A) 1 %; Eosinophils # (A) 0.1 k/uL (0-0.7); Eosinophils % (A) 2 %; HCT 48.1 % (39.0-53.0); HGB 16.7 gm/dL (13.0-17.5); Lymphocytes # (A) 1.4 k/uL (1.0-4.8); Lymphocytes % (A) 27 %; MCH 32.8 pg (25.0-35.0); MCHC 34.6 g/dL (31.0-37.0); MCV 94.8 fL (80.0-100.0); Mean Platelet Volume 7.7; Monocytes # (A) 0.3 k/uL (0-1.0); Monocytes % (A) 6 %; Neutrophils # (A) 3.2 k/uL (1.3-7.7); Neutrophils % (A) 62 %; Platelet Count 180 k/uL (150-450); RBC 5.07 m/uL (4.30-5.90); RDW 13.9 % (11.5-15.5); WBC 5.2 k/uL (3.8-10.6)
[2021-10-18 09:37] LABS: ALT 12 U/L (4-49); AST 19 U/L (17-59); African American GFR (CKD) >90 (>60 ml/min/1.73 sqM); Albumin 3.9 g/dL (3.5-5.0); Alkaline Phosphatase 62 U/L (38-126); Amylase 44 U/L (30-110); Anion Gap 8 mmol/L; Blood Urea Nitrogen 15 mg/dL (9-20); Calcium 9.2 mg/dL (8.4-10.2); Carbon Dioxide 24 mmol/L (22-30); Chloride 106 mmol/L (98-107); Glucose 90 mg/dL (74-99); Lipase 116 U/L (23-300); Non-African American GFR(CKD) 80 (>60 ml/min/1.73 sqM); Sodium 138 mmol/L (137-145); Total Bilirubin 1.2 mg/dL (0.2-1.3); Total Protein 6.7 g/dL (6.3-8.2)
--- NOTE | 2021-10-18 09:59 | XR ---
EXAMINATION TYPE: XR chest 2V DATE OF EXAM: 10/18/2021 COMPARISON: CXR from 08/01/21. HISTORY: Shortness of breath. TECHNIQUE: Frontal and lateral views of the chest are obtained. FINDINGS: There is no suspicious focal air space opacity, pleural effusion, or pneumothorax seen. T he cardiac silhouette size is stable and upper limits of normal with atherosclerotic change aortic kn ob. Underlying Scoliosis is present. Overlying EKG leads current study. IMPRESSION: No acute process. No significant change from prior.
[2021-10-18] MEDS ORDERED: DIAZEPAM 5 MG/ML 2 ML INJ IVP STA (10:34)
[2021-10-18] MEDS ORDERED: diphenhydrAMINE 50 MG/ML 1 ML VIAL IVP STA (10:58)
[2021-10-18] MEDS ORDERED: methylPREDNISolone SOD SUCCI 125 MG/2 ML VIAL IV STA (10:58)
[2021-10-18] MEDS ORDERED: HYDROmorphone 0.5 MG/0.5 ML SYRINGE IVP PRN (12:20)
[2021-10-18] MEDS ORDERED: NALOXONE 0.4 MG/ML 1 ML VIAL IV PRN (12:20)
[2021-10-18] MEDS ORDERED: ACETAMINOPHEN TAB 325 MG TAB PO PRN (12:20)
[2021-10-18] MEDS ORDERED: ALBUTEROL NEBULIZED 2.5 MG/3 ML INHALATION PRN (12:22)
[2021-10-18] MEDS ORDERED: SODIUM CHLORIDE 0.9% 1,000 ML IV SCH (12:30)
--- NOTE | 2021-10-18 13:11 | CT ---
EXAMINATION TYPE: CT ChestAbdPelvis w con DATE OF EXAM: 10/18/2021 COMPARISON: CT chest 06/07/2021 HISTORY: chest and back pain CT DLP: 1064 mGycm Automated exposure control for dose reduction was used. CONTRAST: CT scan of the chest, abdomen and pelvis is performed without Oral Contrast and with IV Contrast, pat ient injected with 100ml mL of Isovue 300. FINDINGS: LUNGS: The lungs are grossly clear, there is no concerning parenchymal mass or nodule identified. T here is no pleural effusion or pneumothorax seen. The tracheobronchial tree is patent. Emphysematous changes are noted. Posterior subsegmental consolidation likely in the basis of atelectasis correlate clinically to exclude infiltrate. MEDIASTINUM: There are no greater than 1 cm hilar or mediastinal lymph nodes.. Tiny pericardial effus ion is seen. Coronary artery calcification. Aorta of normal caliber mild atherosclerotic changes. Sm all hiatal hernia. LIVER/GB: Reduced attenuation in the liver can be associated with mild fatty infiltration correlate c linically to exclude hepatocellular disease.. PANCREAS: No significant abnormality is seen. SPLEEN: Spleen measures 13 cm correlate compatible with borderline splenomegaly. ADRENALS: No significant abnormality is seen. KIDNEYS: Simple appearing right renal cyst no hydronephrosis. BOWEL: Bowel gas pattern nonspecific. Suggestive of previous surgery involving the right colon corre late clinically. Pathology is program millimeters which is. LYMPH NODES: No greater than 1 cm abdominal or pelvic lymph nodes are appreciated. OSSEOUS STRUCTURES: Multilevel degenerative disc disease. Postsurgical change involving the shoulders . OTHER: Nonspecific metallic densities in the left abdomen. Pelvis chronic deformity left iliac bone. Bladder distends normally. No free fluid. IMPRESSION: 1. Subsegmental basilar changes most typical of atelectasis correlate clinically to exclude infiltrat e. There is an 8 mm pulmonary nodule in the right upper lobe on axial image 29. Stable from prior CT scan. Recommend 6 month follow-up CT Scan. 2. Atherosclerotic change of aorta with no evidence of aneurysm. 3. COPD. 4. Borderline splenomegaly. Low-attenuation in the liver can be associated with hepatic steatosis. Co rrelate to exclude hepatocellular disease. 5. Coronary artery atherosclerotic disease.
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
[2021-10-18] MEDS: CYCLOBENZAPRINE 5 MG TAB PO SCH (16:40)
--- NOTE | 2021-10-18 20:15 | CA ---
Transthoracic Echo Report Name: Chapo Hewitt Age: 75 Gender: M : 1945 Exam Date: 10/18/2021 13:08 Exam Location: [facility] Ht (in): 65 Wt (lb): 180 Ordering Physician: Jose Dale Attending/Referring Phys: [employer] Worker Nichol Birch RDCS Procedure CPT: Indications: atypical chest pain Cardiac Hx: CAD Technical Quality: Technically difficult study Contrast 1: Lumason Total Dose (mL): 5 Contrast 2: Total Dose (mL): MEASUREMENTS (Male / Female) Normal Values 2D ECHO LV Diastolic Diameter PLAX 4.4 cm 4.2 - 5.9 / 3.9 - 5.3 cm LV Systolic Diameter PLAX 2.3 cm IVS Diastolic Thickness 1.0 cm 0.6 - 1.0 / 0.6 - 0.9 cm LVPW Diastolic Thickness 1.4 cm 0.6 - 1.0 / 0.6 - 0.9 cm LV Relative Wall Thickness 0.5 RV Internal Dim ED PLAX 2.4 cm LA Systolic Diameter LX 3.5 cm 3.0 - 4.0 / 2.7 - 3.8 cm M-MODE Aortic Root Diameter MM 2.9 cm LA Systolic Diameter MM 3.1 cm LA Ao Ratio MM 1.1 MV E Point Septal Separation 0.7 cm AV Cusp Separation MM 1.8 cm FINDINGS Left Ventricle Normal Left ventricular size, wall thickness, systolic function with no obvious regional wall motion abnormalities. Normal Left ventricular diastolic filling pattern. Right Ventricle Normal right ventricular size and function. Right Atrium Normal right atrial size. Left Atrium Normal left atrial size. Mitral Valve Mitral valve not well visualized. Aortic Valve Trileaflet aortic valve. Tricuspid Valve Tricuspid valve not well visualized. Pulmonic Valve Pulmonic valve not well visualized. Pericardium Echo free space anterior to the right ventricle likely represents a fat pad. Aorta Aortic root and proximal ascending aorta not well visualized. CONCLUSIONS Normal LV size and systolic function without segmental wall motion abnormalities Previewed by: Dr. Zenon Diaz MD (Electronically Signed) Final Date: 18 Oct 2021 20:14
[2021-10-18] MEDS: oxyCODONE-APAP 10-325MG 1 EACH TAB PO PRN (20:55)
[2021-10-19] MEDS ORDERED: PANTOPRAZOLE 40 MG TABLET PO SCH (07:30)
[2021-10-19] MEDS ORDERED: SYMBICORT 160-4.5 MCG INHALER INHALATION SCH (08:00)
[2021-10-19] MEDS ORDERED: IPRATROPIUM 0.5 MG/2.5 ML NEBU INHALATION SCH (08:00)
[2021-10-19 08:02] VITALS: RESP 18
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
[2021-10-19] MEDS ORDERED: ENOXAPARIN 40 MG/0.4 ML SYRINGE SQ SCH (09:00)
[2021-10-19] MEDS ORDERED: METOPROLOL TARTRATE 25 MG TAB PO SCH (09:00)
[2021-10-19] MEDS ORDERED: ASPIRIN 81 MG PO SCH (09:00)
[2021-10-19] MEDS ORDERED: CLOPIDOGREL 75 MG TAB PO SCH (09:00)
[2021-10-19] MEDS ORDERED: DILTIAZEM CD 120 MG CAP.ER.24H PO SCH (09:00)
[2021-10-19] MEDS ORDERED: ISOSORBIDE MONONITRATE ER 30 MG TAB.ER.24H PO SCH (09:00)
[2021-10-19] MEDS: CYCLOBENZAPRINE 5 MG TAB PO SCH (09:23)
[2021-10-19] MEDS: oxyCODONE-APAP 10-325MG 1 EACH TAB PO PRN ×2 (09:23→17:39)
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
--- NOTE | 2021-10-19 14:11 | XR ---
EXAMINATION TYPE: XR lumbar spine 2 or 3V DATE OF EXAM: 10/19/2021 CLINICAL HISTORY: pain TECHNIQUE: Three views of the lumbar spine are submitted. COMPARISON: None. FINDINGS: Postoperative fusion noted at L3-4 and L4-5. Pedicular screws noted at L5-3-4. Intervertebral spacer is noted at L3-4 and L4-5. Alignment demonstrates a grade 1 retrolisthesis of L3 and L4 of approximat ledy 3 mm and retrolisthesis of L2 on L3 of approximately 5 mm. No compression fracture seen. Atheroma tous change of the abdominal aorta. IMPRESSION: Postoperative alignment as noted above.
--- NOTE | 2021-10-19 14:23 | P.PN ---
Subjective Progress Note Date: 10/19/21 Principal diagnosis: Chest pain, acute lower back pain Patient was seen and examined. No acute events overnight. Patient continues to report chest pain is left-sided but aggravated with movement. He continues to report bilateral lower back pain radiating to both of his legs. Pain is sharp and stabbing in nature. Slightly improved since yesterday. Orthopedic consultation pending. Objective - Vital Signs Vital signs: Vital Signs Temp 98.3 F 10/19/21 07:00 Pulse 97 10/19/21 07:00 Resp 18 10/19/21 07:00 BP 152/93 10/19/21 07:00 Pulse Ox 92 L 10/19/21 07:00 Intake & Output 10/18/21 10/19/21 10/19/21 18:59 06:59 18:59 Intake Total 118 Output Total 900 200 Balance 118 -900 -200 Weight 81.647 kg Intake: Oral 118 Output: Urine 900 200 Other: Voiding Method Urinal # Voids 1 1 - Exam General: [non toxic], [no distress], [appears at stated age] Derm: [warm], [dry] Head: [atraumatic], [normocephalic], [symmetric] Eyes: [EOMI], [no lid lag], [anicteric sclera] Mouth: [no lip lesion], [mucus membranes moist] Cardiovascular: [S1S2 reg], [no murmur], [positive DP pulse bilateral], [tenderness to palpation over the left chest wall] Lungs: [CTA bilateral], [no rhonchi, no rales] , [no accessory muscle use] Abdominal: [soft], [ nontender to palpation], [no guarding], [no appreciable organomegaly] Ext: [no gross muscle atrophy], [no edema], [no contractures], [SLR positive bilaterally], [tenderness to palpation over the paraspinal muscles in the lumbar spine bilaterally] Neuro: [no focal neuro deficits] Psych: [Alert], [oriented], [appropriate affect] - Labs CBC & Chem 7: 10/18/21 09:02 10/18/21 09:02 Assessment and Plan Assessment: #Chest pain, atypical #Lower back pain with radiculopathy #Pulmonary nodule #Hepatic steatosis #Obesity Chronic conditions: History of TIA, dyslipidemia, hypertension, COPD Patient presents with atypical chest pain after attempting to lift 8 pound blocks repeatedly at home. His chest pain is atypical and unlikely to be cardiac in nature. ACS has been ruled out. He will be placed on telemetry monitoring. Cardiology has been consulted for further management of this patient. Patient also reports bilateral lower back pain with radiculopathy. One dose of Valium and Solumedrol given in the ED. Patient will be placed on fall precautions. Pain control with Percocet and Dilaudid as needed. Flexeril will be added for muscle spasm. PT and OT will be consulted to work with this patient. Lumbar Xray shows postoperative alignment. [facility] consulted for further management of this patient. Patient will need low-dose computed tomography scan to evaluate for pulmonary nodule seen on CT chest during this admission. This will need to be followed up with his PCP. Patient would benefit from a structured weight loss program. Patient will be restarted on aspirin, Plavix for history of TIA/CAD. Restart Cardizem, Imdur and metoprolol for history of hypertension. Restart Symbicort and PRN Albuterol nebulized treatment for history of COPD. Start Protonix for GERD. DVT prophylaxis: [Lovenox] Discussed with: [Patient and ] Anticipated discharge: [1-2 days] Anticipated discharge place: [Home] A total of [45] minutes was spent on the care of this complex patient more than 50% of the time was spent in counseling and care coordination. Patient names his decision-maker if he can make decisions for himself. Patient would like to be full code. Patient continues to reports uncontrolled pain. He is pending clinical improvement. PT and OT onboard. Orthopedic surgery on board. Anticipate DC in 1- 2 days after better pain control.
[2021-10-19 14:51] VITALS: BP 119/62; PULSE 94; TEMP 98.2
--- NOTE | 2021-10-19 17:26 | P.DS ---
Providers Date of admission: 10/18/21 12:58 Expected date of discharge: 10/19/21 Attending physician: Natalie Snow MD Consults: 10/18/21 15:30 Consult Physician Routine Consulting Provider: Jasen Blackburn Consult Reason/Comments: Back pain Do you want consulting provider notified?: Yes Primary care physician: Jayy Schmidt MD Hospital Course: Patient is a 75-year-old male with PMH of TIA, COPD, dyslipidemia, hypertension, chronic lower back pain that presents the ED for chest and back pain. His symptoms started after lifting 8 pound blocks repeatedly at home in his garden. He reports his chest pain to be left-sided, sharp and stabbing in nature. Pain is constant and radiates around his chest to his thoracic back. Pain is 9 out of 10 in severity. He also reports lower back pain, sharp and stabbing in nature that radiates down his bilateral lower extremities. He reports numbness over his left buttock. He denies any bladder or bowel incontinence. He denies any saddle anesthesia. He reports history of multiple [facility] His pain got so bad he presented to the ED for evaluation. He denies any headache, lower joon edema, nausea or vomiting, fever or chills, cough, shortness of breath, palpitations, changes in urination or bowel habits. No changes in appetite or weight. He denies any dizziness, numbness/weakness/tingling of extremities. In the ED, his vital signs were stable. CBC, coagulation profile and CMP was within normal limits. Troponin was less than 0.0122 with EKG showing sinus rhythm and T-wave inversions. CT chest abdomen pelvis showed atelectasis, 8 mm pulmonary nodule in the right upper lobe, COPD changes, splenomegaly, hepatic steatosis and CAD. Patient is admitted under observation status for chest pain, rule out acute coronary syndrome, cardiology consultation and control of his lower back pain. Acute coronary syndrome was ruled out. Cardiology was consulted and recommended echocardiogram. Echocardiogram showed normal LV size and systolic function without segmental wall motion abnormalities. Patient was cleared for discharge from cardiology perspective. Orthopedic surgery was consulted and recommended lumbar spine x-ray. Lumbar spine x-ray showed postoperative fusion noted at L3- L4 and L4-L5, pedicular screws noted at L5 3 4, intravertebral spacer noted L3- L4 and L4-L5, grade 1 retrolisthesis of L4 and L3 and retrolisthesis of L2 on L3. Orthopedic surgery cleared the patient for discharge. Patient was comfortable going home with Percocet and Flexeril as needed with outpatient follow-up with orthopedic surgery. General: [non toxic], [no distress], [appears at stated age] Derm: [warm], [dry] Head: [atraumatic], [normocephalic], [symmetric] Eyes: [EOMI], [no lid lag], [anicteric sclera] Mouth: [no lip lesion], [mucus membranes moist] Cardiovascular: [S1S2 reg], [no murmur], [positive DP pulse bilateral], [tenderness to palpation over the left chest wall] Lungs: [CTA bilateral], [no rhonchi, no rales] , [no accessory muscle use] Abdominal: [soft], [ nontender to palpation], [no guarding], [no appreciable organomegaly] Ext: [no gross muscle atrophy], [no edema], [no contractures], [SLR positive bilaterally], [tenderness to palpation over the paraspinal muscles in the lumbar spine bilaterally] Neuro: [no focal neuro deficits] Psych: [Alert], [oriented], [appropriate affect] Discharge Diagnosis: #Chest pain, atypical #Lower back pain with radiculopathy #Pulmonary nodule #Hepatic steatosis #Obesity Chronic conditions: History of TIA, dyslipidemia, hypertension, COPD Pertinent Studies: Chest XRay CT Chest Abd Pelvis Echocardiogram Lumbar spine XRay Patient Condition at Discharge: Stable Plan - Discharge Summary Discharge Rx Participant: No New Discharge Prescriptions: New oxyCODONE-APAP 10-325MG [Percocet 10-325 mg] 1 each PO Q4HR PRN #18 tab PRN Reason: Pain Continue Nitroglycerin Sl Tabs [Nitrostat] 0.4 mg SUBLINGUAL Q5M PRN #0 tab PRN Reason: Chest Pain Aspirin 81 mg PO DAILY Clopidogrel [Plavix] 75 mg PO DAILY Isosorbide Mononitrate ER [Imdur] 30 mg PO DAILY dilTIAZem HCL [dilTIAZem HCL 24Hr ER (Xr)] 120 mg PO DAILY Metoprolol Tartrate [Lopressor] 25 mg PO DAILY Cyclobenzaprine [Flexeril] 5 mg PO DAILY #14 tab Lansoprazole [Prevacid] 30 mg PO DAILY Albuterol Nebulized [Ventolin Nebulized] 2.5 mg INHALATION RT-Q6H PRN PRN Reason: Shortness Of Breath Fluticasone/Umeclidin/Vilanter [Trelegy Ellipta 200-62.5-25] 1 puff INHALATION RT-DAILY Discharge Medication List Nitroglycerin Sl Tabs [Nitrostat] 0.4 mg SUBLINGUAL Q5M PRN #0 tab 09/30/14 [Rx] Aspirin 81 mg PO DAILY 12/24/19 [History] Clopidogrel [Plavix] 75 mg PO DAILY 08/15/20 [History] Isosorbide Mononitrate ER [Imdur] 30 mg PO DAILY 08/15/20 [History] Metoprolol Tartrate [Lopressor] 25 mg PO DAILY 08/21/20 [History] dilTIAZem HCL [dilTIAZem HCL 24Hr ER (Xr)] 120 mg PO DAILY 08/21/20 [History] Albuterol Nebulized [Ventolin Nebulized] 2.5 mg INHALATION RT-Q6H PRN 10/18/21 [History] Fluticasone/Umeclidin/Vilanter [Trelegy Ellipta 200-62.5-25] 1 puff INHALATION RT-DAILY 10/18/21 [History] Lansoprazole [Prevacid] 30 mg PO DAILY 10/18/21 [History] Cyclobenzaprine [Flexeril] 5 mg PO DAILY #14 tab 10/19/21 [Rx] oxyCODONE-APAP 10-325MG [Percocet 10-325 mg] 1 each PO Q4HR PRN #18 tab 10/19/21 [Rx] Follow up Appointment(s)/Referral(s): Ramandeep Lopez MD [STAFF PHYSICIAN] - 1 Week Shin Fernandes PAC [PHYSICIAN CONTINUOUS MINING OPERATOR] - 2 Weeks (Patient may follow up with Shin Fernandes PA-C or Dr. Les Blackburn at [facility] in 2 weeks for further evaluation.) Jayy Schmidt MD [Primary Care Provider] - 1-2 days Patient Instructions/Handouts: Chest Pain (DC) Activity/Diet/Wound Care/Special Instructions: Diet: Cardiac FU with your PCP within 1-2 days of discharge. FU with Orthopedic surgery with the appointment given to you. Take all medications as advised. Discharge Disposition: HOME SELF-CARE
== END 2021-10-19 18:25 | disposition home or self-care (01) ==
LOC: EC 08:16 → 6NMEDSUR 12:58
PROVIDERS: ADMIT Family Medicine; ATTEND Family Medicine
DX: R07.89 Other chest pain (principal); M54.50 Low back pain, unspecified; G89.29 Other chronic pain; M54.16 Radiculopathy, lumbar region; M62.830 Muscle spasm of back; I25.10 Atherosclerotic heart disease of native coronary artery without angina pectoris; I70.0 Atherosclerosis of aorta; I10 Essential (primary) hypertension; J44.9 Chronic obstructive pulmonary disease, unspecified; R91.1 Solitary pulmonary nodule; J98.11 Atelectasis; E78.5 Hyperlipidemia, unspecified; K76.0 Fatty (change of) liver, not elsewhere classified; M19.90 Unspecified osteoarthritis, unspecified site; G43.909 Migraine, unspecified, not intractable, without status migrainosus; K58.9 Irritable bowel syndrome, unspecified; K21.9 Gastro-esophageal reflux disease without esophagitis; N42.9 Disorder of prostate, unspecified; M43.16 Spondylolisthesis, lumbar region; R25.8 Other abnormal involuntary movements; Z79.82 Long term (current) use of aspirin; E66.9 Obesity, unspecified; Z68.29 Body mass index [BMI] 29.0-29.9, adult; Z79.02 Long term (current) use of antithrombotics/antiplatelets; Z79.899 Other long term (current) drug therapy; Z79.51 Long term (current) use of inhaled steroids; Z91.041 Radiographic dye allergy status; Z87.891 Personal history of nicotine dependence; Z86.73 Personal history of transient ischemic attack (TIA), and cerebral infarction without residual deficits; Z98.1 Arthrodesis status; Z87.01 Personal history of pneumonia (recurrent); Z87.442 Personal history of urinary calculi; Z90.49 Acquired absence of other specified parts of digestive tract; Z86.14 Personal history of Methicillin resistant Staphylococcus aureus infection; Z95.5 Presence of coronary angioplasty implant and graft; Z87.828 Personal history of other (healed) physical injury and trauma; Z98.49 Cataract extraction status, unspecified eye; Z86.79 Personal history of other diseases of the circulatory system; Z98.890 Other specified postprocedural states; Z71.3 Dietary counseling and surveillance; X50.0XXA Overexertion from strenuous movement or load, initial encounter; Y92.009 Unspecified place in unspecified non-institutional (private) residence as the place of occurrence of the external cause; Z80.1 Family history of malignant neoplasm of trachea, bronchus and lung; Z80.0 Family history of malignant neoplasm of digestive organs; Z82.5 Family history of asthma and other chronic lower respiratory diseases
CPT/HCPCS: 96361 ×3; 96372; 96376; 96374; 96375; 99285; 36415; 94640; 93005; 97162; 97165; 80053; 82150; 83690; 83735; 84484; 85025; 85610; 85730; 72100; 71046; 71260; 74177; G0378 ×2; C8929; J1200; J2930; J3360; J1650; C9113; J1170; Q9950; Q9967; 93306

== ENCOUNTER → 2021-11-29 | Outpatient (CLI) | payer MEDICARE, OTHER ==
[2021-11-29 11:36] LABS: African American GFR (CKD) >90 (>60 ml/min/1.73 sqM); Blood Urea Nitrogen 16 mg/dL (9-20); Non-African American GFR(CKD) 88 (>60 ml/min/1.73 sqM)
--- NOTE | 2021-11-29 13:46 | CT ---
EXAMINATION TYPE: CT chest w con DATE OF EXAM: 11/29/2021 COMPARISON: CT dated 10/18/2021 HISTORY: Chronic Obstructive Pulmonary Disease CT DLP: 324.9 mGycm Automated exposure control for dose reduction was used. TECHNIQUE: CT scan of the chest is performed with IV Contrast, patient injected with 100 mL of Isovue 300. FINDINGS: LUNGS: Mild bilateral apical pulmonary fibrotic changes. Bilateral peripheral minimal pulmonary retic ulations, mainly in the right lung base. Paraseptal emphysema is seen in the upper lobes more on the right side. Stable 8 mm nodule along the transverse fissure, likely representing a fissural lymph nod e. Scattered tiny bilateral pulmonary nodules measuring up to 2 mm, all stable compared to the previo us CT scan. Patent trachea and main bronchi. No pleural effusion. MEDIASTINUM: There are no greater than 1 cm hilar or mediastinal lymph nodes. No cardiomegaly. Collins ry and arterial atherosclerotic calcifications. No pericardial effusion is seen. OTHER: Previous cholecystectomy. Right renal cyst without suspicious feature. Ileocolonic anastomosi s in the right side of the abdomen. No aggressive bone lesion. IMPRESSION: Mild COPD changes and other incidental findings as above.
== END | disposition home or self-care (01) ==
LOC: RADCTMAIN 11-15 10:54
PROVIDERS: ATTEND Internal Medicine Critical Care Medicine
DX: J44.9 Chronic obstructive pulmonary disease, unspecified (principal); I25.10 Atherosclerotic heart disease of native coronary artery without angina pectoris
CPT/HCPCS: 82565; 84520; 71260; 36415; Q9967

== ENCOUNTER → 2022-04-16 | Outpatient (CLI) | payer MEDICARE, OTHER | END | disposition home or self-care (01) | LOC: LABWHC1 14:40 | PROVIDERS: ATTEND Urology | DX: C61 Malignant neoplasm of prostate (principal) | CPT/HCPCS: 36415; 84153 ==

== ENCOUNTER → 2022-07-16 | Outpatient (CLI) | payer MEDICARE | END | disposition home or self-care (01) | LOC: LABWHC1 15:01 | PROVIDERS: ATTEND Urology | DX: C61 Malignant neoplasm of prostate (principal) | CPT/HCPCS: 36415; 84153 ==

== ENCOUNTER → 2022-11-13 | Outpatient (CLI) | payer MEDICARE ==
--- NOTE | 2022-11-13 15:45 | XR ---
EXAMINATION TYPE: XR KUB DATE OF EXAM: 11/13/2022 Comparison: 09/29/2009 Clinical History: 76-year-old male [id number] RLQ PAIN, LUMBAR PAIN Findings: Status post lower lumbar laminectomies with posterior and interbody fusion likely at L3-L4. Additiona l intraspinous fusion at L2-L3. Lateral osseous fusion lower lumbar spine. There is moderate stool bu rden. Punctate densities projecting at the left mid abdomen. Additional continued metallic debris pro jecting at the left iliac crest, probably old posterior metastatic sequela. No dilated small bowel or fluid levels. Impression: Moderate stool burden. Nonobstructive bowel gas pattern.
--- NOTE | 2022-11-13 15:48 | XR ---
EXAMINATION TYPE: XR lumbosacral spine 5 views DATE OF EXAM: 11/13/2022 Comparison: 08/05/2022 Clinical History: 76-year-old male [id number] RLQ PAIN, LUMBAR PAIN Findings: Patient is status post L3-L4 posterior and interbody fusion with fixed grade 1 retrolisthesis here. T here is intraspinous fusion at L2-L3 with fixed grade 1 retrolisthesis here as well which is unchange d. Mild degenerative disc disease characterized by disc space narrowing here. Previous interbody fusi on at L4-L5 and lateral osseous fusion lower lumbar spine. Corresponding laminectomies. Vertebral bod y heights are preserved. Additional [id number] degenerative disc disease L-1-L2 with grade 1 re trolisthesis here as well. Impression: 1. Unchanged exam with L3-L4 posterior and interbody fusion. Previous osseous fusion changes down to S1 and posterior interspinous fusion at L2-L3. 2. Fixed grade 1 retrolistheses of L2-L3 and L3-L4. 3. Degenerative grade 1 retrolisthesis L1-L2. 4. Mild to moderate degenerative disc disease at both L1-L2 and L2-L3.
== END | disposition home or self-care (01) ==
LOC: RADXRYALE 08:55
PROVIDERS: ATTEND Internal Medicine
DX: M51.16 Intervertebral disc disorders with radiculopathy, lumbar region (principal); M43.16 Spondylolisthesis, lumbar region; R10.31 Right lower quadrant pain; Z98.1 Arthrodesis status
CPT/HCPCS: 72110; 74018

== ENCOUNTER → 2023-03-05 | Outpatient (CLI) | payer MEDICARE | END | disposition home or self-care (01) | LOC: LABWHC1 11:07 | PROVIDERS: ATTEND Urology | DX: R97.20 Elevated prostate specific antigen [PSA] (principal) | CPT/HCPCS: 36415; 84153 ==

== ENCOUNTER → 2023-06-27 | Outpatient (CLI) | payer MEDICARE | END | disposition home or self-care (01) | LOC: LABWHC1 09:36 | PROVIDERS: ATTEND Radiology Radiation Oncology | DX: C61 Malignant neoplasm of prostate (principal) | CPT/HCPCS: 36415; 84153 ==

== ENCOUNTER 2023-08-22 20:36 | Emergency (ER) | payer MEDICARE ==
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
[2023-08-22 21:42] VITALS: RESP 18; TEMP 98.2
[2023-08-22] MEDS: MORPHINE SULFATE 4 MG/ML SYRINGE IVP STA (21:58)
[2023-08-22 21:59] LABS: Basophils % (A) 0 %; Eosinophils # (A) 0.1 k/uL (0-0.7); Eosinophils % (A) 2 %; HCT 43.6 % (39.0-53.0); HGB 15.6 gm/dL (13.0-17.5); Lymphocytes # (A) 0.7 k/uL (1.0-4.8); Lymphocytes % (A) 8 %; MCH 34.7 pg (25.0-35.0); MCHC 35.8 g/dL (31.0-37.0); MCV 97.1 fL (80.0-100.0); Mean Platelet Volume 8.3; Monocytes # (A) 0.4 k/uL (0-1.0); Monocytes % (A) 6 %; Neutrophils # (A) 6.5 k/uL (1.3-7.7); Neutrophils % (A) 83 %; Platelet Count 129 k/uL (150-450); RDW 14.4 % (11.5-15.5); WBC 7.8 k/uL (3.8-10.6)
[2023-08-22 22:10] LABS: Hyaline Casts,Urine 4 /lpf (0-2); Mucus,Urine Many /hpf; RBC,Urine 71 /hpf (0-5); Squamous Epithelial Cell,Urine <1 /hpf (0-4); WBC,Urine 101 /hpf (0-5)
[2023-08-22 22:15] LABS: Appearance,Urine Clear (Clear); Color,Urine Orange; Ketones,Urine Negative (Negative)
[2023-08-22 22:16] LABS: INR 1.1 (<1.2); Partial Thromboplastin Time 27.2 sec (22.0-30.0); Prothrombin Time 11.4 sec (10.0-12.5)
[2023-08-22 22:38] LABS: ALT 15 U/L (4-49); AST 23 U/L (17-59); African American GFR (CKD) 85 (>60 ml/min/1.73 sqM); Albumin 3.7 g/dL (3.5-5.0); Alkaline Phosphatase 59 U/L (38-126); Amylase 52 U/L (30-110); Anion Gap 5 mmol/L; Blood Urea Nitrogen 16 mg/dL (9-20); Calcium 8.7 mg/dL (8.4-10.2); Carbon Dioxide 26 mmol/L (22-30); Chloride 108 mmol/L (98-107); Glucose 87 mg/dL (74-99); Lipase 98 U/L (23-300); Non-African American GFR(CKD) 73 (>60 ml/min/1.73 sqM); Potassium 4.2 mmol/L (3.5-5.1); Sodium 139 mmol/L (137-145); Total Bilirubin 1.1 mg/dL (0.2-1.3); Total Protein 6.1 g/dL (6.3-8.2)
[2023-08-22] MEDS: MORPHINE SULFATE 2 MG/ML SYRINGE IVP ONE (23:34)
[2023-08-22 23:48] VITALS: BP 131/73; PULSE 66
== END 2023-08-22 23:40 | disposition home or self-care (01) ==
LOC: EC 20:36
DX: R31.9 Hematuria, unspecified (principal); J44.9 Chronic obstructive pulmonary disease, unspecified; I10 Essential (primary) hypertension; E78.5 Hyperlipidemia, unspecified; M19.90 Unspecified osteoarthritis, unspecified site; Z79.82 Long term (current) use of aspirin; Z79.899 Other long term (current) drug therapy; Z87.891 Personal history of nicotine dependence; Z91.018 Allergy to other foods; Z91.048 Other nonmedicinal substance allergy status
CPT/HCPCS: 36415; 80053; 82150; 83690; 85025; 85610; 85730; 81001; 87086; 99283; 96374; 96376; J2270 ×2

== ENCOUNTER → 2023-10-20 | Outpatient (CLI) | payer MEDICARE | END | disposition home or self-care (01) | LOC: LABWHC1 08:53 | PROVIDERS: ATTEND Radiology Radiation Oncology | DX: C61 Malignant neoplasm of prostate (principal) | CPT/HCPCS: 36415; 84153 ==

== ENCOUNTER 2024-01-03 21:05 | Emergency (ER) | payer MEDICARE ==
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
[2024-01-03 23:29] LABS: VBG PH 7.41 (7.31-7.41)
[2024-01-04 00:42] LABS: Basophils % (A) 1 %; Eosinophils # (A) 0.3 k/uL (0-0.7); Eosinophils % (A) 5 %; HCT 46.3 % (39.0-53.0); HGB 15.9 gm/dL (13.0-17.5); Lymphocytes % (A) 16 %; MCH 33.8 pg (25.0-35.0); MCHC 34.4 g/dL (31.0-37.0); MCV 98.3 fL (80.0-100.0); Mean Platelet Volume 7.9; Monocytes # (A) 0.5 k/uL (0-1.0); Monocytes % (A) 8 %; Neutrophils # (A) 4.2 k/uL (1.3-7.7); Neutrophils % (A) 68 %; Platelet Count 143 k/uL (150-450); RBC 4.71 m/uL (4.30-5.90); WBC 6.1 k/uL (3.8-10.6)
[2024-01-04 00:54] LABS: ALT 17 U/L (4-49); AST 23 U/L (17-59); African American GFR (CKD) >90 (>60 ml/min/1.73 sqM); Albumin 4.2 g/dL (3.5-5.0); Alkaline Phosphatase 57 U/L (38-126); Anion Gap 5 mmol/L; Blood Urea Nitrogen 18 mg/dL (9-20); Calcium 9.6 mg/dL (8.4-10.2); Carbon Dioxide 25 mmol/L (22-30); Chloride 107 mmol/L (98-107); Glucose 96 mg/dL (74-99); Magnesium 2.1 mg/dL (1.6-2.3); Non-African American GFR(CKD) 80 (>60 ml/min/1.73 sqM); Phosphorus 3.1 mg/dL (2.5-4.5); Potassium 4.2 mmol/L (3.5-5.1); Sodium 137 mmol/L (137-145); Total Bilirubin 1.3 mg/dL (0.2-1.3); Total Protein 6.5 g/dL (6.3-8.2)
[2024-01-04 01:01] LABS: Partial Thromboplastin Time 28.5 sec (22.0-30.0); Prothrombin Time 11.2 sec (10.0-12.5)
[2024-01-04 01:03] LABS: NT-Pro-B-Type Natriuretic Pept 113 pg/mL
[2024-01-04] MEDS: SODIUM CHLORIDE 0.9% 1,000 ML IV STA (01:09)
[2024-01-04] MEDS: diphenhydrAMINE 50 MG/ML 1 ML VIAL IVP STA (02:00)
[2024-01-04] MEDS: methylPREDNISolone SOD SUCCI 125 MG/2 ML VIAL IV STA (02:00)
[2024-01-04] MEDS: FAMOTIDINE 20 MG/2 ML VIAL IV STA (02:00)
--- NOTE | 2024-01-04 03:33 | CT ---
EXAM: CT Head Without Intravenous Contrast CLINICAL HISTORY: Reported lightheadedness and dizziness that started yesterday. TECHNIQUE: Axial computed tomography images of the head/brain without intravenous contrast. CTDI is 48.8 mGy and DLP is 1186 mGy-cm. This CT exam was performed using one or more of the following dose reduction techniques: automated exposure control, adjustment of the mA and/or kV according to patient size, and/or use of iterative reconstruction technique. COMPARISON: Head without contrast 02/14/2017 FINDINGS: Brain: No intracranial hemorrhage. No significant mass-effect. No evidence for cortical infarct. Prominent parenchymal involutional changes with diffuse prominence of the cerebral sulci and sylvian fissures, similar in morphology. Similar periventricular deep white matter hypodense changes noted. Ventricles: No midline shift. Mild prominence of the ventricles are stable in appearance to the previous examination. Bones/joints: Unremarkable. No acute fracture. Soft tissues: Unremarkable. Sinuses: Unremarkable as visualized. No acute sinusitis. Mastoid air cells: Unremarkable as visualized. No mastoid effusion. IMPRESSION: No acute intracranial process or significant alteration from the prior examination. Chronic underlying presumed age-related findings, not significantly altered from the prior examination.
--- NOTE | 2024-01-04 03:39 | CT ---
EXAM: CT Angiography Head With Intravenous Contrast CLINICAL HISTORY: Reported lightheadedness in thickness since yesterday. The patient is concern for a stroke. TECHNIQUE: Axial computed tomographic angiography images of the head with intravenous contrast. CTDI is 5 mGy and DLP is 224.35 mGy-cm. This CT exam was performed using one or more of the following dose reduction techniques: automated exposure control, adjustment of the mA and/or kV according to patient size, and/or use of iterative reconstruction technique. MIP reconstructed images were created and reviewed. COMPARISON: CT head without contrast performed earlier; CTA carotids 02/17/2017 FINDINGS: Right internal carotid artery: No acute findings. Intracranial segment is patent with no significant stenosis. No aneurysm. Right anterior cerebral artery: The right anterior cerebral artery is hypoplastic in appearance proximally, which is stable to the minimally included segment on the prior examination. There is multifocal moderate narrowing of the mid right anterior cerebral artery. However, the distal segment is patent. The right A1 segment is hypoplastic, stable. No aneurysm. Right middle cerebral artery: Unremarkable. No occlusion or significant stenosis. No aneurysm. Right posterior cerebral artery: Unremarkable. No occlusion or significant stenosis. No aneurysm. Right vertebral artery: The distal right vertebral artery is hypoplastic in appearance but remains patent. Left internal carotid artery: No acute findings. Intracranial segment is patent with no significant stenosis. No aneurysm. Left anterior cerebral artery: Unremarkable. No occlusion or significant stenosis. No aneurysm. Left middle cerebral artery: Unremarkable. No occlusion or significant stenosis. No aneurysm. Left posterior cerebral artery: Unremarkable. No occlusion or significant stenosis. No aneurysm. Left vertebral artery: Unremarkable as visualized. Basilar artery: Unremarkable. No occlusion or significant stenosis. No aneurysm. IMPRESSION: No evidence for arterial occlusion. Incidental hypoplastic appearance of the right anterior cerebral artery with multifocal narrowing in the mid segment. However, the distal segment remains patent. EXAM: CT Angiography Neck With Intravenous Contrast CLINICAL HISTORY: Reported lightheadedness in thickness since yesterday. The patient is concern for a stroke. TECHNIQUE: Routine carotid CT angiography protocol was performed with intravenous contrast. NASCET criteria using the distal ICAs for comparison were used for evaluation of stenoses. CTDI is 5 mGy and DLP is 224.35 mGy-cm. This CT exam was performed using one or more of the following dose reduction techniques: automated exposure control, adjustment of the mA and/or kV according to patient size, and/or use of iterative reconstruction technique. MIP reconstructed images were created and reviewed. COMPARISON: CTA neck 02/17/2017 FINDINGS: VASCULATURE: Right common carotid artery: Unremarkable. No occlusion or significant stenosis. No dissection. Right internal carotid artery: The right internal carotid artery is tortuous but is stable in appearance. No stenosis, occlusion or dissection. Right external carotid artery: Unremarkable. No occlusion. Right vertebral artery: The right vertebral artery is small in caliber but demonstrates no focal stenosis, occlusion or dissection. Left common carotid artery: Unremarkable. No occlusion or significant stenosis. No dissection. Left internal carotid artery: Atherosclerotic calcification of the proximal left internal carotid artery at the carotid bifurcation, progressive from the previous examination. No stenosis by NASCET criteria. The mid to distal internal carotid artery is patent. No dissection. Left external carotid artery: Unremarkable. No occlusion. Left vertebral artery: The left vertebral artery is dominant and is widely patent. No occlusion or significant stenosis. No dissection. Brachiocephalic and subclavian arteries: There is a normal branching pattern of the proximal great vessels without significant ostial stenosis. Aorta: Atherosclerotic calcification of the aorta without dissection or aneurysm. NECK: Bones/joints: Unremarkable. No acute fracture. Soft tissues: Unremarkable. Lung apices: Incidental paraseptal bullous changes, similar to minimally progressive. No focal airspace consolidation. CAROTID STENOSIS REFERENCE USING NASCET CRITERIA: % ICA stenosis = (1 - narrowest ICA diameter/diameter of distal cervical ICA) x 100. Mild - <50% stenosis. Moderate - 50-69% stenosis. Severe - 70-94% stenosis. Near occlusion - 95-99% stenosis. Occluded - 100% stenosis. IMPRESSION: Negative cervical CTA examination. No significant alteration from the prior examination.
[2024-01-04 04:16] VITALS: TEMP 97.5
[2024-01-04 04:17] VITALS: RESP 18
[2024-01-04 04:26] VITALS: BP 160/95; PULSE 61
== END 2024-01-04 04:44 | disposition home or self-care (01) ==
LOC: EC 21:05
DX: G45.9 Transient cerebral ischemic attack, unspecified (principal); R00.1 Bradycardia, unspecified; Z91.041 Radiographic dye allergy status; Z87.891 Personal history of nicotine dependence
CPT/HCPCS: 36415; 93005; 83880; 80053; 82803; 83605; 83735; 84100; 84443; 84484; 85025; 85610; 85730; 70496; 70450; 70498; 99284; 96360; Q9967

== ENCOUNTER → 2024-03-19 | Outpatient (CLI) | payer MEDICARE ==
--- NOTE | 2024-03-19 11:46 | XR ---
EXAMINATION TYPE: XR Hip Complete LT DATE OF EXAM: 03/19/2024 CLINICAL HISTORY: pain TECHNIQUE: AP and frogleg views of the left hip are obtained. COMPARISON: None. FINDINGS: There is no acute fracture/dislocation evident. The joint space appears within normal li mits. The overlying soft tissue appears unremarkable. IMPRESSION: 1. There is no acute fracture or dislocation.ICD 10 NO FRACTURE, INITIAL EVALUATION [facility], , 03/19/2024 11:44 AM
--- NOTE | 2024-03-19 12:20 | XR ---
EXAMINATION TYPE: XR lumbosacral spine min 4V DATE OF EXAM: 03/19/2024 CLINICAL HISTORY: pain COMPARISON: NONE TECHNIQUE: Frontal, lateral, and oblique images of the lumbar spine are obtained. FINDINGS: Postop fusion noted extending from L3 through L5 S1. Postoperative alignment is satisfactor y. There is grade 1 retrolisthesis of L2 on L3 of 6 mm. No compression fracture seen. Facet joint art hropathy. IMPRESSION: No acute fracture or dislocation is seen in the lumbar spine.ICD 10 NO FRACTURE, INITIAL EVALUATION [facility], , 03/19/2024 12:18 PM
== END | disposition home or self-care (01) ==
LOC: RADXRYALE 11:22
PROVIDERS: ATTEND Internal Medicine
DX: M25.552 Pain in left hip (principal); M54.51 Vertebrogenic low back pain
CPT/HCPCS: 72110; 73502

== ENCOUNTER → 2024-04-08 | Outpatient (CLI) | payer MEDICARE | END | disposition home or self-care (01) | LOC: LABWHC1 14:42 | PROVIDERS: ATTEND Radiology Radiation Oncology | DX: C61 Malignant neoplasm of prostate (principal) | CPT/HCPCS: 36415; 84153 ==

== ENCOUNTER → 2024-07-05 | Outpatient (CLI) | payer MEDICARE ==
[2024-07-05 20:13] LABS: Blood Urea Nitrogen 9.9 mg/dL (9.0-27.0); Chloride 103 mmol/L (96-109); Potassium 4.6 mmol/L (3.5-5.5); Sodium 140 mmol/L (135-145)
[2024-07-05 20:45] LABS: HCT 46.6 % (39.6-50.0); HGB 16.2 g/dL (13.0-17.0); MCH 33.8 pg (27.0-32.0); MCHC 34.8 g/dL (32.0-37.0); MCV 97.1 FL (80.0-97.0); Mean Platelet Volume 10.5 FL (9.5-12.2); NRBC Per 100 WBC 0 X 10*3/uL (0.00-0.01); Platelet Count 190 X 10*3/uL (140-440); RDW 13.4 % (11.5-14.5); WBC 7.56 X 10*3/uL (4.50-10.00)
== END | disposition home or self-care (01) ==
LOC: LABWHC1 13:22
PROVIDERS: ATTEND Internal Medicine Interventional Cardiology
DX: Z01.818 Encounter for other preprocedural examination (principal); I25.10 Atherosclerotic heart disease of native coronary artery without angina pectoris; I10 Essential (primary) hypertension
CPT/HCPCS: 36415; 80051; 82565; 84520; 85027

== ENCOUNTER 2024-07-12 08:33 | Day surgery (SDC) | payer MEDICARE ==
[~2024-07-12 08:33] MED LIST changes: -ASPIRIN 325 MG TAB PO ONE; -ASPIRIN 81 MG ONE; -ATORVASTATIN 80 MG TAB PO ONE; -HEPARIN SODIUM 1,000 UN/ML (10ML VL) IV ONE; -IOPAMIDOL-370 100ML BTL INJ ONE; -LIDOCAINE 1% INJ 10MG/ML (20 ML MDV) SQ ONE; -MIDAZOLAM 2 MG/2 ML VIAL IV ONE; -SODIUM CHLORIDE 0.9% 1,000 ML IV ONE; -SODIUM CHLORIDE 0.9% 1,000 ML in EMPTY BAG 1 BAG IV ONE; -niCARdipine Syringe (1,000 mcg/10 mL) INTRAARTER ONE
[2024-07-12] MEDS: IV FLUID CONTINUATION 1,000 ML IV ONE (09:50)
[2024-07-12] MEDS: MIDAZOLAM 2 MG/2 ML VIAL IVP ONE (10:47)
[2024-07-12] MEDS: LIDOCAINE 1% INJ 10MG/ML (20 ML MDV) SQ ONE (10:48)
[2024-07-12] MEDS: VERAPAMIL SYRINGE (5 MG/10 ML) INTRAARTER ONE (10:49)
[2024-07-12] MEDS: HEPARIN SODIUM 1,000 UN/ML (10ML VL) IVP ONE ×2 (10:53→11:05)
[2024-07-12] MEDS: HEPARIN SODIUM,PORCINE (1 ML) 2,500 UNIT in SODIUM CHLORIDE 0.9% 250 ML IRRIGATION PRN (10:53)
[2024-07-12] MEDS: HEPARIN SODIUM,PORCINE 10,000 UNIT in SODIUM CHLORIDE 0.9% 1,000 ML IRRIGATION PRN (10:53)
[2024-07-12] MEDS: IOPAMIDOL-370 100ML BTL INJ ONE (11:35)
[2024-07-12] MEDS: niCARdipine Syringe (1,000 mcg/10 mL) INTRACORON ONE (11:58)
[2024-07-12] MEDS: NITROGLYCERIN 1000MCG/10ML SYRINGE INTRACORON ONE (12:21)
[2024-07-12] MEDS: ATORVASTATIN 80 MG TAB PO STA (15:50)
[2024-07-12] MEDS: SODIUM CHLORIDE 0.9% 1,000 ML IV SCH (15:50)
[2024-07-12] MEDS: SODIUM CHLORIDE 0.9% 1,000 ML in EMPTY BAG 1 BAG IV SCH (15:50)
[2024-07-12] MEDS: ASPIRIN 325 MG TAB PO STA (15:50)
[2024-07-12] MEDS: ACETAMINOPHEN TAB 325 MG TAB PO PRN (17:05)
[2024-07-12] MEDS: TICAGRELOR 90 MG TAB PO SCH (20:36)
--- NOTE | 2024-07-13 00:04 | CC ---
CARDIAC CATHETERIZATION REPORT This procedure was performed on 07/12/2024. PROCEDURES PERFORMED: 1. Left heart catheterization and coronary angiography. 2. Percutaneous transluminal coronary angioplasty. 3. and stenting of a totally occluded mid left anterior descending with 3 drug-eluting stents. 4. Intravascular ultrasound adjunctive procedure performed after stenting of the left anterior descending. PERFORMED BY: Dr. Bill Lopez. ANESTHESIA: Moderate conscious sedation time was 101 minutes. The patient was administered Versed. Oxygen saturation, hemodynamics, and EKG were monitored closely. CLINICAL INFORMATION: Mr. Chapo Hewitt is a 78-year-old gentleman, who has undergone stenting of mid LAD in 2019 that was patent in 2020. He also had a negative stress test recently and this was in June 2024 with a small fixed anteroseptal defect. However, he continued to have angina and therefore, I recommended coronary angiography after due discussion. He also has some spasm and he is on a combination of metoprolol and Cardizem. He was also placed on Imdur. Concern was that he was having anginal symptoms with a fixed anteroseptal defect with some reversibility. PROCEDURE NOTE: Under local anesthesia and strict aseptic precautions with the help of an ultrasound, I gained access into the right radial artery. A 6-Polish introducer was placed. I used a JL3.5 and JR4 catheters, I performed diagnostic catheterization and the same right catheter was used to check LV pressure, but LV-gram was not performed. Following the intervention procedure, the sheath was taken out and TR band applied as per protocol with saturation of the fingers of the right hand of 96%. The patient received aspirin prior to the procedure and he received Brilinta 180 mg. He also received 6500 units of heparin and after an hour another 1000 units of heparin, ACT was inaccurate. The patient will be on Brilinta and aspirin without interruption for 1 year. CARDIAC CATHETERIZATION FINDINGS: The left ventricular end-diastolic pressure was 12 mmHg without any gradient across the aortic valve. CORONARY ANGIOGRAPHY FINDINGS: Right coronary artery: Dominant vessel, has minor irregularities, distally bifurcates into a larger PDA, smaller PLV, minor irregularities and entire RCA also has 30% to 40% narrowing. The PDA provides collaterals to distal LAD. No significant disease in the dominant RCA 30% to 40% narrowing. Left main coronary artery: Short patent vessel, immediately bifurcates into LAD and circumflex. No significant disease. Left anterior descending coronary artery: This vessel is totally occluded after 2 diagonal branches. Within the previous stent, there is an in-stent 100% occlusion without much antegrade flow. Left posterior circumflex coronary artery: Nondominant vessel, fair caliber vessel, has 30% to 40% narrowing, gives off a single obtuse marginal and AV groove branch. No significant disease. FINAL IMPRESSION: This patient has normal filling pressures, right dominant system with 30% to 40% RCA and circumflex disease. Total occlusion of the mid LAD that was stented in 2019 and occlusion was within the stent without much antegrade flow. Limited collaterals from RCA noted. RECOMMENDATIONS: I recommended PCI of the totally occluded LAD and performed this in the same setting. PCI PROCEDURE DETAILS: I used an XB LAD 3.5 guide catheter, a SuperCross 45 degree catheter with a Whisper long wire. With this combination, I crossed the total occlusion, kept the wire distally and pre-dilated with a 2.5 balloon. I had difficulty advancing the balloon. I switched over to a 2.0 x 20 mm balloon and gave multiple inflations almost all the way towards the apex. The distal outflow was not very good. I then dilated within the stent with a 3.25 caliber NC Trek balloon within the previous stent. Proximal to the stent, there was an area of narrowing and distal to the stent also there was an area of narrowing. After dilating the entire area, the flow was not optimal distally. I went ahead and placed a 2.5 caliber Xience stent, deployed at 14 atmospheres immediately distal to the previously placed 3.0 caliber 23 mm long stent that was placed in 2019. There was improvement in angiographic appearance. I then used a 2.25 balloon and dilated all the way to the apex the entire LAD. There was modest improvement in flow. I then deployed an 8 mm long 3.25 caliber Xience stent proximal to the previous stent. I still did not feel that the distal outflow was adequate and after some deliberation, I deployed a 2.25 caliber 8 mm Xience stent distal to the 2.25 caliber stent. With this, there was improvement in flow. The patient received intracoronary nitroglycerin as well as nicardipine. In the end, there was excellent ANNE-3 flow, but the caliber of the vessel in the distal 1/4th was small. The patient was pain free. EKG was normal. There was excellent ANNE-3 flow. Sheath was taken out and TR band applied as per protocol and he was sent to the room in a stable condition. After the dilatation, I performed intravascular ultrasound and noted that the distal 2.5 caliber stent was fully expanded, but the comparative diameter was 3.0. I therefore went back with a 3.0 NC Trek balloon and dilated the entire stented segment of the 2.5 and 2.25 caliber stents with a 3.0 balloon and this resulted in a significant improvement in angiographic appearance and flow. The patient's TR band was taken out and he was sent to the room in stable condition. Results were discussed at length with the patient as well as his . I expect he will be discharged tomorrow if he remains stable. MMODL / IJN: [id number] /
[2024-07-13 06:00] LABS: Basophils % (A) 0 %; Eosinophils # (A) 0.2 k/uL (0-0.7); Eosinophils % (A) 4 %; HCT 43.2 % (39.0-53.0); Lymphocytes # (A) 1.1 k/uL (1.0-4.8); Lymphocytes % (A) 21 %; MCH 33.2 pg (25.0-35.0); MCHC 34.8 g/dL (31.0-37.0); MCV 95.4 fL (80.0-100.0); Mean Platelet Volume 7.8; Monocytes # (A) 0.4 k/uL (0-1.0); Monocytes % (A) 8 %; Neutrophils # (A) 3.3 k/uL (1.3-7.7); Neutrophils % (A) 65 %; Platelet Count 144 k/uL (150-450); RBC 4.53 m/uL (4.30-5.90); RDW 13.3 % (11.5-15.5)
[2024-07-13 06:04] LABS: African American GFR (CKD) >90 (>60 ml/min/1.73 sqM); Anion Gap 7 mmol/L; Blood Urea Nitrogen 11 mg/dL (9-20); Calcium 9.4 mg/dL (8.4-10.2); Carbon Dioxide 22 mmol/L (22-30); Chloride 108 mmol/L (98-107); Glucose 83 mg/dL (74-99); Non-African American GFR(CKD) 79 (>60 ml/min/1.73 sqM); Potassium 3.5 mmol/L (3.5-5.1); Sodium 137 mmol/L (137-145)
[2024-07-13 07:53] VITALS: BP 144/75; RESP 20; TEMP 98
[2024-07-13 08:19] VITALS: PULSE 55
[2024-07-13] MEDS: SYMBICORT 160-4.5 MCG INHALER INHALATION SCH (08:27)
[2024-07-13] MEDS: TIOTROPIUM 2.5 MCG INHALER INHALATION SCH (08:28)
[2024-07-13] MEDS: ASPIRIN 81 MG PO SCH (08:51)
[2024-07-13] MEDS: LOSARTAN 25 MG TAB PO SCH (08:51)
[2024-07-13] MEDS: ATORVASTATIN 80 MG TAB PO SCH (08:51)
[2024-07-13] MEDS: DILTIAZEM CD 120 MG CAP.ER.24H PO SCH (08:51)
[2024-07-13] MEDS: METOPROLOL TARTRATE 12.5 MG TAB PO SCH (08:51)
[2024-07-13] MEDS: PANTOPRAZOLE 40 MG TABLET PO SCH (08:51)
--- NOTE | 2024-07-13 10:43 | P.DS ---
Providers Expected date of discharge: 07/13/24 Attending physician: Ramandeep Lopez Primary care physician: Ramya Grossman DISCHARGE DIAGNOSES: 1. CAD, hypertension, hypercholesterolemia PROCEDURES: 1. left heart catheterization, PTCA and stenting of a totally occluded mid LAD which was a in-stent restenosis, intravascular ultrasound. Stenting with drug- eluting stents with excellent result HISTORY OF PRESENTATION: this patient has been having symptoms of angina with a recent negative stress test without ischemia but a septal fixed defect with partial reversibility therefore he was advised to have elective coronary angiogram and PCI. He was brought in for the procedure electively yesterday. Coronary angiogram revealed total occlusion of the mid LAD within the previously stented segment which was stented in 2019. I performed PTCA and also placed with 3 drug-eluting stents 1 stent proximal and 2 stents distal to the previous stent in mid LAD and performed intravascular ultrasound. Excellent angiographic result was achieved HOSPITAL COURSE: patient complained of at least 2 episodes of chest pain sharp in nature lasting 3 minutes not suggestive of ischemia. Physical exam is unchanged. Vitals are stable. Heart rate is in the mid 50s. EKG this morning is unremarkable labs are good troponin was also ordered was 0.5 which is not unexpected since he had stenting of a total occlusion yesterday. DISCHARGE MEDICATIONS: discharge medications were reviewed he will be on Brilinta 90 mg twice daily, aspirin 81 mg daily, Lipitor 80 mg daily, sublingual nitroglycerin as needed, Cardizem CD1 20 mg daily metoprolol tartrate 12.5 mg daily and losartan 12.5 mg daily. I will see him in the office on July instructions regarding activity and diet were given. FOLLOW-UP: follow-up with me on July 20 in the office. Discharge instructions regarding usage of the right radial site was advised. Plan - Discharge Summary Discharge Rx Participant: No New Discharge Prescriptions: New Nitroglycerin Sl Tabs [Nitrostat] 0.4 mg SUBLINGUAL Q5M PRN #90 tab PRN Reason: Chest Pain Ticagrelor [Brilinta] 90 mg PO BID #60 tab Atorvastatin [Lipitor] 80 mg PO DAILY #90 tab Continue Aspirin 81 mg PO DAILY Isosorbide Mononitrate ER [Imdur] 30 mg PO DAILY dilTIAZem HCL [dilTIAZem HCL 24Hr ER (Xr)] 120 mg PO DAILY Metoprolol Tartrate [Lopressor] 12.5 mg PO DAILY Losartan [Cozaar] 25 mg PO DAILY Discontinued Atorvastatin [Lipitor] 40 mg PO DAILY No Action Omeprazole 20 mg PO DAILY Fluticasone/Umeclidin/Vilanter [Trelegy Ellipta 200-62.5-25] 1 puff INHALATION RT-DAILY Discharge Medication List Aspirin 81 mg PO DAILY 12/24/19 [History] Isosorbide Mononitrate ER [Imdur] 30 mg PO DAILY 08/15/20 [History] Metoprolol Tartrate [Lopressor] 12.5 mg PO DAILY 08/21/20 [History] dilTIAZem HCL [dilTIAZem HCL 24Hr ER (Xr)] 120 mg PO DAILY 08/21/20 [History] Fluticasone/Umeclidin/Vilanter [Trelegy Ellipta 200-62.5-25] 1 puff INHALATION RT-DAILY 10/18/21 [History] Losartan [Cozaar] 25 mg PO DAILY 07/08/24 [History] Omeprazole 20 mg PO DAILY 07/08/24 [History] Atorvastatin [Lipitor] 80 mg PO DAILY #90 tab 07/13/24 [Rx] Nitroglycerin Sl Tabs [Nitrostat] 0.4 mg SUBLINGUAL Q5M PRN #90 tab 07/13/24 [Rx] Ticagrelor [Brilinta] 90 mg PO BID #60 tab 07/13/24 [Rx] Follow up Appointment(s)/Referral(s): Ramandeep Lopez MD [STAFF PHYSICIAN] - 07/20/24 9:00 am (FOLLOW UP APPOINTMENT MADE )
[2024-07-13] MEDS: ISOSORBIDE MONONITRATE ER 30 MG TAB.ER.24H PO STA (11:49)
== END 2024-07-13 12:32 | disposition home or self-care (01) ==
LOC: CATHCVL 08:33 → 6NMEDSUR 12:27 → CATHCVL 07-13 12:32
PROVIDERS: ATTEND Internal Medicine Interventional Cardiology
DX: I25.10 Atherosclerotic heart disease of native coronary artery without angina pectoris (principal); I25.119 Atherosclerotic heart disease of native coronary artery with unspecified angina pectoris; I25.82 Chronic total occlusion of coronary artery; Z95.5 Presence of coronary angioplasty implant and graft; E78.00 Pure hypercholesterolemia, unspecified; I10 Essential (primary) hypertension; Z79.82 Long term (current) use of aspirin
CPT/HCPCS: 93458; C9600; 80048; 84484; 85025; 94640

== ENCOUNTER → 2024-09-27 | Outpatient (CLI) | payer MEDICARE ==
[2024-09-27 15:34] LABS: HCT 47.2 % (39.6-50.0); HGB 15.7 g/dL (13.0-17.0); MCH 32.6 pg (27.0-32.0); MCHC 33.3 g/dL (32.0-37.0); MCV 98.1 FL (80.0-97.0); Mean Platelet Volume 10.3 FL (9.5-12.2); NRBC Per 100 WBC 0 X 10*3/uL (0.00-0.01); Platelet Count 175 X 10*3/uL (140-440); RBC 4.81 X 10*6/uL (4.40-5.60); RDW 12.8 % (11.5-14.5)
[2024-09-27 16:38] LABS: ALT 13 U/L (10-49); AST 20 U/L (14-35); Albumin 4.3 g/dL (3.8-4.9); Albumin/Globulin Ratio 2.05 Ratio (1.60-3.17); Alkaline Phosphatase 77 U/L (41-126); Calcium 9.8 mg/dL (8.7-10.3); Carbon Dioxide 25.5 mmol/L (21.6-31.8); Chloride 105 mmol/L (96-109); Chol/HDL Ratio 2.56 Ratio; Globulin 2.1 g/dL (1.6-3.3); Glucose 90 mg/dL (70-110); LDL Cholesterol,Calculated 76.7 mg/dL (0.0-131.0); Potassium 4.2 mmol/L (3.5-5.5); Sodium 143 mmol/L (135-145); Total Bilirubin 1.4 mg/dL (0.3-1.2); Total Protein 6.4 g/dL (6.2-8.2)
== END | disposition home or self-care (01) ==
LOC: LABWHC1 09:20
PROVIDERS: ATTEND Internal Medicine
DX: Z00.01 Encounter for general adult medical examination with abnormal findings (principal); Z13.220 Encounter for screening for lipoid disorders; I11.9 Hypertensive heart disease without heart failure
CPT/HCPCS: 36415; 80053; 80061; 85027

== ENCOUNTER → 2024-10-04 | Outpatient (CLI) | payer MEDICARE | END | disposition home or self-care (01) | LOC: LABWHC1 11:58 | PROVIDERS: ATTEND Radiology Radiation Oncology | DX: C61 Malignant neoplasm of prostate (principal) | CPT/HCPCS: 36415; 84153 ==